=== PATIENT | female | born 1985 | race Caucasian/White ===

== ENCOUNTER → 2019-07-05 14:33 | Outpatient (BNVA) | payer MEDICAID, SELFPAY | PROVIDERS: Family Provider Family Medicine; PCP Family Medicine; Visit Provider Emergency Medicine | DX: R05 Cough (principal) | CPT/HCPCS: 71046 ==

== ENCOUNTER 2022-03-01 12:29 | Emergency (ER) | payer MEDICAID, SELFPAY ==
[2022-03-01 12:32] VITALS: BP 138/96; PULSE 105; RESP 16; TEMP 36.2; O2SAT 99; BMI 24.0
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
--- NOTE | 2022-03-01 13:04 | ECG_ITS ---
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
[2022-03-01 13:16] LABS: Glucose Point of Care 393 mg/dL (70-110)
[2022-03-01] MEDS: ondansetron 2 mg/ML SDV 2 mL 4 MG IVP (13:28)
[2022-03-01] MEDS: sodium chloride 0.9% 1,000 ML 999 ML IV (13:28)
[2022-03-01 13:39] LABS: Basophils # 0.1 10^3/uL (0.0-0.1); Basophils % 0.9 %; Eosinophils # 0.4 10^3/uL (0.0-0.8); Hematocrit 36.2 % (37.0-47.0); Lymphocytes # 3.6 10^3/uL (0.8-4.8); Lymphocytes % 33.9 %; Mean Corpuscular HGB Conc 35.9 g/dL (30.0-36.0); Mean Corpuscular Hemoglobin 31.6 pg (28.0-34.0); Mean Corpuscular Volume 87.9 fl (81-99); Mean Platelet Volume 10.5 fL (7.4-10.4); Monocytes # 0.7 10^3/uL (0.2-0.9); Monocytes % 6.4 %; Neutrophils # 5.73 10^3/uL (1.8-7.7); Neutrophils % 54.6 %; Nucleated Red Blood Cells % 0 %; Platelet Count 345 10^3/cmm (130-400); Red Blood Count 4.12 10^6/uL (4.1-5.3); Red Cell Distribution Width 11.7 % (12.1-15.1); White Blood Count 10.5 10^3/uL (4.0-10.0)
[2022-03-01 13:59] LABS: Ketone (Acetest) Serum Negative (Negative)
[2022-03-01 14:03] LABS: HCG Qualitative Urine. Negative (Negative)
[2022-03-01 14:10] VITALS: BP 140/75; PULSE 101; RESP 16; O2SAT 98
[2022-03-01 14:11] LABS: Amphetamines Screen Urine Positive (Negative); Barbiturates Screen Urine Negative (Negative); Benzodiazepines Screen Urine Negative (Negative); Cocaine Screen Urine Negative (Negative); Opiate Screen Urine Negative (Negative); PCP Screen Urine Negative (Negative); THC Screen Urine Negative (Negative)
[2022-03-01 14:18] LABS: Blood Urine 2+ (Negative); Ketones Urine 1+ (Negative); Nitrate Urine Negative (Negative); Protein Urine Trace (Negative); Specific Gravity, Urine 1.015 (1.005-1.030); Urine Appearance Clear (CLEAR); Urine Color Straw (Yellow); pH Urine 5 (5-7)
[2022-03-01 14:19] LABS: Add Urine Culture? No; Add Urine Microscopic? YES; Bacteria Urine TRACE /hpf; Bilirubin Urine Neg (Negative); Glucose Urine UA 4+ (Normal); Leukocyte Esterase Urine Negative (Negative); RBC Urine 0-4 /hpf (0-2); Urobilinogen Urine Norm (Negative); WBC Urine RARE /hpf (0-5)
[2022-03-01 14:20] LABS: Alanine Aminotransferase 15 U/L (0-33); Albumin Level 4.5 g/dL (3.5-5.2); Alkaline Phosphatase 67 U/L (35-105); Aspartate Amino Transferase 12 U/L (0-32); Blood Urea Nitrogen 18 mg/dL (6-20); Calcium 9.7 mg/dL (8.5-10.5); Carbon Dioxide 24 mmol/L (22-29); Chloride 93 mmol/L (98-107); Globulin 3.6 g/dL (1.3-4.6); Glomerular Filtration Rate 62.7 mL/min (90-130); Glucose 369 mg/dL (65-115); Magnesium 1.8 mg/dL (1.7-2.3); Osmolality Calculated 287 mOsm/kg (285-295); Salicylate 0.9 mg/dL (3-10); Sodium 130 mmol/L (136-145); Thyroid Stimulating Hormone 78.85 uIU/mL (0.27-4.20); Total Bilirubin 0.4 mg/dL (0.15-1.2); Total Protein 8.1 g/dL (6.6-8.7)
[2022-03-01 14:21] LABS: Acetaminophen < 5.0 ug/mL (10-30); Alcohol Level < 10 mg/dL (0-10)
[2022-03-01] MEDS: iohexol 350 mg/mL 100 mL Btl IV (14:45)
[2022-03-01 14:58] LABS: Free T4 Free Thyroxine 0.49 ng/dL (0.82-1.77)
[2022-03-01 15:00] VITALS: BP 104/64; PULSE 84; O2SAT 98
[2022-03-01 15:58] VITALS: BP 99/70; PULSE 83; RESP 18; O2SAT 99
== END 2022-03-01 16:11 | disposition home or self-care (01) ==
PROVIDERS: Emergency Provider Emergency Medicine; PCP Family Medicine
DX: S06.9X0A Unspecified intracranial injury without loss of consciousness, initial encounter (principal); E03.9 Hypothyroidism, unspecified; F07.81 Postconcussional syndrome; E86.0 Dehydration; T14.8XXA Other injury of unspecified body region, initial encounter; E10.9 Type 1 diabetes mellitus without complications; Y09 Assault by unspecified means
CPT/HCPCS: 36416; 70486; 70496; 70498; 80053; 80306; 80307; 81001; 81025; 82009; 82962; 83735; 84439; 84443; 85025; 93005; 96361; 96374; 99285; J2405; J7030; Q9967

== ENCOUNTER 2022-11-26 15:22 | Inpatient (IN) | payer MEDICAID, SELFPAY ==
[2022-11-26 15:29] VITALS: BP 109/73; PULSE 100; RESP 18; TEMP 36.6; O2SAT 93; BMI 24.0
--- NOTE | 2022-11-26 15:38 | W.ED.PSYCHS ---
Documented by User: MARCO ANTONIO Carrillo 11/27/22 16:59 HPI - Psych General: Chief Complaint: General Medical Stated Complaint: Mental Eval Time Seen by Provider: 11/26/22 15:38 Source: patient Mode of arrival: ambulatory Limitations: no limitations History of Present Illness: Patient is a 37-year-old female who presents to the ED today stating that she wants to get back on her antidepressant medication and wants to detox from methamphetamine. Patient tells me she used to take an antidepressant medication a long time ago (cannot give me a timeframe) and wants to be put back on this medication. She does not know the name of it. She states her depression has been worsening. She states she is not suicidal but that I will say anything that I need to say to be admitted to the stress unit . When asked if she has a primary care provider or a psychiatric medication provider that she could potentially see as an outpatient to get restarted on her antidepressant she states if you guys are not going to fucking help me then I will go out in the parking lot and kill myself . She denies HI. Denies hallucinations. complaint: feels depressed Onset (ago): week(s) Duration: constant History of same: Yes Relieving factors: none Context: significant life stressor Associated psychiatric symptoms: depression Associated symptoms: Reports depression; Deny auditory hallucinations, visual hallucinations, homicidal ideation or suicidal ideation Treatments prior to arrival: none Review of Systems Const: Denies: fever(s) or chills Card: Denies: chest pain, palpitations, lightheadedness or syncope Resp: Denies: dyspnea GI: Denies: abdominal pain, nausea, vomiting or diarrhea Skin/Breast: Denies: rash Neuro: Denies: headache(s) Psych: Reports: anxiety and depression; Denies: visual hallucinations, auditory hallucinations, suicidal ideation or homicidal ideation FOR[facility]LY [facility] ED PFSH: Medical History Hypothyroidism Psychiatric disorder Type 1 diabetes mellitus Surgical History H/O section H/O kidney removal LEFT SIDE H/O tubal ligation Social History Smoking and tobacco status: current every day smoker cigarettes Packs smoked per day: 2 Quit status (tobacco): not considering quitting Second hand smoke exposure: Yes Alcohol intake: current Alcohol intake frequency: holidays/special occasions only Substance/Drug Use: former Desire information about substance/drug rehabilitation?: No Female Reproductive History: Spontaneous abortions: No Physical Exam Const: COMMON NORMALS: no acute distress, patient oriented x3, no limitations, alert and well nourished GENERAL APPEARANCE: other (agitated) ORIENTATION/CONSCIOUSNESS: Yes awake, Yes oriented to person, Yes oriented to place and Yes oriented to time Resp: COMMON NORMALS: normal respiratory effort and clear to auscultation bilaterally AUSCULTATION: clear to auscultation bilaterally Cardio: COMMON NORMALS: regular rate and regular rhythm RATE: regular rate RHYTHM: regular rhythm Neuro: COMMON NORMALS: patient oriented x3 SENSORIUM/ORIENTATION: Yes alert, Yes oriented to person, Yes oriented to place and Yes oriented to time Psych: COMMON NORMALS: mental status grossly normal, Normal thought process present, cooperative, normal affect, speech normal, activity/motor behavior normal, denies hallucinations, denies homicidal ideation and denies suicidal ideation APPEARANCE: Yes grossly normal ATTITUDE: Yes agitated ACTIVITY/MOTOR BEHAVIOR: Yes appropriate eye contact and No psychomotor agitation SPEECH: Yes normal speech MOOD & AFFECT: Yes euthymic mood THOUGHT PROCESS: Normal thought process present THOUGHT CONTENT: Yes Normal thought content present ATTENTION/CONCENTRATION: Yes attention grossly intact and Yes concentration grossly intact MEMORY/COGNITION: Yes memory grossly intact and Yes cognition grossly intact INSIGHT: Good insight present (Psych) JUDGEMENT: Good judgement present (Psych) Course Consultations: Consultation #1: Dr. Carrasco-accepts admit to NPU pending lab clearance Vital Signs: Vital signs: Vital Signs Temperature 98.4 F 11/27/22 14:00 Pulse Rate 90 11/27/22 14:00 Respiratory Rate 20 H 11/27/22 14:00 Blood Pressure 106/66 11/27/22 14:00 Pulse Oximetry 99 11/27/22 14:00 Oxygen Delivery Me thod Room Air 11/27/22 14:00 MDM - Psych Medical Decision Making Patient will be admitted to NPU to Dr. Carrasco for treatment of depression and methamphetamine abuse pending lab clearance. ES Patient presents here with suicidal ideation she is also very hyperglycemic here due to noncompliance I did give her insulin and fluids her blood sugar is now 144 sodium is corrected now as well I did speak to Dr. Carrasco again and will admit Lab Data 11/26/22 16:37 11/26/22 20:42 Laboratory Results WBC 9.0 10^3/uL (4.0-10.0) 11/26/22 16:37 RBC 4.64 10^6/uL (4.1-5.3) 11/26/22 16:37 Hgb 14.0 g/dL (11.5-15.3) 11/26/22 16:37 Hct 40.2 % (37.0-47.0) 11/26/22 16:37 MCV 86.6 fl (81-99) 11/26/22 16:37 MCH 30.2 pg (28.0-34.0) 11/26/22 16:37 MCHC 34.8 g/dL (30.0-36.0) 11/26/22 16:37 RDW 11.9 % (12.1-15.1) L 11/26/22 16:37 Plt Count 312 10^3/cmm (130-400) 11/26/22 16:37 MPV 9.8 fL (7.4-10.4) 11/26/22 16:37 Neut % (Auto) 65.9 % 11/26/22 16:37 Lymph % (Auto) 24.9 % 11/26/22 16:37 [place] % (Auto) 5.6 % 11/26/22 16:37 Eos % (Auto) 2.7 % 11/26/22 16:37 Baso % (Auto) 0.7 % 11/26/22 16:37 Neut # (Auto) 5.96 10^3/uL (1.8-7.7) 11/26/22 16:37 Lymph # (Auto) 2.3 10^3/uL (0.8-4.8) 11/26/22 16:37 [place] # (Auto) 0.5 10^3/uL (0.2-0.9) 11/26/22 16:37 Eos # (Auto) 0.2 10^3/uL (0.0-0.8) 11/26/22 16:37 Baso # (Auto) 0.1 10^3/uL (0.0-0.1) 11/26/22 16:37 Nucleated RBC % (auto) 0 % 11/26/22 16:37 Nucleated RBCs # 0.0 /100WBC 11/26/22 16:37 Sodium 119 mmol/L (136-145) L* 11/26/22 16:37 Potassium 4.5 mmol/L (3.5-5.1) 11/26/22 16:37 Chloride 85 mmol/L (98-107) L 11/26/22 16:37 Carbon Dioxide 23 mmol/L (22-29) 11/26/22 16:37 Anion Gap 15.5 (5-19) 11/26/22 16:37 BUN 17 mg/dL (6-20) 11/26/22 16:37 Creatinine 1.0 mg/dL (0.5-0.9) H 11/26/22 16:37 GFR Calculation 62.4 mL/min (90-130) L 11/26/22 16:37 Glucose 841 mg/dL (65-115) H* 11/26/22 16:37 Calculated Osmolality 291 mOsm/kg (285-295) 11/26/22 16:37 Calcium 9.2 mg/dL (8.5-10.5) 11/26/22 16:37 Total Bilirubin 0.7 mg/dL (0.15-1.2) 11/26/22 16:37 AST 10 U/L (0-32) 11/26/22 16:37 ALT 9 U/L (0-33) 11/26/22 16:37 Alkaline Phosphatase 84 U/L (35-105) 11/26/22 16:37 Total Protein 7.6 g/dL (6.6-8.7) 11/26/22 16:37 Albumin 4.2 g/dL (3.5-5.2) 11/26/22 16:37 Globulin 3.4 g/dL (1.3-4.6) 11/26/22 16:37 HCG, Qual Negative (Negative) 11/26/22 16:37 Salicylates < 0.3 mg/dL (3-10) L 11/26/22 16:37 Acetaminophen < 5.0 ug/mL (10-30) L 11/26/22 16:37 Ethyl Alcohol < 10 mg/dL (0-10) 11/26/22 16:37 Discharge Plan Discharge Patient Disposition: Admitted As Inpatient Admit Provider: Joseph Carrasco Clinical Impression: Depression, Methamphetamine abuse, Type 1 diabetes mellitus Condition: Stable Coding Level of Care Code ED School Year Nanny for Chg Fwd Documented by User: Sirena Hernandez MD 11/26/22 21:26 HPI - Psych General: Chief Complaint: General Medical Stated Complaint: Mental Eval Time Seen by Provider: 11/26/22 15:38 PFSH ED PFSH: Medical History Hypothyroidism Psychiatric disorder Type 1 diabetes mellitus Surgical History H/O section H/O kidney removal LEFT SIDE H/O tubal ligation Social History Smoking and tobacco status: current every day smoker cigarettes Packs smoked per day: 2 Quit status (tobacco): not considering quitting Second hand smoke exposure: Yes Alcohol intake: current Alcohol intake frequency: holidays/special occasions only Substance/Drug Use: former Desire information about substance/drug rehabilitation?: No Course Vital Signs: Vital signs: Vital Signs Temperature 98.4 F 11/27/22 14:00 Pulse Rate 90 11/27/22 14:00 Respiratory Rate 20 H 11/27/22 14:00 Blood Pressure 106/66 11/27/22 14:00 Pulse Oximetry 99 11/27/22 14:00 Oxygen Delivery Me thod Room Air 11/27/22 14:00 MDM - Psych Medical Decision Making Patient will be admitted to NPU to Dr. Carrasco for treatment of depression and methamphetamine abuse. Patient presents here with suicidal ideation she is also very hyperglycemic here due to noncompliance I did give her insulin and fluids her blood sugar is now 144 sodium is corrected now as well I did speak to Dr. Carrasco again and will admit Lab Data 11/26/22 16:37 11/26/22 20:42 Laboratory Results WBC 9.0 10^3/uL (4.0-10.0) 11/26/22 16:37 RBC 4.64 10^6/uL (4.1-5.3) 11/26/22 16:37 Hgb 14.0 g/dL (11.5-15.3) 11/26/22 16:37 Hct 40.2 % (37.0-47.0) 11/26/22 16:37 MCV 86.6 fl (81-99) 11/26/22 16:37 MCH 30.2 pg (28.0-34.0) 11/26/22 16:37 MCHC 34.8 g/dL (30.0-36.0) 11/26/22 16:37 RDW 11.9 % (12.1-15.1) L 11/26/22 16:37 Plt Count 312 10^3/cmm (130-400) 11/26/22 16:37 MPV 9.8 fL (7.4-10.4) 11/26/22 16:37 Neut % (Auto) 65.9 % 11/26/22 16:37 Lymph % (Auto) 24.9 % 11/26/22 16:37 [place] % (Auto) 5.6 % 11/26/22 16:37 Eos % (Auto) 2.7 % 11/26/22 16:37 Baso % (Auto) 0.7 % 11/26/22 16:37 Neut # (Auto) 5.96 10^3/uL (1.8-7.7) 11/26/22 16:37 Lymph # (Auto) 2.3 10^3/uL (0.8-4.8) 11/26/22 16:37 [place] # (Auto) 0.5 10^3/uL (0.2-0.9) 11/26/22 16:37 Eos # (Auto) 0.2 10^3/uL (0.0-0.8) 11/26/22 16:37 Baso # (Auto) 0.1 10^3/uL (0.0-0.1) 11/26/22 16:37 Nucleated RBC % (auto) 0 % 11/26/22 16:37 Nucleated RBCs # 0.0 /100WBC 11/26/22 16:37 Sodium 119 mmol/L (136-145) L* 11/26/22 16:37 Potassium 4.5 mmol/L (3.5-5.1) 11/26/22 16:37 Chloride 85 mmol/L (98-107) L 11/26/22 16:37 Carbon Dioxide 23 mmol/L (22-29) 11/26/22 16:37 Anion Gap 15.5 (5-19) 11/26/22 16:37 BUN 17 mg/dL (6-20) 11/26/22 16:37 Creatinine 1.0 mg/dL (0.5-0.9) H 11/26/22 16:37 GFR Calculation 62.4 mL/min (90-130) L 11/26/22 16:37 Glucose 841 mg/dL (65-115) H* 11/26/22 16:37 Calculated Osmolality 291 mOsm/kg (285-295) 11/26/22 16:37 Calcium 9.2 mg/dL (8.5-10.5) 11/26/22 16:37 Total Bilirubin 0.7 mg/dL (0.15-1.2) 11/26/22 16:37 AST 10 U/L (0-32) 11/26/22 16:37 ALT 9 U/L (0-33) 11/26/22 16:37 Alkaline Phosphatase 84 U/L (35-105) 11/26/22 16:37 Total Protein 7.6 g/dL (6.6-8.7) 11/26/22 16:37 Albumin 4.2 g/dL (3.5-5.2) 11/26/22 16:37 Globulin 3.4 g/dL (1.3-4.6) 11/26/22 16:37 HCG, Qual Negative (Negative) 11/26/22 16:37 Salicylates < 0.3 mg/dL (3-10) L 11/26/22 16:37 Acetaminophen < 5.0 ug/mL (10-30) L 11/26/22 16:37 Ethyl Alcohol < 10 mg/dL (0-10) 11/26/22 16:37 Discharge Plan Discharge Patient Disposition: Admitted As Inpatient Admit Provider: Joseph Carrasco Clinical Impression: Depression, Methamphetamine abuse, Type 1 diabetes mellitus Condition: Stable Coding Level of Care Code ED School Year Nanny for 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
[2022-11-26 16:46] LABS: Basophils # 0.1 10^3/uL (0.0-0.1); Basophils % 0.7 %; Eosinophils # 0.2 10^3/uL (0.0-0.8); Eosinophils % 2.7 %; Hematocrit 40.2 % (37.0-47.0); Lymphocytes # 2.3 10^3/uL (0.8-4.8); Lymphocytes % 24.9 %; Mean Corpuscular HGB Conc 34.8 g/dL (30.0-36.0); Mean Corpuscular Hemoglobin 30.2 pg (28.0-34.0); Mean Corpuscular Volume 86.6 fl (81-99); Mean Platelet Volume 9.8 fL (7.4-10.4); Monocytes # 0.5 10^3/uL (0.2-0.9); Monocytes % 5.6 %; Neutrophils # 5.96 10^3/uL (1.8-7.7); Neutrophils % 65.9 %; Nucleated Red Blood Cells % 0 %; Platelet Count 312 10^3/cmm (130-400); Red Blood Count 4.64 10^6/uL (4.1-5.3); Red Cell Distribution Width 11.9 % (12.1-15.1)
[2022-11-26 16:58] VITALS: O2SAT 100
[2022-11-26 17:03] LABS: HCG, Serum Qual Negative (Negative)
[2022-11-26 17:04] LABS: Alanine Aminotransferase 9 U/L (0-33); Albumin Level 4.2 g/dL (3.5-5.2); Alkaline Phosphatase 84 U/L (35-105); Anion Gap 15.5 (5-19); Aspartate Amino Transferase 10 U/L (0-32); Blood Urea Nitrogen 17 mg/dL (6-20); Calcium 9.2 mg/dL (8.5-10.5); Carbon Dioxide 23 mmol/L (22-29); Chloride 85 mmol/L (98-107); Globulin 3.4 g/dL (1.3-4.6); Glomerular Filtration Rate 62.4 mL/min (90-130); Potassium 4.5 mmol/L (3.5-5.1); Total Bilirubin 0.7 mg/dL (0.15-1.2); Total Protein 7.6 g/dL (6.6-8.7)
[2022-11-26 17:14] LABS: Osmolality Calculated 291 mOsm/kg (285-295)
[2022-11-26 17:15] LABS: Acetaminophen < 5.0 ug/mL (10-30); Alcohol Level < 10 mg/dL (0-10); Salicylate < 0.3 mg/dL (3-10)
[2022-11-26 17:16] LABS: Glucose 841 mg/dL (65-115); Sodium 119 mmol/L (136-145)
[2022-11-26 18:01] LABS: ABG PCO2 40.3 mmHg (35-45); Arterial Blood Gas Hematocrit 40.6 % (37-47); Blood Gas Allen Test Pos; Blood Gas Operator Identificat CAK; Blood Gas Sample Site Brachial, right; Blood Gas Sample Type Arterial; HCO3 ABG 24.9 mmol/L (22-26); Oxygen Device ROOM AIR; PO2 ABG 87.4 mmHg (80.0-100.0)
--- NOTE | 2022-11-26 19:11 | PC.NURSE ---
96 hours rights read to patient. Patient verbalized understandings. A copy was placed at the bedside.
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
--- NOTE | 2022-11-26 19:27 | PC.NURSE ---
PT REFUSED ATIVAN STATING I FEEL MUCH CALMER NOW. I DON'T THINK I NEED IT.
[2022-11-26] MEDS: sodium chloride 0.9% 1,000 ML 999 ML IV ×2 (19:44→20:53)
[2022-11-26] MEDS: insulin regular-human 15 UNIT in SYRINGE 1 EACH IVP (19:45)
[2022-11-26 20:35] LABS: Glucose Point of Care 352 mg/dL (70-110)
[2022-11-26 21:13] LABS: Anion Gap 15.6 (5-19); Blood Urea Nitrogen 16 mg/dL (6-20); Calcium 8.6 mg/dL (8.5-10.5); Carbon Dioxide 23 mmol/L (22-29); Chloride 103 mmol/L (98-107); Glomerular Filtration Rate 62.4 mL/min (90-130); Glucose 144 mg/dL (65-115); Osmolality Calculated 290 mOsm/kg (285-295); Potassium 3.6 mmol/L (3.5-5.1); Sodium 138 mmol/L (136-145)
[2022-11-26 22:40] VITALS: BP 101/72; PULSE 107; RESP 14; TEMP 36.6; O2SAT 96
[2022-11-26 22:56] LABS: Glucose Point of Care 113 mg/dL (70-110)
[2022-11-27 06:00] VITALS: BP 105/69; PULSE 82; RESP 16; TEMP 36.9; O2SAT 98
[2022-11-27 06:18] LABS: Glucose Point of Care 305 mg/dL (70-110)
[2022-11-27] MEDS: insulin glargine 100 units/1 mL 30 UNIT SUBCUT (06:19)
[2022-11-27 08:27] LABS: Glucose Point of Care 287 mg/dL (70-110)
[2022-11-27] MEDS: levothyroxine 50 mcg Tablet 125 MCG PO (08:28)
[2022-11-27] MEDS: insulin lispro 100 unit/1 mL SUBCUT ×3 (08:29→17:56)
--- NOTE | 2022-11-27 08:53 | PC.NURSE ---
woke pt up for breakfast, pt came out of room standing by the wall near nurses station visably shaking and arms crossed around her. I asked pt if she was ok, did she go down to eat breakfast, did she need anything to drink, pt shook head no to all question. I asked patient if she would like me to bring her breakfast to her room she shook her head yes. brought pt meal to her room sat and spoke with her, she stated anxiety when asked if that was normal for her she stated no but refused any medication for anxiety. pt eating breakfast speaking to case management when i left .
--- NOTE | 2022-11-27 10:58 | PC.OT ---
OT EVALUATION ATTEMPTED TWICE THIS A.M. PATIENT IS SLEEPING SOUNDLY; WILL ATTEMPT AGAIN ON WEDNESDAY
[2022-11-27 12:11] LABS: Glucose Point of Care 238 mg/dL (70-110)
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
[2022-11-27 13:42] LABS: Amphetamines Screen Urine Positive (Negative); Barbiturates Screen Urine Negative (Negative); Benzodiazepines Screen Urine Negative (Negative); Cocaine Screen Urine Negative (Negative); Opiate Screen Urine Negative (Negative); PCP Screen Urine Negative (Negative); THC Screen Urine Negative (Negative)
[2022-11-27 14:00] VITALS: BP 106/66; PULSE 90; RESP 20; TEMP 36.9; O2SAT 99
[2022-11-27 17:50] LABS: Glucose Point of Care 250 mg/dL (70-110)
[2022-11-27 20:44] LABS: Glucose Point of Care 117 mg/dL (70-110)
[2022-11-27 20:51] VITALS: BP 115/64; PULSE 95; RESP 16; TEMP 37; O2SAT 99
[2022-11-27] MEDS: insulin glargine 100 units/1 mL 25 UNIT SUBCUT (21:03)
[2022-11-28 06:00] VITALS: BP 104/70; PULSE 77; RESP 16; TEMP 37; O2SAT 98
[2022-11-28 08:08] LABS: Glucose Point of Care 292 mg/dL (70-110)
[2022-11-28] MEDS: insulin glargine 100 units/1 mL 30 UNIT SUBCUT (08:23)
[2022-11-28] MEDS: levothyroxine 50 mcg Tablet 125 MCG PO (08:24)
[2022-11-28] MEDS: insulin lispro 100 unit/1 mL SUBCUT ×4 (08:45→20:53)
[2022-11-28 09:47] VITALS: PULSE 77; RESP 16; O2SAT 98
[2022-11-28 11:57] LABS: Glucose Point of Care 161 mg/dL (70-110)
[2022-11-28 14:00] VITALS: BP 108/69; PULSE 86; RESP 15; TEMP 36.8; O2SAT 98
--- NOTE | 2022-11-28 15:24 | W.PM.NPUPNS ---
Subjective NPU Subjective: Patient is in today reporting that she is feeling tired. We discussed the likelihood that being secondary to depression from methamphetamine. 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 Otherwise she reports doing the same as yesterday and is very tired. Staff report her being isolative, not getting out of bed except for meals. Mental Status Exam MSE Comments: This is a well-nourished well-developed white female in hospital scrubs with limited grooming and eye contact. No abnormal movements except for psychomotor retardation. Intermittently cooperative with exam in mild to moderate distress. Speech was limited and decreased rate and volume. Mood described as tired, is okay to sleep, affect congruent and less irritable. Thought process organized. Thought content: Patient endorsed suicidal ideation but denied homicidal ideation, there were no delusions reported but she appeared to be paranoid. Guarded, she denied auditory or visual hallucinations. Attention and concentration were limited and memory was somewhat reliable but none were formally tested. She alert and oriented times person and place. Insight and judgment are limited and impulse control is impaired. Vitals/I&O/Wt Last Vital Signs Temp 98.2 F 11/28/22 14:00 Pulse 106 H 11/28/22 21:27 Resp 18 11/28/22 21:27 BP 106/74 11/28/22 21:27 Pulse Ox 97 11/28/22 21:27 O2 Del Method Room Air 11/28/22 14:00 Weight last 48 hrs Weight 61.779 kg Data NPU 11/26/22 16:37 11/26/22 20:42 A&P Assessment and plan (1) Depression: Qualifiers: Active/Remission status: currently active Major depression episode severity: unspecified Major depression recurrence: recurrent (2) Hypothyroidism: (3) Type 1 diabetes mellitus: (4) H/O kidney removal: (5) Methamphetamine use disorder, severe: Plan This is a 37-year-old white female with a long history of mental health and addiction issues who presents reporting ongoing depression with active addiction specifically with amphetamines who presents with suicidal ideation and reports for need to restart her medication. 1. Continue current medication. Restart Lexapro to milligrams p.o. every morning. 2. Continue every 15 minute checks for safety. 3. Encourage individual, group and milieu therapy. 4. Encourage sober living treatment after discharge at the highest level care to which she is willing to commit. Involuntary Hold Information 96 Hour Hold: 96 Hour Involuntary Admission: Yes 96 Hour Hold Ending Date: 12/02/22 96 Hour Hold Ending Time: 18:29 Attestations NPU Medical Necessity Statement*: Inpatient hospitalization is medically necessary and the clinically appropriate intervention at this time. We will monitor medications and make changes as indicated. Likely to stay 4-6 days. Coding Level of Care Code Acute Code for Chg Fwd Diagnoses Depression F32.A Active/Remission status: currently active Major depression episode severity: unspecified Major depression recurrence: recurrent Hypothyroidism E03.9 Type 1 diabetes mellitus E10.9 H/O kidney removal Z90.5 Methamphetamine use disorder, severe F15.20
[2022-11-28] MEDS: escitalopram 10 mg Tablet PO (15:58)
[2022-11-28 17:12] LABS: Glucose Point of Care 255 mg/dL (70-110)
[2022-11-28] MEDS: insulin glargine 100 units/1 mL 25 UNIT SUBCUT (20:53)
[2022-11-28 21:18] LABS: Glucose Point of Care 194 mg/dL (70-110)
[2022-11-28 21:27] VITALS: BP 106/74; PULSE 106; RESP 18; O2SAT 97
[2022-11-29 06:00] VITALS: BP 100/67; PULSE 85; RESP 16; TEMP 36.7; O2SAT 97
[2022-11-29 08:00] VITALS: PULSE 74; RESP 18; O2SAT 97
[2022-11-29 08:08] LABS: Glucose Point of Care 101 mg/dL (70-110)
[2022-11-29] MEDS: levothyroxine 50 mcg Tablet 125 MCG PO (08:34)
[2022-11-29] MEDS: escitalopram 10 mg Tablet PO (08:35)
[2022-11-29] MEDS: insulin glargine 100 units/1 mL 30 UNIT SUBCUT ×2 (08:36→09:07)
--- NOTE | 2022-11-29 10:29 | P.NPUPN_ITS ---
Subjective NPU Subjective: Patient presented today reporting that she is feeling worse. She reports that she has a 7-day custodial term treatment To serve for having a positive drug screen. She is unsure whether she has to serve this before going to [facility] or after she goes there. She reports that that is her plan however to get through this withdrawal and get on this antidepressant and go there for a year. Mental Status Exam MSE Comments: This is a well-nourished well-developed white female in hospital scrubs with limited grooming and eye contact. No abnormal movements except for psychomotor retardation. Intermittently cooperative with exam in mild to moderate distress. Speech was limited and decreased rate and volume. Mood described as tired, is okay to sleep, affect congruent and less irritable. Thought process organized. Thought content: Patient endorsed suicidal ideation but denied homicidal ideation, there were no delusions reported but she appeared to be paranoid. Guarded, she denied auditory or visual hallucinations. Attention and concentration were limited and memory was somewhat reliable but none were formally tested. She alert and oriented times person and place. Insight and judgment are limited and impulse control is impaired. Vitals/I&O/Wt Last Vital Signs Temp 98.1 F 11/29/22 06:00 Pulse 85 11/29/22 06:00 Resp 16 11/29/22 06:00 BP 100/67 11/29/22 06:00 Pulse Ox 97 11/29/22 06:00 O2 Del Method Room Air 11/28/22 14:00 Weight last 48 hrs Weight 61.779 kg Data NPU 11/26/22 16:37 11/26/22 20:42 A&P Assessment and plan (1) Depression: Qualifiers: Active/Remission status: currently active Major depression episode severity: unspecified Major depression recurrence: recurrent (2) Hypothyroidism: (3) Type 1 diabetes mellitus: (4) H/O kidney removal: (5) Methamphetamine use disorder, severe: Plan This is a 37-year-old white female with a long history of mental health and addiction issues who presents reporting ongoing depression with active addiction specifically with amphetamines who presents with suicidal ideation and reports for need to restart her medication. 1. Continue current medication. Restarted Lexapro to milligrams p.o. every morning. 2. Continue every 15 minute checks for safety. 3. Encourage individual, group and milieu therapy. 4. Encourage sober living treatment after discharge at the highest level care to which she is willing to commit. Involuntary Hold Information 96 Hour Hold: 96 Hour Involuntary Admission: Yes 96 Hour Hold Ending Date: 12/02/22 96 Hour Hold Ending Time: 18:29 Attestations NPU Medical Necessity Statement*: Inpatient hospitalization is medically necessary and the clinically appropriate intervention at this time. We will monitor medications and make changes as indicated. Likely to stay 2-4 days. Coding Level of Care Code Acute Code for g Fwd Diagnoses Depression F32.A Active/Remission status: currently active Major depression episode severity: unspecified Major depression recurrence: recurrent Hypothyroidism E03.9 Type 1 diabetes mellitus E10.9 H/O kidney removal Z90.5 Methamphetamine use disorder, severe F15.20
[2022-11-29 11:54] LABS: Glucose Point of Care 174 mg/dL (70-110)
[2022-11-29] MEDS: insulin lispro 100 unit/1 mL SUBCUT ×2 (12:00→17:59)
[2022-11-29 14:00] VITALS: BP 104/70; PULSE 87; RESP 14; TEMP 36.7; O2SAT 98
[2022-11-29 17:32] LABS: Glucose Point of Care 177 mg/dL (70-110)
[2022-11-29 20:20] VITALS: BP 103/69; PULSE 86; RESP 16; TEMP 36.9; O2SAT 98
[2022-11-29 20:35] LABS: Glucose Point of Care 375 mg/dL (70-110)
[2022-11-29] MEDS: insulin glargine 100 units/1 mL 25 UNIT SUBCUT (20:42)
--- NOTE | 2022-11-29 20:44 | PC.NURSE ---
pt blood glucose at HS was 375mg/dL, pt accepted scheduled dose of lantus but refused fast acting humalog d/t concern that combined it would bottom out her blood sugar. this nurse informed the pt of her blood sugar level and importance of glycemic control and pt reiterated her concern over possible hypoglycemia. this nurse administered lantus and wasted 12 units fast acting insulin in the pyxis and placed in sharps container.
[2022-11-30 06:00] VITALS: BP 103/69; PULSE 85; RESP 16; TEMP 36.6; O2SAT 97
[2022-11-30] MEDS: levothyroxine 125 mcg Tablet PO (06:08)
[2022-11-30 08:52] LABS: Glucose Point of Care 279 mg/dL (70-110)
[2022-11-30] MEDS: insulin lispro 100 unit/1 mL SUBCUT ×2 (08:52→17:52)
[2022-11-30] MEDS: escitalopram 10 mg Tablet PO (08:53)
[2022-11-30] MEDS: insulin glargine 100 units/1 mL 30 UNIT SUBCUT (08:53)
--- NOTE | 2022-11-30 09:03 | PC.NURSE ---
Patient uncooperative with full assessment. Attempted to ask her multiple questions, but just replied, I don't know. I just want to go to bed, to every question. Patient appears irritated, with arms crossed.
[2022-11-30 11:59] LABS: Glucose Point of Care 68 mg/dL (70-110)
[2022-11-30 14:00] VITALS: BP 112/56; PULSE 87; RESP 16; TEMP 36.5; O2SAT 97
--- NOTE | 2022-11-30 15:23 | P.NPUPN_ITS ---
Subjective NPU Subjective: Patient presents today reporting that she is doing fine. 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 She continues to be quite isolative but appears to be recovering from her methamphetamine withdrawal. She denies any problems medication and we discussed the likelihood of discharge this week. Mental Status Exam MSE Comments: This is a well-nourished well-developed white female in hospital scrubs with limited grooming and eye contact. No abnormal movements except for psychomotor retardation. Intermittently cooperative with exam in mild to moderate distress. Speech was limited and decreased rate and volume. Mood described as tired, is okay to sleep, affect congruent and less irritable. Thought process organized. Thought content: Patient endorsed suicidal ideation but denied homicidal ideation, there were no delusions reported but she appeared to be paranoid. Guarded, she denied auditory or visual hallucinations. Attention and concentration were limited and memory was somewhat reliable but none were form ally tested. She alert and oriented times person and place. Insight and judgment are limited and impulse control is impaired. Vitals/I&O/Wt Last Vital Signs Temp 98.5 F 11/30/22 20:31 Pulse 91 11/30/22 20:31 Resp 16 11/30/22 20:31 BP 95/65 11/30/22 20:31 Pulse Ox 99 11/30/22 20:31 O2 Del Method Room Air 11/30/22 20:00 Weight last 48 hrs Weight 61.779 kg Data NPU 11/26/22 16:37 11/26/22 20:42 A&P Assessment and plan (1) Depression: Qualifiers: Active/Remission status: currently active Major depression episode severity: unspecified Major depression recurrence: recurrent (2) Hypothyroidism: (3) Type 1 diabetes mellitus: (4) H/O kidney removal: (5) Methamphetamine use disorder, severe: Plan This is a 37-year-old white female with a long history of mental health and addiction issues who presents reporting ongoing depression with active addiction specifically with amphetamines who presents with suicidal ideation and reports for need to restart her medication. 1. Continue current medication. Restarted Lexapro to milligrams p.o. every morning. 2. Continue every 15 minute checks for safety. 3. Encourage individual, group and milieu therapy. 4. Encourage sober living treatment after discharge at the highest level care to which she is willing to commit. Involuntary Hold Information 96 Hour Hold: 96 Hour Involuntary Admission: Yes 96 Hour Hold Ending Date: 12/02/22 96 Hour Hold Ending Time: 18:29 Attestations NPU Medical Necessity Statement*: Inpatient hospitalization is medically necessary and the clinically appropriate intervention at this time. We will monitor medications and make changes as indicated. Likely to stay 1-3 days. Coding Level of Care Code Acute Code for Chg Fwd Diagnoses Depression F32.A Active/Remission status: currently active Major depression episode severity: unspecified Major depression recurrence: recurrent Hypothyroidism E03.9 Type 1 diabetes mellitus E10.9 H/O kidney removal Z90.5 Methamphetamine use disorder, severe F15.20
[2022-11-30 17:46] LABS: Glucose Point of Care 371 mg/dL (70-110)
[2022-11-30 20:00] VITALS: PULSE 76; RESP 18; O2SAT 96
[2022-11-30 20:31] VITALS: BP 95/65; PULSE 91; RESP 16; TEMP 36.9; O2SAT 99
[2022-11-30 20:34] LABS: Glucose Point of Care 214 mg/dL (70-110)
[2022-11-30] MEDS: insulin glargine 100 units/1 mL 25 UNIT SUBCUT (20:34)
[2022-12-01 05:58] LABS: Glucose Point of Care 129 mg/dL (70-110)
[2022-12-01 05:58] LABS: Glucose Point of Care 52 mg/dL (70-110)
[2022-12-01] MEDS: levothyroxine 125 mcg Tablet PO (05:59)
[2022-12-01 06:00] VITALS: BP 123/80; RESP 18; TEMP 36.5; O2SAT 100
--- NOTE | 2022-12-01 06:21 | PC.NURSE ---
0535: patient presented to nursing station requesting a snack, denied need for BS check. After 2 puddings and crackers, she asked for her BS to be checked. 0542: accucheck 52, patient given orange juice with sugar, three servings of peanut butter and a sandwich. VSS, Dr Carrasco notified and requested hospitalist be consulted. Call placed to Dr Wallace, number given for Dr Carrasco. Repeat BS at [phone]
[2022-12-01 08:05] VITALS: BP 104/68; PULSE 95; RESP 16; TEMP 36.6; O2SAT 99
[2022-12-01 08:14] LABS: Glucose Point of Care 248 mg/dL (70-110)
[2022-12-01] MEDS: insulin lispro 100 unit/1 mL SUBCUT ×2 (08:44→18:03)
[2022-12-01] MEDS: escitalopram 10 mg Tablet PO (08:44)
[2022-12-01] MEDS: insulin glargine 100 units/1 mL 25 UNIT SUBCUT (08:45)
[2022-12-01 12:19] LABS: Glucose Point of Care 59 mg/dL (70-110)
[2022-12-01 12:38] LABS: Glucose Point of Care 50 mg/dL (70-110)
--- NOTE | 2022-12-01 12:41 | PC.NURSE ---
Addendum entered by Ivonne Handley RN 12/01/22 12:49: RECHECKED AT 1248 AND WENT UP TO 60. WILL RECHECK AFTER PT EATS LUNCH. INSULIN HELD. DR. NEVAREZ NOTIFIED. Original Note: PT BLOOD SUGAR CHECKED AT 1220 BEFORE LUNCH AND CAME BACK 58. PT WAS GIVEN PEANUT BUTTER CRACKERS AND SANDWICH. AFTER 15 MINUTES IT WAS RECHECKED AND IT HAD GONE DOWN TO 50. NOTIFIED DR. NEVAREZ. PT WAS GIVEN PEANUT BUTTER CRACKERS, ORANGE JUICE WITH SUGAR AND SOME HONEY. PT REMAINED UP BY THE NURSES STATION. WILL RECHECK AGAIN IN 10 MINUTES AND NOTIFY PROVIDER.
[2022-12-01 12:52] LABS: Glucose Point of Care 60 mg/dL (70-110)
[2022-12-01 13:18] LABS: Glucose Point of Care 97 mg/dL (70-110)
--- NOTE | 2022-12-01 13:57 | W.PM.NPUPNS ---
Subjective NPU Subjective: Patient presented today continuing to be fairly isolative but reporting that she is just cold and that is why she is staying under the cover. We discussed her plan moving forward and she reports that she feels good enough to begin the discharge process and faced the challenges she has ahead of her. We were able to talk to [facility] and they are going to pick her up tomorrow and they will assist her in managing her reported 7-day [place] shock days that she must perform secondary to her dirty urine. She reports that the medication is working well. We agreed that the additional day will be helpful to secondary to her to blood sugar episodes that were low and led to a hospitalist consult. We discussed having the hospitalist make adjustments that we will be able to be managed outpatient. Mental Status Exam MSE Comments: This is a well-nourished well-developed white female in hospital scrubs with limited grooming and eye contact. No abnormal movements except for psychomotor retardation. Intermittently cooperative with exam in mild to moderate distress. Speech was limited and decreased rate and volume. Mood described as I think I am going to be ready, is okay to sleep, affect congruent and less irritable. Thought process organized. Thought content: Patient endorsed suicidal ideation but denied homicidal ideation, there were no delusions reported but she appeared to be paranoid. Guarded, she denied auditory or visual hallucinations. Attention and concentration were limited and memory was somewhat reliable but none were formally tested. She alert and oriented times person and place. Insight and judgment are limited and impulse control is impaired. Vitals/I&O/Wt Last Vital Signs Temp 97.9 F 12/01/22 08:05 Pulse 95 12/01/22 08:05 Resp 16 12/01/22 08:05 BP 104/68 12/01/22 08:05 Pulse Ox 99 12/01/22 08:05 O2 Del Method Room Air 12/01/22 10:25 Data NPU 11/26/22 16:37 11/26/22 20:42 A&P Assessment and plan (1) Depression: Qualifiers: Active/Remission status: currently active Major depression episode severity: unspecified Major depression recurrence: recurrent (2) Hypothyroidism: (3) Type 1 diabetes mellitus: (4) H/O kidney removal: (5) Methamphetamine use disorder, severe: Plan This is a 37-year-old white female with a long history of mental health and addiction issues who presents reporting ongoing depression with active addiction specifically with amphetamines who presents with suicidal ideation and reports for need to restart her medication. 1. Continue current medication. Restarted Lexapro 10 milligrams p.o. every morning. 2. Continue every 15 minute checks for safety. 3. Encourage individual, group and milieu therapy. 4. Encourage sober living treatment after discharge at the highest level care to which she is willing to commit. 5. Plan for discharge tomorrow. Involuntary Hold Information 96 Hour Hold: 96 Hour Involuntary Admission: Yes 96 Hour Hold Ending Date: 12/02/22 96 Hour Hold Ending Time: 18:29 Attestations NPU Medical Necessity Statement*: Inpatient hospitalization is medically necessary and the clinically appropriate intervention at this time. We will monitor medications and make changes as indicated. Likely length of stay 1 days. Coding Level of Care Code Acute Code for g Fwd Diagnoses Depression F32.A Active/Remission status: currently active Major depression episode severity: unspecified Major depression recurrence: recurrent Hypothyroidism E03.9 Type 1 diabetes mellitus E10.9 H/O kidney removal Z90.5 Methamphetamine use disorder, severe F15.20
[2022-12-01 14:00] VITALS: BP 96/64; PULSE 101; RESP 16; TEMP 36.2; O2SAT 100
--- NOTE | 2022-12-01 14:53 | PM.CONSULT ---
Providers/Reason For Consult Consulting Physician/Specialty*: Antonio Quiñonez MD Reason for Consult*: Diabetes, hypoglycemia Requesting Physician: Dr. Carrasco Attending Physician: Joseph Carrasco MD History of Present Illness History of Present Illness Ling Humphrey is a 37 year old female Who was admitted to the neuropsychiatric unit with methamphetamine use disorder and depression on November 26. She has type 1 diabetes which is treated with insulin. She was noted to be hypoglycemic this morning, and a consult was called to the hospitalist from Dr. Carrasco. When I visited the patient this morning she had no specific concerns, feeling better after having oral intake. She reports she has no impairments with eating at the hospital. She confirmed her home medication list. Review of Systems General: Reports: 10 or more systems reviewed and unremarkable except in HPI and below Medications/Allergies Home Medications Medication Instructions Recorded Confirmed Last Taken Type albuterol sulfate 90 mcg/actuation 2 puff inhalation Q6H PRN 07/30/20 11/26/22 Unknown Rx aerosol inhaler shortness of breath or wheezing #8.5 grams insulin aspart U-100 100 unit/mL See Rx Instructions SUBCUT TID #15 03/01/22 11/26/22 Unknown Rx (3 mL) subcutaneous pen mL levothyroxine 125 mcg capsule 125 mcg PO DAILY 05/28/22 11/26/22 Unknown History ondansetron 4 mg disintegrating 4 mg PO Q6H PRN nausea and 06/19/22 11/26/22 Unknown Rx tablet vomiting #12 tabs insulin glargine 100 unit/mL See Rx Instructions SUBCUT QDAY 07/23/22 11/26/22 Unknown History subcutaneous solution Allergies Allergy/AdvReac Type Severity Reaction Status Date / Time No Known Allergies Allergy Verified 07/23/22 13:25 Current Medications Generic Name Dose Route Start Last Admin Trade Name Freq PRN Reason Stop Dose Admin Escitalopram Oxalate 10 mg 11/28/22 15:05 12/01/22 08:44 Escitalopram 10 Mg Tablet PO 10 mg DAILY MARY Administration Insulin Glargine 25 unit 12/01/22 08:00 12/01/22 08:45 Insulin Glargine 100 Units/1 Ml SUBCUT 25 unit QAM@08 MARY Administration Insulin Human Lispro 0 unit 11/27/22 08:00 12/01/22 12:23 Insulin Lispro 100 Unit/1 Ml SUBCUT Not Given WM&BEDTIME MARY Protocol Levothyroxine Sodium 125 mcg 11/30/22 06:00 12/01/22 05:59 Levothyroxine 125 Mcg Tablet PO 125 mcg 0600 MARY Administration PFSH Acute PFSH: Medical History Hypothyroidism Psychiatric disorder Type 1 diabetes mellitus Surgical History H/O section H/O kidney removal LEFT SIDE H/O tubal ligation Social History Smoking and tobacco status: current every day smoker cigarettes Packs smoked per day: 2 Quit status (tobacco): not considering quitting Second hand smoke exposure: Yes Alcohol intake: current Alcohol intake frequency: holidays/special occasions only Substance/Drug Use: former Desire information about substance/drug rehabilitation?: No Female Reproductive History: Spontaneous abortions: No Vitals/I&O/Wt Last Vital Signs Temp 97.2 F L 12/01/22 14:00 Pulse 101 H 12/01/22 14:00 Resp 16 12/01/22 14:00 BP 96/64 12/01/22 14:00 Pulse Ox 100 12/01/22 14:00 O2 Del Method Room Air 12/01/22 14:00 Physical Exam Narrative: General exam is a white female, no distress Neck is supple Cardiovascular regular rate and rhythm Lungs clear Abdomen is soft, positive bowel sounds Extremities no cyanosis clubbing or edema Data 11/26/22 16:37 11/26/22 20:42 Other Labs: Blood sugars reviewed in detail A&P Assessment and plan (1) Hypoglycemia: Patient was hypoglycemic this morning, with blood sugar around 52. I did confirm her home medicine regimen I initially reduced her insulin to 25 units in the morning and 20 units in the evening, 10 units reduction in her overall requirement. Since then she has had a lower blood sugar around noon. I will therefore reduce her to 20 units in the morning and 15 units in the evening. Okay to continue sliding scale insulin, mild (2) Type 1 diabetes mellitus: See above Plan Thank you for this consultation, I will continue to follow along with you Consult Attestations Medical Necessity Statement: As per primary Diagnoses Hypoglycemia E16.2 Type 1 diabetes mellitus E10.9 Time Spent (min) 39
[2022-12-01 17:17] LABS: Glucose Point of Care 316 mg/dL (70-110)
[2022-12-01 19:57] LABS: Glucose Point of Care 157 mg/dL (70-110)
[2022-12-01 20:00] VITALS: BP 107/64; PULSE 88; RESP 23; TEMP 37.1; O2SAT 97
[2022-12-01] MEDS: insulin glargine 100 units/1 mL 15 UNIT SUBCUT (21:03)
[2022-12-01 22:00] VITALS: BP 107/64; PULSE 88; RESP 23; TEMP 37.1; O2SAT 97
[2022-12-02 02:56] LABS: Glucose Point of Care 100 mg/dL (70-110)
[2022-12-02 06:00] VITALS: BP 105/69; PULSE 92; RESP 14; O2SAT 99
[2022-12-02 06:01] LABS: Glucose Point of Care 97 mg/dL (70-110)
[2022-12-02] MEDS: levothyroxine 125 mcg Tablet PO (06:01)
--- NOTE | 2022-12-02 07:44 | W.PM.EVENTAC ---
Event Note Event Note: Blood sugar acceptable this morning after adjustments in insulin. If discharged, please discharge on amount of Lantus she is on now. Please call with any questions.
[2022-12-02] MEDS: escitalopram 10 mg Tablet PO (08:15)
[2022-12-02 08:37] LABS: Glucose Point of Care 112 mg/dL (70-110)
[2022-12-02 12:01] LABS: Glucose Point of Care 242 mg/dL (70-110)
[2022-12-02] MEDS: insulin lispro 100 unit/1 mL SUBCUT (12:08)
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
[2022-12-02 14:00] VITALS: BP 113/67; PULSE 97; RESP 18; TEMP 37; O2SAT 99
[2022-12-02 14:46] VITALS: BP 113/67; PULSE 97; RESP 18; TEMP 37; O2SAT 99
== END 2022-12-02 14:54 | disposition home or self-care (01) | DRG 885 ==
LOC: ER 16:31 → NP 17:15
PROVIDERS: Physician Assistant; Admitting Provider Psychiatry & Neurology Psychiatry; Emergency Provider Emergency Medicine; Visit Provider Psychiatry & Neurology Psychiatry
DX: F33.9 Major depressive disorder, recurrent, unspecified (principal); F15.20 Other stimulant dependence, uncomplicated; F17.210 Nicotine dependence, cigarettes, uncomplicated; E03.9 Hypothyroidism, unspecified; E10.649 Type 1 diabetes mellitus with hypoglycemia without coma; Z90.5 Acquired absence of kidney
CPT/HCPCS: 36415; 36416; 36600; 80048; 80053; 80306; 80307; 82803; 82962; 84703; 85025; 96372; 97165; 99238; 99285; J1815; J7030

== ENCOUNTER 2023-02-17 20:38 | Emergency (ER) | payer MEDICAID, SELFPAY ==
[2023-01-25 11:37] VITALS: BP 105/74; BMI 26.6
[2023-02-17 20:52] VITALS: PULSE 93; RESP 18; TEMP 36.9; O2SAT 99; BMI 26.4
--- NOTE | 2023-02-17 21:24 | W.ED.WEAKNES ---
HPI - Weakness General: Chief complaint: Weakness Stated complaint: abnormal labs Time Seen by Provider: 02/17/23 21:17 Source: patient Mode of arrival: ambulatory Limitations: no limitations History of Present Illness: This patient presents to our emergency department because of turns about her fluctuating blood sugars over the past several days. She states that she was at a behavioral health clinician's office today who sent her to [place] to get some laboratories to evaluate her but she went to the [facility] in [place] and then subsequently they told her to go to the emergency department at [facility] and she did not want to wait and so she returned back to this facility for evaluation. She is known diabetic for the last 6 years insulin requiring. She just had a regimen changed today and so has not instituted a new regimen. She states she has had decreased urine output today despite drinking what she thinks is a normal amount of fluids. She denies any fevers or chills nausea vomiting or diarrhea. She has had a prior right nephrectomy as well as C-sections and a tubal ligation. She smokes tobacco but does not use any street drugs and does not drink alcohol. No one else is ill at home and she has not had fevers chills etc. Associated symptoms: Denies chest pain, chills, dysuria, fever(s), headache(s), nausea, syncope or vomiting Review of Systems Const: Denies: fever(s) or chills Eyes: Denies: change in vision ENMT: Denies: throat pain, odynophagia, nasal discharge or nasal congestion Card: Denies: chest pain, syncope or pre-syncope Resp: Denies: dyspnea, productive cough or non-productive cough GI: Denies: abdominal pain, nausea, vomiting or diarrhea : Reports: oliguria; Denies: flank pain, difficulty voiding, dysuria or urinary frequency Musc: Denies: neck pain, back pain, extremity pain or extremity swelling Skin/Breast: Denies: rash or pruritus Neuro: Denies: headache(s), numbness in extremities or weakness in extremities Endo: Reports: tired all the time; Denies: polyuria or polydipsia PFS ED PFSH: Medical History Hypothyroidism Methamphetamine abuse Psychiatric care Psychiatric disorder Type 1 diabetes mellitus Surgical History H/O section H/O kidney removal LEFT SIDE H/O tubal ligation Social History Smoking and tobacco status: current every day smoker cigarettes Packs smoked per day: 1 Years cigarettes smoked: 13 Quit status (tobacco): not considering quitting Second hand smoke exposure: Yes Alcohol intake: current Alcohol intake frequency: holidays/special occasions only Substance/Drug Use: former Date of last use: 11/24/22 Desire information about substance/drug rehabilitation?: No Adopted: No Caregiver/support person: Yes (director global) Lives independently: No Household members: other Details: lives at [facility] Housing: House Marital status: Number of children: 2 Number of grandchildren: 0 Highest education level completed: High School Graduate Education level details: 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 She speaks in a goal-directed albeit rapid voice. Const: COMMON NORMALS: no acute distress, average body habitus and patient oriented x3 GENERAL APPEARANCE: cooperative and comfortable ORIENTATION/CONSCIOUSNESS: Yes awake HENMT: COMMON NORMALS: normocephalic, Normal nasal mucous membranes and turbinates present, moist oral mucous membranes and oropharynx normal HEAD & SCALP: normocephalic FACE & SINUS: normal facial exam NOSE: Normal nasal mucous membranes and turbinates present Eye: COMMON NORMALS: Equal, round and reactive pupils present, EOMs intact bilaterally and conjunctivae normal CONJUNCTIVA: Yes conjunctivae normal PUPIL: Yes Equal, round and reactive pupils present Neck/C-Spine: COMMON NORMALS: full ROM, no lymphadenopathy and no meningeal signs Chest: COMMONS NORMALS: normal inspection of the chest Resp: COMMON NORMALS: normal respiratory effort, No retractions, No use of accessory muscles and clear to auscultation bilaterally EFFORT & INSPECTION: Yes able to speak in complete sentences AUSCULTATION: clear to auscultation bilaterally Cardio: COMMON NORMALS: regular rate, regular rhythm, No murmurs present (Cardio) and Peripheral pulses 2+ throughout RATE: regular rate RHYTHM: regular rhythm PERIPHERAL PULSES: Peripheral pulses 2+ throughout GI: COMMON NORMALS: Normal to inspection, nondistended, normoactive bowel sounds present, Soft to palpation and non-tender PALPATION: Yes Soft to palpation : COMMON NORMALS: Yes no CVA tenderness BLADDER/KIDNEY EXAM: Yes no CVA tenderness Back/Pelvis: COMMON NORMALS: no CVA tenderness, thoracic and lumbar spine normal to inspection, no thoracic nor lumbar tenderness and thoraco-lumbar ROM normal Extremity: COMMON NORMALS: normal to inspection, full ROM, capillary refill normal, no calf tenderness and no pedal edema Neuro: COMMON NORMALS: patient oriented x3, moves all extremities, no focal motor deficits and no sensory deficits noted MENINGEAL SIGNS: Yes no meningeal signs CRANIAL NERVES: Yes CN normal except as noted Psych: COMMON NORMALS: mental status grossly normal Skin: COMMON NORMALS: no rashes or lesions noted, no wounds, turgor normal and no jaundice GENERAL SKIN EXAM: no rashes or lesions noted and turgor normal Course Reevaluation(s): Reevaluation #1: The patient is receiving IV fluids. He remains clinically stable. We reviewed her laboratory findings with her. She is ketone negative and has normal CO2. She does have increased osmolality but this will respond to IV fluids. We will give her an additional short acting acting insulin in the emergency department and plan on discharging her to home so that she can continue to manage her diabetes with her combination of long-acting insulin with her sliding scale. She voiced understanding of our discussion and was agreeable to the plan. Time: 22:24 Vital Signs: Vital signs: Vital Signs Temperature 98.4 F 02/17/23 20:52 Pulse Rate 93 02/17/23 20:52 Respiratory Rate 18 02/17/23 20:52 Pulse Oximetry 99 02/17/23 20:52 Oxygen Delivery Me thod Room Air 02/17/23 20:52 MDM - Weakness Medical Decision Making This patient came to the emergency department for screening laboratories that were requested by her treating clinician. She had initially went to [place] to get the laboratories done but did not want to wait at [facility] which was extremely busy. She then made her way to our emergency department. She is had her insulin regimen just changed today because she has been very brittle. She has not had any issues that suggest infection such as fever chills dysuria nausea vomiting diarrhea etc. Her clinical examination is reassuring. She was alert without any focal findings. Laboratories were obtained to include ketones comprehensive metabolic profile CBC as well as urinalysis. Ketones were negative both in urine and blood and her CO2 is reassuring. She did have elevation in her serum osmolality distant with some volume depletion looking at her BUN but she does have preserved renal function. Plan will be to rehydrate her in the emergency department give her an additional shorting acting insulin to cover her and then discharge her to home care. She has a glucometer and insulin sliding scale etc. as needed to provide treatment. There is no evidence at this time clinically to suggest infection or other perturbation or ongoing emergency medical condition. Medical Records I reviewed the patient's medical records. Preserved renal function noted previously Lab Data I reviewed the patient's lab results. 02/17/23 21:02/17/23: Laboratory Results WBC 8.28 10^3/uL (3.29-11.43) 02/17/23 21: RBC 4.51 10^6/uL (3.85-5.65) 02/17/23: Hgb 13.30 g/dL (11.27-16.99) 02/17/23 21: Hct 40.7 % (36-47) 02/17/23: MCV 90.2 fl (85-98) 02/17/23: MCH 29.5 pg (27-33) 02/17/23 21: MCHC 32.7 g/dL (30-55) 02/17/23: RDW 13.3 % (12.1-15.1) 02/17/23: Plt Count 339 10^3/cmm (157-399) 02/17/23: MPV 10.2 fL (7.4-10.4) 02/17/23 21: Neut % (Auto) 50.0 % 02/17/23: Lymph % (Auto) 34.5 % 02/17/23: Grayson % (Auto) 7.7 % 02/17/23: Eos % (Auto) 6.5 % 02/17/23 21: Baso % (Auto) 1.1 % 02/17/23 21: Neut # (Auto) 4.13 10^3/uL (1.8-7.7) 02/17/23: Lymph # (Auto) 2.9 10^3/uL (0.8-4.8) 02/17/23: Grayson # (Auto) 0.6 10^3/uL (0.2-0.9) 02/17/23: Eos # (Auto) 0.5 10^3/uL (0.0-0.8) 02/17/23: Baso # (Auto) 0.1 10^3/uL (0.0-0.1) 02/17/23: Nucleated RBC % (auto) 0 % 02/17/23: Nucleated RBCs # 0.0 /100WBC 02/17/23 21: Sodium 134 mmol/L (136-145) L 02/17/23 21: Potassium 4.9 mmol/L (3.5-5.1) 02/17/23: Chloride 98 mmol/L (98-107) 02/17/23: Carbon Dioxide 26 mmol/L (22-29) 02/17/23: Anion Gap 14.9 (5-19) 02/17/23: BUN 25 mg/dL (6-20) H 02/17/23: Creatinine 0.8 mg/dL (0.5-0.9) 02/17/23: GFR Calculation 80.7 mL/min (90-130) L 02/17/23 21: Glucose 408 mg/dL (65-115) H 02/17/23: Calculated Osmolality 300 mOsm/kg (285-295) H 02/17/23: Calcium 9.8 mg/dL (8.5-10.5) 02/17/23: Total Bilirubin 0.2 mg/dL (0.15-1.2) 02/17/23: AST 15 U/L (0-32) 02/17/23: ALT 13 U/L (0-33) 02/17/23 21:27 Alkaline Phosphatase 70 U/L (35-105) 02/17/23 21:27 Total Protein 8.0 g/dL (6.6-8.7) 02/17/23 21: Albumin 4.7 g/dL (3.5-5.2) 02/17/23 21: Globulin 3.3 g/dL (1.3-4.6) 02/17/23 21:27 HCG, Qual Negative (Negative) 02/17/23 21:13 Urine Color Light yellow (Yellow) 02/17/23 21:13 Urine Appearance Sl hazy (CLEAR) A 02/17/23 21:13 Urine pH 5 (5-7) 02/17/23 21:13 Ur Specific Liberty 1.010 (1.005-1.030) 02/17/23 21:13 Urine Protein Neg (Negative) 02/17/23 21:13 Urine Glucose (UA) 4+ (Normal) H 02/17/23 21:13 Urine Ketones Negative (Negative) 02/17/23 21:13 Urine Blood Neg (Negative) 02/17/23 21:13 Urine Nitrate Negative (Negative) 02/17/23 21:13 Urine Bilirubin Neg (Negative) 02/17/23 21:13 Urine Urobilinogen Neg mg/dL (Negative) 02/17/23 21:13 Ur Leukocyte Esterase Negative (Negative) 02/17/23 21:13 Urine RBC None /hpf (0-2) 02/17/23 21:13 Urine WBC None /hpf (0-5) 02/17/23 21:13 Ur Squamous Epith Cells 5-10 /hpf (0-5) H 02/17/23 21:13 Amorphous Sediment 2+ /hpf 02/17/23 21:13 Urine Bacteria 1+ /hpf (NONE) H 02/17/23 21:13 Serum Ketones Negative (Negative) 02/17/23 21:27 Discharge Plan Discharge Patient Disposition: Home Clinical Impression: Dehydration, Type 1 diabetes mellitus, Elevated blood sugar Condition: Stable Prescriptions: No Action insulin glargine 100 unit/mL Solution 20 unit SUBCUT QAM@08 Qty: 5 0RF insulin glargine 100 unit/mL Solution 15 unit SUBCUT BEDTIME Qty: 5 0RF albuterol sulfate 90 mcg/actuation HFA aerosol inhaler 2 puff INHALATION Q6H PRN (Reason: shortness of breath or wheezing) Qty: 8.5 0RF ondansetron 4 mg tablet,disintegrating 4 mg PO Q6H PRN (Reason: nausea and vomiting) Qty: 12 0RF Rx Instructions: 340b please insulin aspart U-100 100 unit/mL (3 mL) insulin pen See Rx Instructions SUBCUT TID Qty: 15 3RF Rx Instructions: S/S PLUS 1UNIT FOR EVERY 6G OF CARBS SUBCUT three times daily; levothyroxine 125 mcg capsule 125 mcg PO DAILY Qty: 30 0RF Discharge Orders: Discharge ED (Routine); Ordered 02/17/23 Ordered By: Keyur Fuentes Referrals: Shanti Lee DO [Primary Care Provider] - 1 week Discharge Diet: Diabetic Discharge Activity: Increase activity as tolerated Patient Instructions: Opioid Safety, Pain Management Activity Restrictions/Additional Instructions: Continue to monitor your blood sugars 4 times daily until you chief control and return to a normal blood sugar for you. Use the new insulin dosing and sliding scale as prescribed by your clinician.. Drinking at least 2 quarts of water daily in addition to your usual fluid intake as well as your usual diabetic diet. If it anytime you develop fevers chills inability to tolerate oral intake persistent blood sugars over 500 or any other concerns return to this or the nearest emergency department Coding Level of Care Code ED Analytical Lab Analyst for 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
[2023-02-17 21:33] LABS: Basophils # 0.1 10^3/uL (0.0-0.1); Basophils % 1.1 %; Eosinophils # 0.5 10^3/uL (0.0-0.8); Eosinophils % 6.5 %; Hematocrit 40.7 % (36-47); Lymphocytes # 2.9 10^3/uL (0.8-4.8); Lymphocytes % 34.5 %; Mean Corpuscular HGB Conc 32.7 g/dL (30-55); Mean Corpuscular Hemoglobin 29.5 pg (27-33); Mean Corpuscular Volume 90.2 fl (85-98); Mean Platelet Volume 10.2 fL (7.4-10.4); Monocytes # 0.6 10^3/uL (0.2-0.9); Monocytes % 7.7 %; Neutrophils # 4.13 10^3/uL (1.8-7.7); Nucleated Red Blood Cells % 0 %; Platelet Count 339 10^3/cmm (157-399); Red Blood Count 4.51 10^6/uL (3.85-5.65); Red Cell Distribution Width 13.3 % (12.1-15.1); White Blood Count 8.28 10^3/uL (3.29-11.43)
[2023-02-17 21:41] LABS: HCG Qualitative Urine. Negative (Negative)
[2023-02-17 21:45] LABS: Add Urine Culture? No; Add Urine Microscopic? YES; Amorphous Sediment Urine 2+ /hpf; Bacteria Urine 1+ /hpf; Bilirubin Urine Neg (Negative); Blood Urine Neg (Negative); Glucose Urine UA 4+ (Normal); Ketones Urine Negative (Negative); Leukocyte Esterase Urine Negative (Negative); Nitrate Urine Negative (Negative); Protein Urine Neg (Negative); Urine Appearance SL Hazy (CLEAR); Urine Color Light yellow (Yellow); Urobilinogen Urine Neg (Negative); pH Urine 5 (5-7)
[2023-02-17 21:46] LABS: Ketone (Acetest) Serum Negative (Negative)
[2023-02-17 21:50] LABS: Alanine Aminotransferase 13 U/L (0-33); Albumin Level 4.7 g/dL (3.5-5.2); Alkaline Phosphatase 70 U/L (35-105); Anion Gap 14.9 (5-19); Aspartate Amino Transferase 15 U/L (0-32); Blood Urea Nitrogen 25 mg/dL (6-20); Calcium 9.8 mg/dL (8.5-10.5); Carbon Dioxide 26 mmol/L (22-29); Chloride 98 mmol/L (98-107); Globulin 3.3 g/dL (1.3-4.6); Glomerular Filtration Rate 80.7 mL/min (90-130); Glucose 408 mg/dL (65-115); Osmolality Calculated 300 mOsm/kg (285-295); Potassium 4.9 mmol/L (3.5-5.1); Sodium 134 mmol/L (136-145); Total Bilirubin 0.2 mg/dL (0.15-1.2)
[2023-02-17] MEDS: sodium chloride 0.9% 1,000 ML 999 ML IV (21:50)
[2023-02-17 22:00] VITALS: BP 98/56; PULSE 89; RESP 16; O2SAT 96
[2023-02-17] MEDS: insulin lispro 100 unit/1 mL 10 UNIT SUBCUT (22:31)
[2023-02-17 23:08] LABS: Glucose Point of Care 327 mg/dL (70-110)
[2023-02-17 23:17] VITALS: BP 95/55; PULSE 87; RESP 16; O2SAT 98
== END 2023-02-17 23:26 | disposition home or self-care (01) ==
PROVIDERS: Emergency Provider Emergency Medicine; PCP Family Medicine
DX: E10.65 Type 1 diabetes mellitus with hyperglycemia (principal); E86.0 Dehydration; Z79.4 Long term (current) use of insulin; F17.210 Nicotine dependence, cigarettes, uncomplicated
CPT/HCPCS: 36416; 80053; 81001; 81025; 82009; 82962; 85025; 96360; 96372; 99284; J1815; J7030

== ENCOUNTER 2023-03-29 15:55 | Inpatient (IN) | payer MEDICAID, SELFPAY ==
[2023-01-25 11:37] VITALS: BP 105/74; BMI 26.6
[2023-03-29] VITALS (13 sets, daily range): BP systolic 84–123; BP diastolic 62–87; PULSE 80–106; RESP 15–20; TEMP 36.4; O2SAT 97–100; BMI 26.2
--- NOTE | 2023-03-29 15:57 | ECG_ITS ---
[facility] Test Date: 2023-03-29 Pat Name: Ling Humphrey Department: Room: Gender: Female Director Of Business Services: : 1985 Requested By: Candido Hein Order Number: [id number] Collette MD: Zahra Edwards M.D. Measurements Intervals [place] Rate: 92 P: 66 OH: 149 QRS: 58 QRSD: 65 T: 59 QT: 347 QTc: 431 Interpretive Statements SINUS RHYTHM LOW QRS VOLTAGE IN PRECORDIAL LEADS [QRS DEFLECTION < 1.0 mV IN CHEST LEADS] Compared to ECG 03/01/2022 13:11:22 Sinus tachycardia no longer present Electronically Signed On 03-29-2023 17:44:34 CDT by Zahra Edwards M.D. [id number]
[2023-03-29 16:18] LABS: Basophils # 0.1 10^3/uL (0.0-0.1); Basophils % 0.9 %; Eosinophils # 0.2 10^3/uL (0.0-0.8); Eosinophils % 1.7 %; Hematocrit 47.4 % (36-47); Lymphocytes % 23.2 %; Mean Corpuscular HGB Conc 33.1 g/dL (30-55); Mean Corpuscular Hemoglobin 29.7 pg (27-33); Mean Corpuscular Volume 89.8 fl (85-98); Mean Platelet Volume 10.6 fL (7.4-10.4); Monocytes # 0.5 10^3/uL (0.2-0.9); Monocytes % 5.4 %; Neutrophils # 5.97 10^3/uL (1.8-7.7); Neutrophils % 68.6 %; Nucleated Red Blood Cells % 0 %; Platelet Count 375 10^3/cmm (157-399); Red Blood Count 5.28 10^6/uL (3.85-5.65); Red Cell Distribution Width 12.5 % (12.1-15.1); White Blood Count 8.71 10^3/uL (3.29-11.43)
--- NOTE | 2023-03-29 16:34 | ED_ITS ---
HPI - Nausea/Vomiting/Diarrhea General: Chief complaint: Nausea/Vomiting/Diarrhea Stated complaint: high glucose, n,v Time Seen by Provider: 03/29/23 15:57 Source: patient Mode of arrival: EMS History of Present Illness: 37-year-old female presents emergency room complaint nausea vomiting diarrhea and hyperglycemia. Patient is a insulin-dependent diabetic and has a history of methamphetamine addiction. She used methamphetamines over the weekend and since then has had elevated blood sugars with nausea vomiting and some diarrhea. She has been taking her insulin for the last 2 weeks either. No fevers sweats or chills. No hematochezia melena hematemesis cough nemesis dysuria urgency or frequency or hematuria. MD elicited complaint: nausea, vomiting and diarrhea PFS ED PFSH: Medical History Hypothyroidism Methamphetamine abuse Psychiatric care Psychiatric disorder Type 1 diabetes mellitus Surgical History H/O section H/O kidney removal LEFT SIDE H/O tubal ligation Social History Smoking and tobacco/nicotine status: current every day tobacco/nicotine user cigarettes Packs smoked per day: 1 Years cigarettes smoked: 13 Quit status (tobacco/nicotine): not considering quitting Second hand smoke exposure: Yes Alcohol intake: current Alcohol intake frequency: holidays/special occasions only Substance/Drug Use: former Date of last use: 11/24/22 Adopted: No Caregiver/support person: Yes (program services assistant) Lives independently: No Household members: other Details: lives at [facility] house Housing: House Marital status: Number of children: 2 Number of grandchildren: 0 Highest education level completed: High School Graduate Education level details: Has [employer], [place] Development service: No Current occupational status: unemployed Current occupational exposures/hazards: No Pets and animals: No Leisure activites: volunteer work Sexually active: No Do you think of yourself as: Straight/Heterosexual Current gender identity: Female Flavia/Restoration: Orthodoxy Special flavia needs: No Female Reproductive History: Date of last menstrual period: 03/28/23 Para: 2 Spontaneous abortions: No Course Vital Signs: Vital signs: Vital Signs Temperature 97.5 F L 03/29/23 16:01 Pulse Rate 106 H 03/29/23 16:01 Respiratory Rate 20 H 03/29/23 16:01 Blood Pressure 123/87 03/29/23 16:01 Pulse Oximetry 97 03/29/23 16:01 MDM - Nausea/Vomiting/Diarrhea Medical Decision Making DKA secondary to noncompliance exacerbated by methamphetamine use. Labs reviewed discussed with hospitalist all discussed with patient fluids given. Patient admitted to the ICU orders written Medical Records I reviewed the patient's medical records. Lab Data I reviewed the patient's lab results. 03/29/23 16:12 03/29/23 16:12 Radiology Impressions Chest X-Ray 03/29/23 16:40 IMPRESSION: No acute findings. Laboratory Results WBC 8.71 10^3/uL (3.29-11.43) 03/29/23 16:12 RBC 5.28 10^6/uL (3.85-5.65) 03/29/23 16:12 Hgb 15.70 g/dL (11.27-16.99) 03/29/23 16:12 Hct 47.4 % (36-47) H 03/29/23 16:12 MCV 89.8 fl (85-98) 03/29/23 16:12 MCH 29.7 pg (27-33) 03/29/23 16:12 MCHC 33.1 g/dL (30-55) 03/29/23 16:12 RDW 12.5 % (12.1-15.1) 03/29/23 16:12 Plt Count 375 10^3/cmm (157-399) 03/29/23 16:12 MPV 10.6 fL (7.4-10.4) H 03/29/23 16:12 Neut % (Auto) 68.6 % 03/29/23 16:12 Lymph % (Auto) 23.2 % 03/29/23 16:12 [place] % (Auto) 5.4 % 03/29/23 16:12 Eos % (Auto) 1.7 % 03/29/23 16:12 Baso % (Auto) 0.9 % 03/29/23 16:12 Neut # (Auto) 5.97 10^3/uL (1.8-7.7) 03/29/23 16:12 Lymph # (Auto) 2.0 10^3/uL (0.8-4.8) 03/29/23 16:12 [place] # (Auto) 0.5 10^3/uL (0.2-0.9) 03/29/23 16:12 Eos # (Auto) 0.2 10^3/uL (0.0-0.8) 03/29/23 16:12 Baso # (Auto) 0.1 10^3/uL (0.0-0.1) 03/29/23 16:12 Nucleated RBC % (auto) 0 % 03/29/23 16:12 Nucleated RBCs # 0.0 /100WBC 03/29/23 16:12 Specimen Type Arterial 03/29/23 16:24 Sample Site Brachial, left 03/29/23 16:24 ABG pH 7.27 (7.35-7.45) L 03/29/23 16:24 ABG pO2 117.0 mmHg (80.0-100.0) H 03/29/23 16:24 ABG HCO3 8.5 mmol/L (22-26) L 03/29/23 16:24 ABG O2 Saturation 99.2 03/29/23 16:24 ABG Base Excess -15.8 mmol/L (-2.0-2.0) L 03/29/23 16:24 Cale Test Neg 03/29/23 16:24 A-a O2 Gradient 0.9 mmHg (5-10) L 03/29/23 16:24 Hematocrit 46.7 % (37-47) 03/29/23 16:24 Hgb O2 Saturation 96.4 % (95-100) 03/29/23 16:24 Carboxyhemoglobin 1.8 %THgb (0.4-20.1) 03/29/23 16:24 Methemoglobin 1.0 % (0.4-1.5) 03/29/23 16:24 Total Hemoglobin 15.2 g/dL (12-16) 03/29/23 16:24 Sodium 129.0 mmol/L (131-143) L 03/29/23 16:24 Potassium 4.8 mmol/L (3.5-5.0) 03/29/23 16:24 Glucose 647.0 mg/dL (70-115) H 03/29/23 16:24 Ionized Calcium 1.2 mmol/L (1.1-1.4) 03/29/23 16:24 O2 Delivery Device Room air 03/29/23 16:24 Mangle Tender ID [place] 03/29/23 16:24 Sodium 126 mmol/L (136-145) L 03/29/23 16:12 Potassium 4.7 mmol/L (3.5-5.1) 03/29/23 16:12 Chloride 88 mmol/L (98-107) L 03/29/23 16:12 Carbon Dioxide 12 mmol/L (22-29) L 03/29/23 16:12 Anion Gap 30.7 (5-19) H 03/29/23 16:12 BUN 18 mg/dL (6-20) 03/29/23 16:12 Creatinine 1.3 mg/dL (0.5-0.9) H 03/29/23 16:12 GFR Calculation 46.1 mL/min (90-130) L 03/29/23 16:12 Glucose 619 mg/dL (65-115) H* 03/29/23 16:12 Calculated Osmolality 293 mOsm/kg (285-295) 03/29/23 16:12 Calcium 8.9 mg/dL (8.5-10.5) 03/29/23 16:12 Total Bilirubin 0.4 mg/dL (0.15-1.2) 03/29/23 16:12 AST 13 U/L (0-32) 03/29/23 16:12 ALT 12 U/L (0-33) 03/29/23 16:12 Alkaline Phosphatase 78 U/L (35-105) 03/29/23 16:12 Total Protein 8.5 g/dL (6.6-8.7) 03/29/23 16:12 Albumin 4.6 g/dL (3.5-5.2) 03/29/23 16:12 Globulin 3.9 g/dL (1.3-4.6) 03/29/23 16:12 Serum Ketones Positive (Negative) H 03/29/23 16:12 All radiology interpretation(s) finalized by discharge Discharge Plan Discharge Patient Disposition: Admitted As Inpatient Admit Provider: Josemanuel Cortez Clinical Impression: DKA (diabetic ketoacidosis), Methamphetamine use disorder, severe Condition: Stable Coding Level of Care Code ED Bead Wrapper for Chg Fwd
[2023-03-29 16:36] LABS: ABG PH Result 7.27 (7.35-7.45); Alveolar-Arterial Oxygen Gradi 0.9 mmHg (5-10); Arterial Blood Gas Hematocrit 46.7 % (37-47); Base Excess ABG -15.8 mmol/L (-2.0-2.0); Blood Gas Allen Test Neg; Blood Gas Sample Site Brachial, left; Blood Gas Sample Type Arterial; Carboxyhemoglobin 1.8 %THgb (0.4-20.1); HCO3 ABG 8.5 mmol/L (22-26); HGB O2 Sat 96.4 % (95-100); Ionized Calcium Level - ABG 1.2 mmol/L (1.1-1.4); Oxygen Device ROOM AIR; Oxygen Saturation ABG 99.2; Potassium Level - ABG 4.8 mmol/L (3.5-5.0); Total Hemoglobin 15.2 g/dL (12-16)
--- NOTE | 2023-03-29 16:40 | XRR_ITS ---
PROCEDURE INFORMATION: Exam: XR Chest Exam date and time: 03/29/2023 5:05 PM Age: 37 years old Clinical indication: Other: Dka; Additional info: Dyspnea/cough TECHNIQUE: Imaging protocol: Radiologic exam of the chest. Views: 1 view. COMPARISON: CR XR chest 2V* [id number] 07/05/2019 2:41 PM FINDINGS: Lungs: Unremarkable. No consolidation. Pleural spaces: Unremarkable. No pleural effusion. No pneumothorax. Heart/Mediastinum: Unremarkable. No cardiomegaly. Bones/joints: Unremarkable. XR/XR chest 1V portable [id number] IMPRESSION: No acute findings.
[2023-03-29 16:42] LABS: Alanine Aminotransferase 12 U/L (0-33); Albumin Level 4.6 g/dL (3.5-5.2); Alkaline Phosphatase 78 U/L (35-105); Anion Gap 30.7 (5-19); Aspartate Amino Transferase 13 U/L (0-32); Blood Urea Nitrogen 18 mg/dL (6-20); Calcium 8.9 mg/dL (8.5-10.5); Carbon Dioxide 12 mmol/L (22-29); Chloride 88 mmol/L (98-107); Globulin 3.9 g/dL (1.3-4.6); Glomerular Filtration Rate 46.1 mL/min (90-130); Osmolality Calculated 293 mOsm/kg (285-295); Potassium 4.7 mmol/L (3.5-5.1); Sodium 126 mmol/L (136-145); Total Bilirubin 0.4 mg/dL (0.15-1.2); Total Protein 8.5 g/dL (6.6-8.7)
[2023-03-29 16:57] LABS: Glucose 619 mg/dL (65-115); Ketone (Acetest) Serum Positive (Negative)
[2023-03-29] MEDS: ondansetron 2 mg/ML SDV 2 mL 4 MG IVP (17:10)
[2023-03-29] MEDS: sodium chloride 0.9% 1,000 ML 999 ML IV (17:22)
[2023-03-29] MEDS: insulin regular-human 100 units/1 mL 15 UNIT IVP (17:23)
--- NOTE | 2023-03-29 17:48 | P.HP_ITS ---
Providers/Chief Complaint Admitting Physician: Josemanuel Cortez MD Primary Care Provider: Shanti Lee DO Chief Complaint: high glucose, n,v History of Present Illness Ling Humphrey is a 37 year old female with a past medical history of type 1 diabetes mellitus, who presents to [facility] due to nausea, vomiting, diarrhea for the last 2 weeks. Patient tells me that for the last 2 weeks, she had nausea vomiting and diarrhea, no abdominal pain, no recent blanca el, no sick contacts, she denies being , she has had bilateral tubal ligation, denies any fevers, no chills, no exposure to COVID-19 or exposure to the flu, she has not taken her insulin or any of her medications for the last 2 weeks, denies any chest pain, no palpitations, no cough, no back pain, she does admit that she relapsed on her drug use, she has used methamphetamine about a week ago and she orally consumed it, denies IV use of the drug Review of Systems Eyes: Denies: change in vision Card: Denies: chest pain Resp: Denies: dyspnea GI: Reports: nausea and vomiting; Denies: abdominal pain : Denies: flank pain Musc: Denies: neck pain Skin/Breast: Denies: rash Neuro: Denies: headache(s) Psych: Denies: anxiety Medications/Allergies Home Medications Medication Instructions Recorded Confirmed Last Taken Type albuterol sulfate 90 mcg/actuation 2 puff inhalation Q6H PRN 12/02/22 Unknown Rx aerosol inhaler shortness of breath or wheezing #8.5 grams insulin aspart U-100 100 unit/mL See Rx Instructions SUBCUT TID #15 12/02/22 01/13/23 Unknown Rx (3 mL) subcutaneous pen mL insulin glargine 100 unit/mL 15 unit (0.15 mL) SUBCUT BEDTIME 12/02/22 Unknown Rx subcutaneous solution #5 mL insulin glargine 100 unit/mL 20 unit (0.2 mL) SUBCUT QAM@08 #5 12/02/22 Unknown Rx subcutaneous solution mL levothyroxine 125 mcg capsule 125 mcg PO DAILY #30 caps 12/02/22 01/13/23 Unknown Rx ondansetron 4 mg disintegrating 4 mg PO Q6H PRN nausea and 12/02/22 01/13/23 Unknown Rx tablet vomiting #12 tabs Allergies Allergy/AdvReac Type Severity Reaction Status Date / Time No Known Allergies Allergy Verified 03/29/23 16:10 PFSH Acute PFSH: Medical History Hypothyroidism Methamphetamine abuse Psychiatric care Psychiatric disorder Type 1 diabetes mellitus Surgical History H/O section H/O kidney removal LEFT SIDE H/O tubal ligation Family History (Updated 03/29/23 @ 17:55 by Josemanuel Cortez MD) Father Lung cancer Social History Smoking and tobacco/nicotine status: current every day tobacco/nicotine user cigarettes Packs smoked per day: 1 Years cigarettes smoked: 13 Quit status (tobacco/nicotine): not considering quitting Second hand smoke exposure: Yes Alcohol intake: current Alcohol intake frequency: holidays/special occasions only Substance/Drug Use: former Date of last use: 11/24/22 Adopted: No 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) Lives independently: No Household members: other Details: lives at [facility] house Housing: House Marital status: Number of children: 2 Number of grandchildren: 0 Highest education level completed: High School Graduate Education level details: 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, [employer] Mobile service: No Current occupational status: unemployed Current occupational exposures/hazards: No Pets and animals: No Leisure activites: volunteer work Sexually active: No Do you think of yourself as: Straight/Heterosexual Current gender identity: Female Flavia/Scientologist: Zoroastrian Special flavia needs: No Female Reproductive History: Date of last menstrual period: 03/28/23 Para: 2 Spontaneous abortions: No Vitals/I&O/Wt Last Vital Signs Temp 97.5 F L 03/29/23 16:01 Pulse 106 H 03/29/23 16:01 Resp 20 H 03/29/23 16:01 BP 123/87 03/29/23 16:01 Pulse Ox 97 03/29/23 16:01 Weight last 48 hrs Weight 69.4 kg Physical Exam Const: COMMON NORMALS: no acute distress and patient oriented x3 HENMT: COMMON NORMALS: normocephalic HEAD & SCALP: normocephalic Eye: COMMON NORMALS: Equal, round and reactive pupils present and EOMs intact bilaterally Neck/C-Spine: COMMON NORMALS: full ROM and no lymphadenopathy Lymph: LYMPHATIC: no lymphadenopathy noted Chest: COMMONS NORMALS: normal inspection of the chest Resp: COMMON NORMALS: normal respiratory effort, No retractions, No use of accessory muscles and clear to auscultation bilaterally AUSCULTATION: clear to auscultation bilaterally Cardio: COMMON NORMALS: regular rate, regular rhythm, S1 normal heart sound present and S2 normal heart sound present GI: COMMON NORMALS: Normal to inspection, nondistended, normoactive bowel sounds present, Soft to palpation and non-tender : COMMON NORMALS: Yes no CVA tenderness Extremity: COMMON NORMALS: no pedal edema Neuro: COMMON NORMALS: patient oriented x3, CN's II-XII intact bilaterally, moves all extremities and no focal motor deficits Psych: COMMON NORMALS: mental status grossly normal Data 03/29/23 16:12 03/29/23 16:12 A&P Assessment and plan (1) DKA (diabetic ketoacidosis): (2) Methamphetamine use disorder, severe: (3) Type 1 diabetes mellitus: (4) H/O kidney removal: Plan Diabetic ketoacidosis -Anion gap 30.7, blood sugar of 619, bicarb 12, pH 7.27, ketone positive -Admit to ICU -DKA protocol -Monitor BMP, mag, Phos every 4 hours -Keep n.p.o. -Normal saline with potassium replacement 125 cc an hour -Monitor serial blood sugar every hour -Once blood sugar drops below 200, switch to D5 1/2 normal saline -Switch to subcu and long-acting insulin once anion gap closes -CODE STATUS, confirmed with patient that she is a DNR/DNI -Lovenox for DVT prophylaxis Acute kidney injury, IV fluids History of hypothyroidism, check TSH, has not taken medication in over 2 weeks Reported drug use, check urine toxicology screen, blood alcohol level, lipase Nausea, vomiting, diarrhea, stool studies, UA, lipase, pain control, nausea control Attestations Medical Necessity Statement*: Patient requires hospitalization, patient, creatinine 2 midnights, for diabetic ketoacidosis Diagnoses DKA (diabetic ketoacidosis) E11.10 Methamphetamine use disorder, severe F15.20 Type 1 diabetes mellitus E10.9 H/O kidney removal Z90.5
--- NOTE | 2023-03-29 18:15 | PC.NURSE ---
Pt arrived to ICU from ED. During admission pt question about what brought her here. She stated she hasn't been taking her insulin,it makes her sick. She continued that she will not take it either until she gets an insulin pump.
[2023-03-29] MEDS: enoxaparin 40 mg/0.4 mL Syringe SUBCUT (18:30)
[2023-03-29] MEDS: pantoprazole 40 mg SDV IVP (18:30)
[2023-03-29] MEDS: sodium chlor 0.9% + KCl 20 mEq 20 MEQ/1,000 ML BAG 100 MEQ IV (18:31)
[2023-03-29] MEDS: insulin regular-human 250 UNIT in sodium chloride 0.9% 250 ML 6.57 UNIT IV (18:56)
[2023-03-29 19:27] LABS: Glucose Point of Care 380 mg/dL (70-110)
[2023-03-29 19:28] LABS: Lactic Sepsis W/Reflex 2.3 mmol/L (0.5-2.2)
[2023-03-29 19:30] LABS: Troponin(5th) Baseline < 6 ng/L (0-10)
[2023-03-29 19:40] LABS: Blood Urea Nitrogen 17 mg/dL (6-20); C Reactive Protein 6.9 mg/L (0.0-4.9); Calcium 8.2 mg/dL (8.5-10.5); Carbon Dioxide 14 mmol/L (22-29); Chloride 97 mmol/L (98-107); Glomerular Filtration Rate 50.6 mL/min (90-130); Glucose 379 mg/dL (65-115); Lipase 15 U/L (13-60); Magnesium 1.7 mg/dL (1.7-2.3); Osmolality Calculated 291 mOsm/kg (285-295); Phosphorus 2.4 mg/dL (2.5-4.5); Sodium 132 mmol/L (136-145); Thyroid Stimulating Hormone 24.65 uIU/mL (0.27-4.20)
[2023-03-29] MEDS: morphine 4 mg/mL SDV 1 mL 2 MG IVP ×2 (19:42→23:24)
[2023-03-29 19:43] LABS: Estmated Average Glucose 272; Hemoglobin A1C 11.1 % (4.0-6.0)
[2023-03-29 19:52] LABS: Alcohol Level < 10 mg/dL (0-10); Anion Gap 24.8 (5-19); Potassium 3.8 mmol/L (3.5-5.1)
[2023-03-29 20:11] LABS: Glucose Point of Care 301 mg/dL (70-110)
[2023-03-29 20:14] LABS: Procalcitonin 0.04 ng/mL (0-0.5)
[2023-03-29 20:35] LABS: Reflex Lactate Order REFLEX LACTIC ORDERD
[2023-03-29 20:51] LABS: Amphetamines Screen Urine Negative (Negative); Barbiturates Screen Urine Negative (Negative); Benzodiazepines Screen Urine Negative (Negative); Cocaine Screen Urine Negative (Negative); Opiate Screen Urine Negative (Negative); PCP Screen Urine Negative (Negative); THC Screen Urine Negative (Negative)
[2023-03-29 20:52] LABS: Add Urine Culture? No; Add Urine Microscopic? YES; Bacteria Urine TRACE /hpf; Bilirubin Urine Neg (Negative); Blood Urine 2+ (Negative); Glucose Urine UA 4+ (Normal); Ketones Urine 3+ (Negative); Leukocyte Esterase Urine Negative (Negative); Nitrate Urine Negative (Negative); Protein Urine Neg (Negative); RBC Urine 0-4 /hpf (0-2); Urine Appearance Clear (CLEAR); Urine Color Yellow (Yellow); Urobilinogen Urine Neg (Negative); pH Urine 5 (5-7)
[2023-03-29 21:02] LABS: Glucose Point of Care 240 mg/dL (70-110)
[2023-03-29 21:43] LABS: Troponin 5 2HR Delta 0.00001 ABS# (0-10)
[2023-03-29 22:01] LABS: Glucose Point of Care 257 mg/dL (70-110)
--- NOTE | 2023-03-29 22:11 | XRR_ITS ---
PROCEDURE INFORMATION: Exam: XR Chest Exam date and time: 03/29/2023 10:18 PM Age: 37 years old Clinical indication: Device placement; Picc; Additional info: Picc placement TECHNIQUE: Imaging protocol: Radiologic exam of the chest. Views: 1 view. COMPARISON: CR (CHEST, ) 03/29/2023 5:05 PM FINDINGS: Tubes, catheters and devices: Left PICC line terminates at the cavoatrial junction. Lungs: Unremarkable. No consolidation. Pleural spaces: Unremarkable. No pleural effusion. No pneumothorax. Heart/Mediastinum: Unremarkable. No cardiomegaly. Bones/joints: Unremarkable. XR/XR chest 1V portable [id number] IMPRESSION: Left PICC line in proper positioning.
[2023-03-29 22:14] LABS: Lactic Acid level (Lactate) 1.4 mmol/L (0.5-2.2)
--- NOTE | 2023-03-29 22:23 | PC.NURSE ---
COnsent obtained by myself and the patient. All risk and benefits discussed. Risk included but not limited to dvt and infection. LUE scanned with US and basilic vein was the best option. Vein was straight, 5 mm, and free of visible clot. Pt draped in usual sterile fashion. Using real time US, idocaine injected, vein accessed, an picc floated into position. CHest xray obtined an waiting on results. EBL less then 5 ml. No bleeeing no hematoma. Pt arm circumference is 28 cm at 10 cm above the ac fossa.
[2023-03-29 23:02] LABS: Glucose Point of Care 163 mg/dL (70-110)
[2023-03-29] MEDS: dextrose 5%-sod chloride 0.45% 1,000 ML 125 ML IV (23:24)
[2023-03-30] VITALS (20 sets, daily range): BP systolic 90–124; BP diastolic 60–81; PULSE 68–88; RESP 12–23; TEMP 36.5–36.6; O2SAT 93–100
[2023-03-30 00:20] LABS: Glucose Point of Care 165 mg/dL (70-110)
--- NOTE | 2023-03-30 00:20 | PC.NURSE ---
Addendum entered by Cally Fuentes RN 03/30/23 02:58: At every hour, when accu check was completed, this nurse informed Dr. Riddle of the result and titrated insulin drip as ordered. for 0300 check, pt BG was 165, so Dr. Riddle instructed this nurse to hold insulin, and continue per protocol Original Note: Dr. Riddle consulted after 2300 accu check showed sugar to be 163. Protocol indicated that insulin gtt should be lowered by 8 u/hr, but pt was only receiving 7 u/hr. Per order from Dana via H&P (verified with Venkatesh), pt was started on D5-1/2NS@125/hr and pt's NS w/K+ was paused. Insulin gtt changed to 1 unit/hr. At 0000 accu check, pt BG 165. Venkatesh notified.
[2023-03-30 00:40] LABS: Anion Gap 14.7 (5-19); Blood Urea Nitrogen 12 mg/dL (6-20); Carbon Dioxide 18 mmol/L (22-29); Chloride 107 mmol/L (98-107); Glomerular Filtration Rate 70.5 mL/min (90-130); Glucose 175 mg/dL (65-115); Magnesium 1.5 mg/dL (1.7-2.3); Osmolality Calculated 286 mOsm/kg (285-295); Potassium 3.7 mmol/L (3.5-5.1); Sodium 136 mmol/L (136-145)
[2023-03-30 00:52] LABS: Troponin 5 6HR < 6.0 ng/L (0-10); Troponin 5 6HR Delta 0 ng/L (0-12)
[2023-03-30] MEDS: magnesium sulfate premix 2 GM/50 ML PIGGYBACK IV (01:12)
[2023-03-30 01:15] LABS: Glucose Point of Care 218 mg/dL (70-110)
[2023-03-30] MEDS: potassium phosphate (mEq K) 40 MEQ in sodium chloride 0.9% (100 ml) 100 ML 27.27 MEQ IV (01:43)
[2023-03-30 02:06] LABS: Glucose Point of Care 180 mg/dL (70-110)
--- NOTE | 2023-03-30 02:18 | PC.NURSE ---
Pt repeatedly removing BP cuff. Pt educated on need for BP checks. Pt told this nurse: I don't have to have that fuckin thing on. This nurse re-applied BP cuff again and asked pt to leave it on for at least one measurement now.
[2023-03-30 02:36] LABS: Magnesium 2.2 mg/dL (1.7-2.3)
[2023-03-30 02:56] LABS: Glucose Point of Care 165 mg/dL (70-110)
[2023-03-30] MEDS: ondansetron 2 mg/ML SDV 2 mL 4 MG IVP (03:53)
[2023-03-30 03:54] LABS: Glucose Point of Care 227 mg/dL (70-110)
[2023-03-30 05:00] LABS: Glucose Point of Care 201 mg/dL (70-110)
[2023-03-30] MEDS: dextrose 5%-sod chloride 0.45% 1,000 ML 200 ML IV (05:08)
[2023-03-30] MEDS: morphine 4 mg/mL SDV 1 mL 2 MG IVP (05:33)
[2023-03-30 05:35] LABS: Anion Gap 15.3 (5-19); Blood Urea Nitrogen 10 mg/dL (6-20); Calcium 7.5 mg/dL (8.5-10.5); Carbon Dioxide 18 mmol/L (22-29); Chloride 105 mmol/L (98-107); Glomerular Filtration Rate 80.7 mL/min (90-130); Glucose 284 mg/dL (65-115); Osmolality Calculated 287 mOsm/kg (285-295); Phosphorus 3.8 mg/dL (2.5-4.5); Potassium 4.3 mmol/L (3.5-5.1); Sodium 134 mmol/L (136-145)
[2023-03-30 06:09] LABS: Glucose Point of Care 283 mg/dL (70-110)
[2023-03-30 07:24] LABS: Glucose Point of Care 324 mg/dL (70-110)
[2023-03-30 08:09] LABS: Glucose Point of Care 310 mg/dL (70-110)
[2023-03-30 08:53] LABS: Anion Gap 13.1 (5-19); Blood Urea Nitrogen 8 mg/dL (6-20); Calcium 7.4 mg/dL (8.5-10.5); Carbon Dioxide 19 mmol/L (22-29); Chloride 103 mmol/L (98-107); Glomerular Filtration Rate 94.2 mL/min (90-130); Glucose 365 mg/dL (65-115); Magnesium 2.1 mg/dL (1.7-2.3); Osmolality Calculated 285 mOsm/kg (285-295); Phosphorus 2.9 mg/dL (2.5-4.5); Potassium 4.1 mmol/L (3.5-5.1); Sodium 131 mmol/L (136-145)
[2023-03-30 09:17] LABS: Free T4 Free Thyroxine 0.54 ng/dL (0.82-1.77)
[2023-03-30 09:58] LABS: Glucose Point of Care 366 mg/dL (70-110)
[2023-03-30 11:23] LABS: Glucose Point of Care 252 mg/dL (70-110)
[2023-03-30] MEDS: insulin glargine 100 units/1 mL 15 UNIT SUBCUT ×2 (11:26→23:25)
[2023-03-30] MEDS: sodium chloride 0.9% 1,000 ML 75 ML IV ×2 (11:27→23:25)
[2023-03-30 12:39] LABS: Glucose Point of Care 198 mg/dL (70-110)
--- NOTE | 2023-03-30 12:45 | PC.NURSE ---
Insulin Drip Turned insulin gtt off per doctor orders at 1230.
[2023-03-30 12:50] LABS: Anion Gap 11.6 (5-19); Blood Urea Nitrogen 6 mg/dL (6-20); Calcium 7.8 mg/dL (8.5-10.5); Carbon Dioxide 21 mmol/L (22-29); Chloride 105 mmol/L (98-107); Glomerular Filtration Rate 94.2 mL/min (90-130); Glucose 207 mg/dL (65-115); Osmolality Calculated 282 mOsm/kg (285-295); Phosphorus 1.3 mg/dL (2.5-4.5); Potassium 3.6 mmol/L (3.5-5.1); Sodium 134 mmol/L (136-145)
--- NOTE | 2023-03-30 15:41 | PC.NURSE ---
Transfer Note Patient transferred to med-surg room 276-2 from ICU via wheelchair. Handoff report given to VIRGINIA Degroot. Patient oriented to environment and equipment. Covering service notified. Orders reviewed and will continue to monitor. All belongings taken with patient and placed at bedside.
[2023-03-30 17:29] LABS: Glucose Point of Care 293 mg/dL (70-110)
[2023-03-30] MEDS: insulin lispro 100 unit/1 mL SUBCUT (18:16)
[2023-03-30] MEDS: pantoprazole 40 mg SDV IVP (18:16)
[2023-03-30] MEDS: enoxaparin 40 mg/0.4 mL Syringe SUBCUT (18:16)
--- NOTE | 2023-03-30 18:28 | P.PN_ITS ---
Subjective Subjective: Patient was examined this morning, overnight she wanted to leave AGAINST MEDICAL ADVICE, this morning she is agreeable to stay here in the hospital, she remains on insulin drip at 6, blood sugars in the 300s, last anion gap is at 15, has received potassium replacement, she was monitored throughout the morning, anion gap 12, blood sugars in the 300s, was given 15 of Lantus, with overlapping insu zabrina drip for about an hour, repeat blood sugar at about 1, was 190, insulin drip was stopped, transition to subcu insulin, transition to diabetic diet Vitals/I&O/Wt Last Vital Signs Temp 97.9 F 03/30/23 16:00 Pulse 77 03/30/23 16:00 Resp 16 03/30/23 16:00 BP 124/80 03/30/23 16:00 Pulse Ox 99 03/30/23 16:00 O2 Del Method Room Air 03/29/23 20:07 03/30/23 03/30/23 03/30/23 06:59 14:59 22:59 Intake Total 1584.8696 / 2605.1266 1745.947 / 1745.947 360 / 2105.947 Balance 1584.8696 / 2605.1266 1745.947 / 1745.947 360 / 2105.947 Weight last 48 hrs Weight 69.4 kg Physical Exam Const: COMMON NORMALS: no acute distress and patient oriented x3 Resp: COMMON NORMALS: normal respiratory effort, No retractions, No use of accessory muscles and clear to auscultation bilaterally AUSCULTATION: clear to auscultation bilaterally Cardio: COMMON NORMALS: regular rate, regular rhythm, S1 normal heart sound present and S2 normal heart sound present RATE: regular rate RHYTHM: regular rhythm HEART SOUNDS: S1 normal heart sound present and S2 normal heart sound present GI: COMMON NORMALS: Normal to inspection, nondistended, normoactive bowel sounds present and non-tender Extremity: COMMON NORMALS: no pedal edema Neuro: COMMON NORMALS: patient oriented x3 Psych: COMMON NORMALS: mental status grossly normal Data 03/29/23 16:12 03/30/23 12:26 Micro: Microbiology 03/29/23 19:45 Blood Culture - Preliminary Blood SPECIMEN COLLECTED 03/29/23 19:35 Blood Culture - Preliminary Blood SPECIMEN COLLECTED A&P Assessment and plan (1) DKA (diabetic ketoacidosis): (2) Methamphetamine use disorder, severe: (3) Type 1 diabetes mellitus: (4) H/O kidney removal: Plan Diabetic ketoacidosis -Anion gap 30.7, blood sugar of 619, bicarb 12, pH 7.27, ketone positive -Admit to ICU -DKA protocol -Now anion gap closed, ? Lantus 15 units twice daily, insulin sliding scale -CODE STATUS, confirmed with patient that she is a DNR/DNI -Lovenox for DVT prophylaxis Acute kidney injury, IV fluids History of hypothyroidism, check TSH, has not taken medication in over 2 weeks Reported drug use, check urine toxicology screen, blood alcohol level, lipase Nausea, vomiting, diarrhea, stool studies, UA, lipase, pain control, nausea control Patient was examined this morning, overnight she wanted to leave AGAINST MEDICAL ADVICE, this morning she is agreeable to stay here in the hospital, she remains on insulin drip at 6, blood sugars in the 300s, last anion gap is at 15, has received potassium replacement, she was monitored throughout the morning, anion gap 12, blood sugars in the 300s, was given 15 of Lantus, with overlapping insulin drip for about an hour, repeat blood sugar at about 1, was 190, insulin drip was stopped, transition to subcu insulin, transition to diabetic diet we will move to general medical floors Attestations Medical Necessity Statement*: Patient requires hospitalization for diabetic ketoacidosis Coding Level of Care Code Critical Care >/= 30 minutes Critical care time (in minutes): 35 The high probability of a clinically significant, sudden or life threatening deterioration, as referenced in this documentation, required my full and direct attention, intervention and personal management. The critical care time shown is in addition to time spent performing any reported separately billable procedures and includes the following: [x] Data and vital sign review and interpretation [x ] Patient assessment, examination and intervention [x] Medication orders and management [x] Patient/Family updates as able [x] Care Coordination and Documentation. Diagnoses DKA (diabetic ketoacidosis) E11.10 Methamphetamine use disorder, severe F15.20 Type 1 diabetes mellitus E10.9 H/O kidney removal Z90.5
[2023-03-30 20:49] LABS: Glucose Point of Care 271 mg/dL (70-110)
[2023-03-31] VITALS (8 sets, daily range): BP systolic 100–110; BP diastolic 66–76; PULSE 72–81; RESP 17–18; TEMP 36.4–36.8; O2SAT 96–99
[2023-03-31] MEDS: ondansetron 2 mg/ML SDV 2 mL 4 MG IVP (04:13)
[2023-03-31 05:48] LABS: Basophils # 0.1 10^3/uL (0.0-0.1); Eosinophils # 0.3 10^3/uL (0.0-0.8); Eosinophils % 4.3 %; Hematocrit 30.6 % (36-47); Lymphocytes # 2.1 10^3/uL (0.8-4.8); Lymphocytes % 34.2 %; Mean Corpuscular HGB Conc 33.7 g/dL (30-55); Mean Corpuscular Volume 89.2 fl (85-98); Mean Platelet Volume 10.6 fL (7.4-10.4); Monocytes # 0.5 10^3/uL (0.2-0.9); Monocytes % 7.5 %; Neutrophils # 3.23 10^3/uL (1.8-7.7); Neutrophils % 52.8 %; Nucleated Red Blood Cells % 0 %; Platelet Count 182 10^3/cmm (157-399); Red Blood Count 3.43 10^6/uL (3.85-5.65); Red Cell Distribution Width 13.1 % (12.1-15.1); White Blood Count 6.11 10^3/uL (3.29-11.43)
[2023-03-31 06:11] LABS: Magnesium 1.8 mg/dL (1.7-2.3); Phosphorus 1.9 mg/dL (2.5-4.5)
[2023-03-31 06:12] LABS: Anion Gap 9.3 (5-19); Blood Urea Nitrogen 6 mg/dL (6-20); Carbon Dioxide 23 mmol/L (22-29); Chloride 108 mmol/L (98-107); Glomerular Filtration Rate 94.2 mL/min (90-130); Glucose 416 mg/dL (65-115); Osmolality Calculated 297 mOsm/kg (285-295); Potassium 4.3 mmol/L (3.5-5.1); Sodium 136 mmol/L (136-145)
[2023-03-31 06:34] LABS: Glucose Point of Care 369 mg/dL (70-110)
[2023-03-31] MEDS: sertraline 50 mg Tablet 25 MG PO (08:02)
[2023-03-31] MEDS: levothyroxine 125 mcg Tablet PO (08:05)
[2023-03-31] MEDS: insulin lispro 100 unit/1 mL SUBCUT (08:07)
[2023-03-31] MEDS: insulin glargine 100 units/1 mL 25 UNIT SUBCUT (08:39)
--- NOTE | 2023-03-31 10:37 | P.DS_ITS ---
Discharge Providers Date of Admission: 03/29/23 17:00 Date of Discharge: March 31, 2023 Attending Provider at Admission: Josemanuel Cortez MD Attending Provider at Discharge: Josemanuel Cortez MD Primary Care Provider: Shanti Lee DO Diagnoses at Discharge Discharge Diagnosis (1) DKA (diabetic ketoacidosis): Status: Acute (2) Methamphetamine use disorder, severe: Status: Acute (3) Type 1 diabetes mellitus: Status: Acute (4) H/O kidney removal: Status: Acute Permanent problem details: LEFT SIDE Reason for Visit Reason for Visit: high glucose, n,v Hospital Course Hospital Course Ling Humphrey is a 37 year old female with a past medical history of type 1 diabetes mellitus, who presents to [facility] due to nausea, vomiting, diarrhea for the last 2 weeks.? Patient tells me that for the last 2 weeks, she had nausea vomiting and diarrhea, no abdominal pain, no recent travel, no sick contacts, she denies being , she has had bilateral tubal ligation, denies any fevers, no chills, no exposure to COVID-19 or exposure to the flu, she has not taken her insulin or any of her medications for the last 2 weeks, denies any chest pain, no palpitations, no cough, no back pain, she does admit that she relapsed on her drug use, she has used methamphetamine about a week ago and she orally consumed it, denies IV use of the drug This is a 37-year-old female who presents [facility] for diabetic ketoacidosis, received diabetic ketoacidosis protocol, IV fluids, electrolyte replacement, insulin drip, monitor in ICU, anion gap closed, blood sugars are reasonable, moved out of ICU, received extensive diabetic education, will be discharged on Lantus 25 units in the morning, 50 units in the evening, with a Humalog insulin sliding scale. Patient will follow-up with primary care in a week, follow-up with Dr. Sanchez in a week. Patient does report methamphetamine use, advised to abstain from drug use Physical Exam Const: COMMON NORMALS: no acute distress and patient oriented x3 Resp: COMMON NORMALS: normal respiratory effort, No retractions, No use of accessory muscles and clear to auscultation bilaterally AUSCULTATION: clear to auscultation bilaterally Cardio: COMMON NORMALS: regular rate, regular rhythm, S1 normal heart sound present and S2 normal heart sound present RATE: regular rate RHYTHM: regular rhythm HEART SOUNDS: S1 normal heart sound present and S2 normal heart sound present GI: COMMON NORMALS: Normal to inspection, nondistended, normoactive bowel sounds present and non-tender Extremity: COMMON NORMALS: no pedal edema Neuro: COMMON NORMALS: patient oriented x3 Psych: COMMON NORMALS: mental status grossly normal Discharge Data Studies Completed and Pending Completed Studies During Hospitalization Category Date Time Status XR chest 1V portable [id number] Stat Exams 03/29/23 16:40 Completed XR chest 1V portable [id number] Stat Exams 03/29/23 22:11 Completed Pending at discharge Category Date Time Status Basic Metabolic Panel AM LABS Lab 04/01/23 04:00 Ordered Basic Metabolic Panel AM LABS Lab 04/02/23 04:00 Ordered Blood Culture Routine Lab 03/29/23 19:45 Results Clostridium Diffi Toxin Reflex Routine Lab 03/29/23 18:13 Ordered Complete Blood Count w/Auto AM LABS Lab 04/01/23 04:00 Ordered Complete Blood Count w/Auto AM LABS Lab 04/02/23 04:00 Ordered Immunochemical Fecal OCB Routine Lab 03/29/23 18:13 Ordered Lactoferrin Routine Lab 03/29/23 18:13 Ordered Magnesium AM LABS Lab 04/01/23 04:00 Ordered Magnesium AM LABS Lab 04/02/23 04:00 Ordered OVA and Parasites, Conc and PE Routine Lab 03/29/23 18:13 Ordered Phosphorus AM LABS Lab 04/01/23 04:00 Ordered Phosphorus AM LABS Lab 04/02/23 04:00 Ordered SARS Covid-2 Antigen Routine Lab 03/30/23 18:43 Ordered Salmonella / Shigella / Campy Routine Lab 03/29/23 18:13 Ordered Sputum Culture and Gram Stain Stat Lab 03/29/23 17:47 Uncollected Radiology Impressions Chest X-Ray 03/29/23 22:11 IMPRESSION: Left PICC line in proper positioning. Laboratory Results WBC 6.11 10^3/uL (3.29-11.43) 03/31/23 05:40 RBC 3.43 10^6/uL (3.85-5.65) L 03/31/23 05:40 Hgb 10.30 g/dL (11.27-16.99) L 03/31/23 05:40 Hct 30.6 % (36-47) L 03/31/23 05:40 MCV 89.2 fl (85-98) 03/31/23 05:40 MCH 30.0 pg (27-33) 03/31/23 05:40 MCHC 33.7 g/dL (30-55) 03/31/23 05:40 RDW 13.1 % (12.1-15.1) 03/31/23 05:40 Plt Count 182 10^3/cmm (157-399) 03/31/23 05:40 MPV 10.6 fL (7.4-10.4) H 03/31/23 05:40 Neut % (Auto) 52.8 % 03/31/23 05:40 Lymph % (Auto) 34.2 % 03/31/23 05:40 [place] % (Auto) 7.5 % 03/31/23 05:40 Eos % (Auto) 4.3 % 03/31/23 05:40 Baso % (Auto) 1.0 % 03/31/23 05:40 Neut # (Auto) 3.23 10^3/uL (1.8-7.7) 03/31/23 05:40 Lymph # (Auto) 2.1 10^3/uL (0.8-4.8) 03/31/23 05:40 [place] # (Auto) 0.5 10^3/uL (0.2-0.9) 03/31/23 05:40 Eos # (Auto) 0.3 10^3/uL (0.0-0.8) 03/31/23 05:40 Baso # (Auto) 0.1 10^3/uL (0.0-0.1) 03/31/23 05:40 Nucleated RBC % (auto) 0 % 03/31/23 05:40 Nucleated RBCs # 0.0 /100WBC 03/31/23 05:40 Specimen Type Arterial 03/29/23 16:24 Sample Site Brachial, left 03/29/23 16:24 ABG pH 7.27 (7.35-7.45) L 03/29/23 16:24 ABG pCO2 18.7 mmHg (35-45) L* 03/29/23 16:24 ABG pO2 117.0 mmHg (80.0-100.0) H 03/29/23 16:24 ABG HCO3 8.5 mmol/L (22-26) L 03/29/23 16:24 ABG O2 Saturation 99.2 03/29/23 16:24 ABG Base Excess -15.8 mmol/L (-2.0-2.0) L 03/29/23 16:24 Cale Test Neg 03/29/23 16:24 A-a O2 Gradient 0.9 mmHg (5-10) L 03/29/23 16:24 Hematocrit 46.7 % (37-47) 03/29/23 16:24 Hgb O2 Saturation 96.4 % (95-100) 03/29/23 16:24 Carboxyhemoglobin 1.8 %THgb (0.4-20.1) 03/29/23 16:24 Methemoglobin 1.0 % (0.4-1.5) 03/29/23 16:24 Total Hemoglobin 15.2 g/dL (12-16) 03/29/23 16:24 Sodium 129.0 mmol/L (131-143) L 03/29/23 16:24 Potassium 4.8 mmol/L (3.5-5.0) 03/29/23 16:24 Glucose 647.0 mg/dL (70-115) H 03/29/23 16:24 Ionized Calcium 1.2 mmol/L (1.1-1.4) 03/29/23 16:24 O2 Delivery Device Room air 03/29/23 16:24 Zoo Director ID [place] 03/29/23 16:24 Sodium 136 mmol/L (136-145) 03/31/23 05:40 Potassium 4.3 mmol/L (3.5-5.1) 03/31/23 05:40 Chloride 108 mmol/L (98-107) H 03/31/23 05:40 Carbon Dioxide 23 mmol/L (22-29) 03/31/23 05:40 Anion Gap 9.3 (5-19) 03/31/23 05:40 BUN 6 mg/dL (6-20) 03/31/23 05:40 Creatinine 0.7 mg/dL (0.5-0.9) 03/31/23 05:40 GFR Calculation 94.2 mL/min (90-130) 03/31/23 05:40 Glucose 416 mg/dL (65-115) H 03/31/23 05:40 POC Glucose 369 mg/dL (70-110) H 03/31/23 06:30 Estimat Average Glucose 272 03/29/23 16:12 Hemoglobin A1c 11.1 % (4.0-6.0) H 03/29/23 16:12 Calculated Osmolality 297 mOsm/kg (285-295) H 03/31/23 05:40 Lactic Acid 2.3 mmol/L (0.5-2.2) H 03/29/23 18:21 Lactic Acid (Sepsis) 1.4 mmol/L (0.5-2.2) 03/29/23 21:46 Calcium 8.0 mg/dL (8.5-10.5) L 03/31/23 05:40 Phosphorus 1.9 mg/dL (2.5-4.5) L 03/31/23 05:40 Magnesium 1.8 mg/dL (1.7-2.3) 03/31/23 05:40 Total Bilirubin 0.4 mg/dL (0.15-1.2) 03/29/23 16:12 AST 13 U/L (0-32) 03/29/23 16:12 ALT 12 U/L (0-33) 03/29/23 16:12 Alkaline Phosphatase 78 U/L (35-105) 03/29/23 16:12 Troponin T Baseline < 6 ng/L (0-10) 03/29/23 18:35 Troponin T 120 Minute 6.0 ng/L (0-10) 03/29/23 21:00 Delta Troponin T 0.05883 ABS# (0-10) 03/29/23 21:00 Troponin T Hi Sens 6Hr < 6.0 ng/L (0-10) 03/30/23 00:14 Troponin T Hi Sens 6Hr Delta 0 ng/L (0-12) 03/30/23 00:14 C-Reactive Protein 6.9 mg/L (0.0-4.9) H 03/29/23 18:35 Total Protein 8.5 g/dL (6.6-8.7) 03/29/23 16:12 Albumin 4.6 g/dL (3.5-5.2) 03/29/23 16:12 Globulin 3.9 g/dL (1.3-4.6) 03/29/23 16:12 Lipase 15 U/L (13-60) 03/29/23 18:35 Procalcitonin 0.04 ng/mL (0-0.5) 03/29/23 18:35 TSH 24.65 uIU/mL (0.27-4.20) H 03/29/23 18:35 Free T4 0.54 ng/dL (0.82-1.77) L 03/30/23 08:04 Free T3 1.0 PG/ML (2.0-4.4) L 03/30/23 08:04 Urine Color Yellow (Yellow) 03/29/23 19:45 Urine Appearance Clear (CLEAR) 03/29/23 19:45 Urine pH 5 (5-7) 03/29/23 19:45 Ur Specific [place] 1.020 (1.005-1.030) 03/29/23 19:45 Urine Protein Neg (Negative) 03/29/23 19:45 Urine Glucose (UA) 4+ (Normal) H 03/29/23 19:45 Urine Ketones 3+ (Negative) H 03/29/23 19:45 Urine Blood 2+ (Negative) H 03/29/23 19:45 Urine Nitrate Negative (Negative) 03/29/23 19:45 Urine Bilirubin Neg (Negative) 03/29/23 19:45 Urine Urobilinogen Neg mg/dL (Negative) 03/29/23 19:45 Ur Leukocyte Esterase Negative (Negative) 03/29/23 19:45 Urine RBC 0-4 /hpf (0-2) H 03/29/23 19:45 Urine WBC None /hpf (0-5) 03/29/23 19:45 Ur Squamous Epith Cells None /hpf (0-5) 03/29/23 19:45 Amorphous Sediment Not Reportable 03/29/23 19:45 Urine Bacteria Trace /hpf (NONE) 03/29/23 19:45 Urine Opiates Screen Negative ng/mL (Negative) 03/29/23 19:45 Ur Barbiturates Screen Negative ng/mL (Negative) 03/29/23 19:45 Ur Phencyclidine Scrn Negative ng/mL (Negative) 03/29/23 19:45 Ur Amphetamines Screen Negative ng/mL (Negative) 03/29/23 19:45 U Benzodiazepines Scrn Negative ng/mL (Negative) 03/29/23 19:45 Urine Cocaine Screen Negative ng/mL (Negative) 03/29/23 19:45 U Marijuana (THC) Screen Negative ng/mL (Negative) 03/29/23 19:45 Ethyl Alcohol < 10 mg/dL (0-10) 03/29/23 18:35 Serum Ketones Positive (Negative) H 03/29/23 16:12 Vitals Last Vital Signs Temp 97.5 F L 03/31/23 08:00 Pulse 81 03/31/23 08:00 Resp 18 03/31/23 08:00 BP 100/66 03/31/23 08:00 Pulse Ox 96 03/31/23 07:38 O2 Del Method Room Air 03/31/23 07:38 Discharge Plan Discharge Patient Disposition: Home Condition: Stable Prescriptions: New Lantus Solostar U-100 Insulin 100 unit/mL (3 mL) insulin pen See Rx Instructions .ROUTE .COMPLEX Qty: 15 0RF Rx Instructions: 25 units qam and 15 units qpm Humalog KwikPen Insulin 100 unit/mL insulin pen See Rx Instructions .ROUTE .COMPLEX Qty: 15 0RF Rx Instructions: Inject, subcut, 3 times daily, after meals, based on sliding scale provided Glucagon (HCl) Emergency Kit 1 mg recon soln 1 mg IM Q20M PRN (Reason: hypoglycemia) Qty: 1 0RF Rx Instructions: until target blood sugar attained (DME) glucometer testing kit See Rx Instructions .Route .MEDSUPPLY Qty: 1 0RF Rx Instructions: Glucometer testing kit Lancets #100 Strips #100 Continued albuterol sulfate 90 mcg/actuation HFA aerosol inhaler 2 puff INHALATION Q6H PRN (Reason: shortness of breath or wheezing) Qty: 8.5 0RF ondansetron 4 mg tablet,disintegrating 4 mg PO Q6H PRN (Reason: nausea and vomiting) Qty: 12 0RF Rx Instructions: 340b please levothyroxine 125 mcg capsule 125 mcg PO DAILY Qty: 30 0RF sertraline 25 mg tablet 25 mg PO DAILY Discontinued insulin glargine 100 unit/mL Solution 15 unit SUBCUT BEDTIME Qty: 5 0RF insulin aspart U-100 100 unit/mL (3 mL) insulin pen See Rx Instructions SUBCUT TID Qty: 15 3RF Rx Instructions: S/S PLUS 1UNIT FOR EVERY 6G OF CARBS SUBCUT three times daily; Lantus Solostar U-100 Insulin 100 unit/mL (3 mL) insulin pen 30 unit SUBCUT QAM Discharge Orders: Discharge Order (Routine); Ordered 03/31/23 Ordered By: Josemanuel Cortez Referrals: Shanti Lee DO [Primary Care Provider] - Rickie Sanchez MD [Physician] - Discharge Diet: Cardiac Discharge Activity: Resume usual activity Patient Instructions: Glucagon (By injection), Insulin Lispro Protamine/Insulin Lispro (By injection), Insulin Glargine (By injection), Diabetic Ketoacidosis (GEN), Opioid Safety Activity Restrictions/Additional Instructions: -Inject Lantus 25 units every morning, 15 units every evening -Please monitor your blood sugars closely -Monitor your blood sugars 3 times daily as after meals -Please record your blood sugars, and a blood sugar log -For your humalog -Please inject blood sugar after meals based on sliding scale provided -Do not inject insulin if you do not eat as hypoglycemia kills -This is a Humalog sliding scale -Insulin sliding ?fingerstick? Insulin ?141-180?0 units/sq 181-220?2 units/sq ?221-260?4 units/sq ?261-300 6 units/sq ?301-350?8 units/sq ?351-400 10 units/sq ?401-450?12 units/sq >450? 14units/sq -If your blood sugar is greater than 500 go to the emergency room -If your blood sugar is less than 60 or at anytime you feel lightheaded or dizzy or diaphoretic or have chest palpitations check your blood sugar, and eat a hard candy or drink orange juice and go immediately to the emergency room -Remember hypoglycemia kills, so if his blood sugar is less than 60 we have to increase it by taking in a sugary meal such as a hard candy or orange juice and go to the emergency room -If you have any questions please call us where here to help -I have also provided you a emergency glucagon pen -Please follow-up with primary care provider in the next week Discharge Attestations Time Spent in Discharge Care*: greater than 30 min Quality Metrics Clinical Quality Measures [ No reported AMI, CVA or VTE this stay] Coding Level of Care Code 98861 Total time (in minutes) for Discharge: 45 Diagnoses DKA (diabetic ketoacidosis) E11.10 Methamphetamine use disorder, severe F15.20 Type 1 diabetes mellitus E10.9 H/O kidney removal Z90.5
[2023-03-31 11:49] LABS: Glucose Point of Care 131 mg/dL (70-110)
--- NOTE | 2023-03-31 13:12 | PC.NURSE ---
Discussed discharge, new medications, follow up appointments and sliding scale with patient. Verbalized understanding. Not sure if patient understood everything but explained to patients ride to [facility].
[2023-05-04 11:17] LABS: ABG PCO2 18.7 mmHg (35-45)
== END 2023-03-31 13:10 | disposition home or self-care (01) | DRG 638 ==
LOC: ER 16:36 → ICU 17:14 → MEDSURG 03-30 15:23
PROVIDERS: Internal Medicine; Admitting Provider Family Medicine; Emergency Provider Family Medicine; PCP Family Medicine; Visit Provider Family Medicine
DX: E10.10 Type 1 diabetes mellitus with ketoacidosis without coma (principal); F15.20 Other stimulant dependence, uncomplicated; N17.9 Acute kidney failure, unspecified; Z90.5 Acquired absence of kidney; T38.3X6A Underdosing of insulin and oral hypoglycemic [antidiabetic] drugs, initial encounter; Z91.128 Patient's intentional underdosing of medication regimen for other reason; E03.9 Hypothyroidism, unspecified; F17.210 Nicotine dependence, cigarettes, uncomplicated
CPT/HCPCS: 36415; 36416; 36573; 36592; 36600; 71045; 80048; 80051; 80053; 80306; 80307; 81001; 82009; 82330; 82805; 82962; 83036; 83605; 83690; 83735; 84100; 84145; 84439; 84443; 84481; 84484; 85025; 86140; 87040; 93005; 94664; 96365; 96367; 96372; 96375; 96376; 99285; C1751; C9113; J1650; J1815; J2270; J2405; J3475; J3480; J7030; J7050; J7799

== ENCOUNTER 2023-05-09 14:39 | Emergency (ER) | payer MEDICAID, SELFPAY ==
[2023-01-25 11:37] VITALS: BP 105/74; BMI 26.6
[2023-05-09 14:46] VITALS: BP 94/59; PULSE 79; RESP 18; TEMP 36.8; O2SAT 93; BMI 25.7
[2023-05-09 14:54] LABS: Glucose Point of Care 158 mg/dL (70-110)
[2023-05-09 15:00] VITALS: PULSE 78; O2SAT 98
--- NOTE | 2023-05-09 15:00 | ECG_ITS ---
[facility] Test Date: 2023-05-09 Pat Name: Ling Humphrey Department: Room: Gender: Female Certified Medical Aide: : 1985 Requested By: Keyur Fuentes Order Number: [id number] Collette MD: Zahra Edwards M.D. Measurements Intervals [place] Rate: 79 P: 28 ND: 149 QRS: 52 QRSD: 74 T: 58 QT: 376 QTc: 433 Interpretive Statements SINUS RHYTHM Compared to ECG 03/29/2023 16:42:16 No significant changes Electronically Signed On 05-09-2023 21:27:08 WELD FITTER by Zahra Edwards M.D. [id number]
--- NOTE | 2023-05-09 15:00 | XRR_ITS ---
PROCEDURE INFORMATION: Exam: XR Chest Exam date and time: 05/09/2023 3:08 PM Age: 37 years old Clinical indication: Chest wall pain; Additional info: Cp TECHNIQUE: Imaging protocol: Radiologic exam of the chest. Views: 1 view. COMPARISON: CR (CHEST, ) 03/29/2023 10:18 PM FINDINGS: Lungs: No consolidation. Pleural spaces: No pleural effusion. No pneumothorax. Heart/Mediastinum: No cardiomegaly. Bones/joints: No acute findings. XR/XR chest 1V portable [id number] IMPRESSION: No acute findings.
--- NOTE | 2023-05-09 15:06 | W.ED.CHESTPA ---
HPI - Chest Pain General: Chief Complaint: Chest Pain Stated Complaint: CHEST PAIN Time Seen by Provider: 05/09/23 14:40 Source: patient Mode of arrival: EMS Limitations: no limitations History of Present Illness: This patient presented to our emergency department by EMS from her domicile which apparently is admission home. She apparently had episodes where she felt dizzy earlier today and also had an associated epigastric discomfort. She states that she has had a couple of similar episodes of epigastric discomfort in the past. She denies any difficulty breathing focal weakness numbness etc. She states her blood sugars have been pretty well-controlled in the 150 range and her most recent blood blood sugar this morning was 158 which was confirmed by EMS which they obtained a very similar reading using their glucometer. She states that she ate her normal meal this morning. She denies any history of food related abdominal pains. She states that she has not had any history of gallbladder problems. She is unaware of any history of peptic ulcer disease or acid reflux. She denies any palpitations, history of known cardiovascular disease etc. She states that she has been somewhat dizzy but denies any associated headache focal weakness, decrease in or change in hearing, difficulty with walking etc. Associated symptoms: Deny dyspnea, fever(s), nausea, palpitations, syncope or vomiting Review of Systems Const: Denies: fever(s) or chills Eyes: Denies: change in vision or blurry vision ENMT: Denies: throat pain, odynophagia, nasal discharge or nasal congestion Card: Reports: chest pain, lightheadedness and pre-syncope; Denies: palpitations or syncope Resp: Denies: dyspnea, productive cough or non-productive cough GI: Denies: nausea, vomiting or diarrhea : Denies: flank pain, difficulty voiding, dysuria or urinary frequency Musc: Denies: neck pain, back pain, extremity pain or extremity swelling Skin/Breast: Denies: rash or pruritus Neuro: Reports: dizziness; Denies: headache(s), numbness in extremities, weakness in extremities, Slurred speech present or seizure-like activity Endo: Denies: polyuria or polydipsia PFS ED PFSH: Medical History Psychiatric care Methamphetamine abuse Psychiatric disorder Hypothyroidism Type 1 diabetes mellitus Surgical History H/O section H/O tubal ligation H/O kidney removal LEFT SIDE Family History Father Lung cancer Social History Smoking and tobacco/nicotine status: current every day tobacco/nicotine user cigarettes Packs smoked per day: 1 Years cigarettes smoked: 13 Quit status (tobacco/nicotine): not considering quitting Second hand smoke exposure: Yes Alcohol intake: current Alcohol intake frequency: holidays/special occasions only Substance/Drug Use: former Date of last use: 04/03/23 Adopted: No 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) Lives independently: No Household members: other Details: lives at [facility] Housing: House Marital status: Number of children: 2 Number of grandchildren: 0 Highest education level completed: High School Graduate Education level details: Has [employer], [employer] Tactical service: No Current occupational status: unemployed Current occupational exposures/hazards: No Pets and animals: No Leisure activites: volunteer work Sexually active: No Do you think of yourself as: Straight/Heterosexual Current gender identity: Female Flavia/Rastafari: Episcopalian Special flavia needs: No Female Reproductive History: Para: 2 Spontaneous abortions: No Physical Exam Narrative: EXAM NARRATIVE: She is alert and in no acute distress answers questions in a goal-directed fashion. She is cooperative. Const: COMMON NORMALS: no acute distress, average body habitus and patient oriented x3 GENERAL APPEARANCE: cooperative and comfortable ORIENTATION/CONSCIOUSNESS: Yes awake, Yes oriented to person and Yes oriented to place HENMT: COMMON NORMALS: normocephalic, atraumatic, TM's normal bilaterally, Normal nasal mucous membranes and turbinates present and moist oral mucous membranes HEAD & SCALP: normocephalic and atraumatic FACE & SINUS: normal facial exam and face symmetric NOSE: Normal nasal mucous membranes and turbinates present TYMPANIC MEMBRANE: TM's normal bilaterally Eye: COMMON NORMALS: Equal, round and reactive pupils present, EOMs intact bilaterally and conjunctivae normal CONJUNCTIVA: Yes conjunctivae normal PUPIL: Yes Equal, round and reactive pupils present EOM: No Nystagmus present Neck/C-Spine: COMMON NORMALS: full ROM, no lymphadenopathy, no JVD and No carotid bruits Chest: COMMONS NORMALS: normal inspection of the chest Resp: COMMON NORMALS: normal respiratory effort, No retractions and clear to auscultation bilaterally AUSCULTATION: clear to auscultation bilaterally Cardio: COMMON NORMALS: no JVD, regular rate, regular rhythm, No murmurs present (Cardio) and Peripheral pulses 2+ throughout RATE: regular rate RHYTHM: regular rhythm PERIPHERAL PULSES: Peripheral pulses 2+ throughout GI: COMMON NORMALS: Normal to inspection, nondistended, normoactive bowel sounds present and Soft to palpation PALPATION: Yes Soft to palpation : COMMON NORMALS: Yes no CVA tenderness BLADDER/KIDNEY EXAM: Yes no CVA tenderness Back/Pelvis: COMMON NORMALS: no CVA tenderness, thoracic and lumbar spine normal to inspection, no thoracic nor lumbar tenderness, thoraco-lumbar ROM normal and straight leg raise negative bilaterally Extremity: COMMON NORMALS: normal to inspection, full ROM, capillary refill normal, no calf tenderness and no pedal edema Neuro: COMMON NORMALS: patient oriented x3, moves all extremities, no focal motor deficits and no sensory deficits noted SENSORIUM/ORIENTATION: Yes oriented to person and Yes oriented to place CRANIAL NERVES: Yes CN normal except as noted COORDINATION/BALANCE: [id number]-[id number] test normal, krco-dc-quiv test normal and does not sway with eyes open GAIT: Yes Normal gait present COORDINATION: fqxxvb-xw-fvlh test normal, soxw-zc-vdzb test normal and does not sway with eyes open OTHER: Patient was able to ambulate unaided nkwi-iie-[id number] the length of the cot and turning and returning to her position of start. [employer]Hall[employer] maneuver did not reproduce symptoms. Skin: COMMON NORMALS: no rashes or lesions noted GENERAL SKIN EXAM: no rashes or lesions noted Course Reevaluation(s): Reevaluation #1: Patient continues to do well without any discomfort at this time. She has not had any abnormal rhythms throughout her emergency department stay her biomarkers and resting EKGs were also reassuring. No evidence at this time to suggest ACS or other worrisome condition. She is at low risk for thromboembolic disease and PERC negative. Family now present states that she has been coughing quite a bit from upper respiratory infection recently and they wonder if that may have contributed to her chest pain symptoms today. Time: 18:00 Vital Signs: Vital signs: Vital Signs Temperature 98.3 F 12/03/23 14:46 Pulse Rate 74 05/09/23 17:02 Respiratory Rate 18 05/09/23 14:46 Blood Pressure 108/77 05/09/23 17:02 Pulse Oximetry 99 05/09/23 17:02 Oxygen Delivery Me thod Room Air 05/09/23 17:02 MDM - Chest Pain Medical Decision Making Patient who presented from her domicile with concerns about epigastric and lower chest pain today. She has had nonproductive cough for several days but no fevers chills or shortness of breath. No history of coronary artery disease or cardiovascular disease, pulm cardiopulmonary disease, thromboembolic disease etc. Her clinical examination was reassuring without any focal findings. This included her neurologic examination which included her neurologic examination because of her transit subjective dizziness. Workup ensued to ensure no evidence of occult ACS, pneumonia etc. Her serial biomarkers are reassuring, chest x-ray is reassuring, serial monitoring of her heart throughout her emergency department stay did not reveal any evidence of arrhythmia. She remained clinically stable as well as hemodynamically stable and asymptomatic and desired to be discharged. Certainly at this time there is no strong evidence to suggest a ongoing emergency medical condition. We discussed findings and their limitations with both patient and family who arrived later in her visit. We also discussed that she may need ambulatory monitoring or additional testing should she develop symptoms of palpitations or other suggestion of heart rhythm issues. They voiced understanding of her discussion and were appreciative of care. We also discussed return precautions. Lab Data I reviewed the patient's lab results. 05/09/23 15:30 05/09/23 15:30 Radiology Impressions Chest X-Ray 05/09/23 15:00 IMPRESSION: No acute findings. Laboratory Results WBC 9.24 10^3/uL (3.29-11.43) 05/09/23 15:30 RBC 4.58 10^6/uL (3.85-5.65) 05/09/23 15:30 Hgb 13.90 g/dL (11.27-16.99) 05/09/23 15:30 Hct 43.2 % (36-47) 05/09/23 15:30 MCV 94.3 fl (85-98) 05/09/23 15:30 MCH 30.3 pg (27-33) 05/09/23 15:30 MCHC 32.2 g/dL (30-55) 05/09/23 15:30 RDW 13.2 % (12.1-15.1) 05/09/23 15:30 Plt Count 214 10^3/cmm (157-399) 05/09/23 15:30 MPV 11.0 fL (7.4-10.4) H 05/09/23 15:30 Neut % (Auto) 53.8 % 05/09/23 15:30 Lymph % (Auto) 32.0 % 05/09/23 15:30 [place] % (Auto) 7.9 % 05/09/23 15:30 Eos % (Auto) 5.0 % 05/09/23 15:30 Baso % (Auto) 0.9 % 05/09/23 15:30 Neut # (Auto) 4.97 10^3/uL (1.8-7.7) 05/09/23 15:30 Lymph # (Auto) 3.0 10^3/uL (0.8-4.8) 05/09/23 15:30 [place] # (Auto) 0.7 10^3/uL (0.2-0.9) 05/09/23 15:30 Eos # (Auto) 0.5 10^3/uL (0.0-0.8) 05/09/23 15:30 Baso # (Auto) 0.1 10^3/uL (0.0-0.1) 05/09/23 15:30 Nucleated RBC % (auto) 0 % 05/09/23 15: Nucleated RBCs # 0.0 /100WBC 05/09/23 15:30 Sodium 135 mmol/L (136-145) L 05/09/23 15:30 Potassium 4.4 mmol/L (3.5-5.1) 05/09/23 15:30 Chloride 101 mmol/L (98-107) 05/09/23 15:30 Carbon Dioxide 20 mmol/L (22-29) L 05/09/23 15:30 Anion Gap 18.4 (5-19) 05/09/23 15:30 BUN 19 mg/dL (6-20) 05/09/23 15:30 Creatinine 1.0 mg/dL (0.5-0.9) H 05/09/23 15:30 GFR Calculation 62.4 mL/min (90-130) L 05/09/23 15:30 Glucose 143 mg/dL (65-115) H 05/09/23 15:30 POC Glucose 158 mg/dL (70-110) H 05/09/23 14:51 Calculated Osmolality 285 mOsm/kg (285-295) 05/09/23 15:30 Calcium 9.9 mg/dL (8.5-10.5) 05/09/23 15:30 Total Bilirubin 0.3 mg/dL (0.15-1.2) 05/09/23 15:30 AST 14 U/L (0-32) 05/09/23 15:30 ALT 8 U/L (0-33) 05/09/23 15:30 Alkaline Phosphatase 62 U/L (35-105) 05/09/23 15:30 Troponin T Baseline < 6 ng/L (0-10) 05/09/23 15:30 Troponin T 120 Minute 6.00 ng/L (0-10) 05/09/23 17:18 Delta Troponin T 0.67767 ABS# (0-10) 05/09/23 17:18 Total Protein 7.0 g/dL (6.6-8.7) 05/09/23 15:30 Albumin 4.2 g/dL (3.5-5.2) 05/09/23 15:30 Globulin 2.8 g/dL (1.3-4.6) 05/09/23 15:30 Lipase 15 U/L (13-60) 05/09/23 15:30 All radiology interpretation(s) finalized by discharge EKG Data EKG 1: I personally reviewed and interpreted this EKG as follows: Interpretation: Contemporaneous review of resting EKG reveals a ventricular rate of 79 bpm. NH interval, QRS duration as well as corrected QT interval are all normal. Normal axis. No acute ST-T wave changes noted at this time. Computer generated interpretation: Second EKG reviewed contemporaneously this visit. Reveals ventricular rate of 74 bpm. Normal NH interval, QRS duration, corrected QT interval. Normal axis. No acute ST-T wave changes and unchanged from prior tracing. Discharge Plan Discharge Patient Disposition: Home Clinical Impression: Chest pain Qualifiers: Chest pain type: unspecified Qualified Code(s): R07.9 - Chest pain, unspecified Condition: Stable Prescriptions: No Action cholecalciferol (vitamin D3) 50 mcg (2,000 unit) capsule 50 mcg PO DAILY iron 18 mg tablet 18 mg PO DAILY fluticasone propionate [Flonase Allergy Relief] 50 mcg/actuation spray,suspension 1 spray intranasal DAILY Rx Instructions: administer into each nostril Humalog KwikPen Insulin 100 unit/mL insulin pen See Rx Instructions .ROUTE .COMPLEX MDD 20 42 Days Qty: 15 0RF Rx Instructions: sliding scale 141-180 0units;181-220 2units;221-260 4units;940-096-2sxrna;867-150-9dcxff;351-400-10 units ondansetron 4 mg tablet,disintegrating 4 mg PO Q8H PRN (Reason: nausea and vomiting) Qty: 30 0RF Lantus Solostar U-100 Insulin 100 unit/mL (3 mL) insulin pen See Rx Instructions SUBCUT BID Qty: 40 0RF Rx Instructions: 25 units qam and 15 units qpm subcutaneously; albuterol sulfate 90 mcg/actuation HFA aerosol inhaler 2 puff INHALATION Q6H PRN (Reason: shortness of breath or wheezing) Qty: 8.5 0RF levothyroxine 125 mcg capsule 125 mcg PO DAILY Qty: 30 0RF sertraline 25 mg tablet 25 mg PO DAILY Glucagon (HCl) Emergency Kit 1 mg recon soln 1 mg IM Q20M PRN (Reason: hypoglycemia) Qty: 1 0RF Rx Instructions: until target blood sugar attained (DME) glucometer testing kit See Rx Instructions .Route .MEDSULY Qty: 1 0RF Rx Instructions: Glucometer testing kit Lancets #100 Strips #100 Discharge Orders: Discharge ED (Routine); Ordered 05/09/23 Ordered By: Keyur Fuentes Referrals: Shanti Lee DO [Primary Care Provider] - Discharge Diet: Usual diet Discharge Activity: Resume usual activity Patient Instructions: Opioid Safety, Pain Management Activity Restrictions/Additional Instructions: As we discussed while you are in the emergency department there were no findings this evening that suggest a serious condition. Chest pain may have been due to several causes but certainly does not appear to be a heart related cause this evening. Your recent episodes of coughing may have caused some chest wall discomfort or pain. This being said if you develop sustained chest pain, fevers, difficulty breathing or any other concerning symptoms return to this or the nearest emergency department immediately for reevaluation continue all your usual medications as prescribed. 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
[2023-05-09] MEDS: sodium chloride 0.9% 1,000 ML 999 ML IV (15:21)
[2023-05-09] MEDS: famotidine 20 mg/2 mL INJ IVP (15:21)
[2023-05-09 15:47] LABS: Basophils # 0.1 10^3/uL (0.0-0.1); Basophils % 0.9 %; Eosinophils # 0.5 10^3/uL (0.0-0.8); Hematocrit 43.2 % (36-47); Mean Corpuscular HGB Conc 32.2 g/dL (30-55); Mean Corpuscular Hemoglobin 30.3 pg (27-33); Mean Corpuscular Volume 94.3 fl (85-98); Monocytes # 0.7 10^3/uL (0.2-0.9); Monocytes % 7.9 %; Neutrophils # 4.97 10^3/uL (1.8-7.7); Neutrophils % 53.8 %; Nucleated Red Blood Cells % 0 %; Platelet Count 214 10^3/cmm (157-399); Red Blood Count 4.58 10^6/uL (3.85-5.65); Red Cell Distribution Width 13.2 % (12.1-15.1); White Blood Count 9.24 10^3/uL (3.29-11.43)
[2023-05-09 16:04] LABS: Troponin(5th) Baseline < 6 ng/L (0-10)
[2023-05-09 16:26] LABS: Alanine Aminotransferase 8 U/L (0-33); Albumin Level 4.2 g/dL (3.5-5.2); Alkaline Phosphatase 62 U/L (35-105); Aspartate Amino Transferase 14 U/L (0-32); Blood Urea Nitrogen 19 mg/dL (6-20); Calcium 9.9 mg/dL (8.5-10.5); Carbon Dioxide 20 mmol/L (22-29); Chloride 101 mmol/L (98-107); Globulin 2.8 g/dL (1.3-4.6); Glomerular Filtration Rate 62.4 mL/min (90-130); Glucose 143 mg/dL (65-115); Lipase 15 U/L (13-60); Osmolality Calculated 285 mOsm/kg (285-295); Sodium 135 mmol/L (136-145); Total Bilirubin 0.3 mg/dL (0.15-1.2)
[2023-05-09 16:28] LABS: Anion Gap 18.4 (5-19); Potassium 4.4 mmol/L (3.5-5.1)
--- NOTE | 2023-05-09 17:00 | ECG_ITS ---
[facility] Test Date: 2023-05-09 Pat Name: Ling Humphrey Department: Room: Gender: Female Belly Roller: : 1985 Requested By: Keyur Fuentes Order Number: [id number] Collette MD: Zahra Edwards M.D. Measurements Intervals [place] Rate: 74 P: 53 OR: 152 QRS: 40 QRSD: 66 T: 60 QT: 370 QTc: 412 Interpretive Statements SINUS RHYTHM Compared to ECG 05/09/2023 14:43:51 No significant changes Electronically Signed On 05-09-2023 21:33:06 [employer]AGE LAB[employer]ER by Zahra Edwards M.D. [id number]
[2023-05-09 17:02] VITALS: BP 108/77; PULSE 74; O2SAT 99
[2023-05-09 17:54] LABS: Troponin 5 2HR Delta 0.00001 ABS# (0-10)
[2023-05-09 18:15] VITALS: BP 108/77; PULSE 76; O2SAT 99
== END 2023-05-09 18:17 | disposition home or self-care (01) ==
PROVIDERS: Emergency Provider Emergency Medicine; PCP Family Medicine
DX: R07.9 Chest pain, unspecified (principal); Z79.4 Long term (current) use of insulin; F17.210 Nicotine dependence, cigarettes, uncomplicated; E10.9 Type 1 diabetes mellitus without complications
CPT/HCPCS: 36415; 36416; 71045; 80053; 82962; 83690; 84484; 85025; 93005; 96361; 96374; 99285; J3490; J7030

== ENCOUNTER 2023-07-09 09:08 | Emergency (ER) | payer MEDICAID, SELFPAY ==
[2023-01-25 11:37] VITALS: BP 105/74; BMI 26.6
[2023-07-09] VITALS (8 sets, daily range): BP systolic 87–100; BP diastolic 49–72; PULSE 90–102; RESP 20; TEMP 36.9; O2SAT 95–100; BMI 28.3
[2023-07-09 09:16] LABS: Glucose Point of Care 343 mg/dL (70-110)
--- NOTE | 2023-07-09 09:32 | XR_ITS ---
WS: [id number] Portable AP upright chest, 07/09/2023 Clinical Data: dyspnea/cough Comparison: Portable chest, 05/09/2023 Findings: No nodules, masses or effusions are seen. The heart is normal. The pulmonary vascularity is not increased. No pneumonia or pneumothorax is seen. There are monitor leads on the chest wall. Impression: Negative chest.
--- NOTE | 2023-07-09 09:39 | W.ED.NAVMDI ---
HPI - Nausea/Vomiting/Diarrhea General: Chief complaint: Nausea/Vomiting/Diarrhea Stated complaint: high glucose Time Seen by Provider: 07/09/23 09:13 Source: patient Mode of arrival: EMS History of Present Illness: 37-year-old female who presents to the emergency room with elevated blood sugar with persistent nausea vomiting has not been feeling well for the last several days. Has a difficult time with fluid intake she denies fever sweats chills dysuria urgency or frequency no productive cough. MD elicited complaint: nausea and vomiting Associated symtoms: Denies chest pain or dysuria Review of Systems Const: Denies: fever(s) or chills Card: Denies: chest pain Resp: Denies: dyspnea GI: Denies: abdominal pain : Denies: dysuria, urinary frequency or urinary urgency Musc: Denies: neck pain or back pain Skin/Breast: Denies: rash PFSH ED PFSH: Medical History Psychiatric care Methamphetamine abuse Psychiatric disorder Hypothyroidism Type 1 diabetes mellitus Surgical History H/O section H/O tubal ligation H/O kidney removal LEFT SIDE Family History Father Lung cancer Social History Smoking and tobacco/nicotine status: current every day tobacco/nicotine user cigarettes Packs smoked per day: 1 Years cigarettes smoked: 13 Quit status (tobacco/nicotine): not considering quitting Second hand smoke exposure: Yes Alcohol intake: current Alcohol intake frequency: holidays/special occasions only Substance/Drug Use: former Date of last use: 04/03/23 Adopted: No 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) Lives independently: No Household members: other Details: lives at [facility] Housing: House Marital status: Number of children: 2 Number of grandchildren: 0 Highest education level completed: High School Graduate Education level 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, Med.Tech service: No Current occupational status: unemployed Current occupational exposures/hazards: No Pets and animals: No Leisure activites: volunteer work Sexually active: No Do you think of yourself as: Straight/Heterosexual Current gender identity: Female Flavia/Jainism: Yazdanism Special flavia needs: No Female Reproductive History: Para: 2 Spontaneous abortions: No Physical Exam Const: COMMON NORMALS: no acute distress GENERAL APPEARANCE: cooperative and comfortable ORIENTATION/CONSCIOUSNESS: Yes awake, Yes oriented to person, Yes oriented to place and Yes oriented to time HENMT: COMMON NORMALS: normocephalic, atraumatic and hearing grossly normal bilaterally HEAD & SCALP: normocephalic and atraumatic Resp: COMMON NORMALS: normal respiratory effort, No retractions, No use of accessory muscles and clear to auscultation bilaterally AUSCULTATION: clear to auscultation bilaterally Cardio: COMMON NORMALS: regular rate, regular rhythm and No murmurs present (Cardio) RATE: regular rate RHYTHM: regular rhythm GI: COMMON NORMALS: Soft to palpation and No hepatosplenomegaly present AUSCULTATION: Yes normoactive bowel sounds PALPATION: Yes Soft to palpation, No Tenderness to palpation present (GI), No Guarding due to palpation present (GI) and Yes No hepatosplenomegaly present Extremity: COMMON NORMALS: normal to inspection, capillary refill normal, no clubbing, cyanosis or edema, no calf tenderness and no pedal edema Neuro: SENSORIUM/ORIENTATION: Yes oriented to person, Yes oriented to place and Yes oriented to time Skin: COMMON NORMALS: no rashes or lesions noted GENERAL SKIN EXAM: no rashes or lesions noted Course Vital Signs: Vital signs: Vital Signs Temperature 98.4 F 07/09/23 09:11 Pulse Rate 99 07/09/23 11:00 Respiratory Rate 20 H 07/09/23 10:37 Blood Pressure 97/62 07/09/23 11:00 Pulse Oximetry 97 07/09/23 11:00 Oxygen Delivery Me thod Room Air 07/09/23 11:00 MDM - Nausea/Vomiting/Diarrhea Medical Decision Making Glucose improved with insulin and fluids. Patient is anxious, she is feeling much better she has not had any more nausea or vomiting. Discharge her home with ondansetron to use as needed if has recurrence of symptoms. Remainder of her other lab work did not show significant abnormality she had no leukocytosis. Glucose was elevated she had some mild hyponatremia which corrects with her hyperglycemia. Her anion gap was normal liver functions unremarkable. Urine did not show significant UTI. Follow-up with primary care clear liquid diet for next 24 to 48 hours and advance as tolerated if symptoms recur or persist she can return to the emergency room. Monitor blood sugars closely. Medical Records I reviewed the patient's medical records. Lab Data I reviewed the patient's lab results. 07/09/23 10:22 07/09/23 10:22 Laboratory Results WBC Cancelled 07/09/23 10:22 Corrected WBC Cancelled 07/09/23 10:22 RBC Cancelled 07/09/23 10:22 Hgb Cancelled 07/09/23 10:22 Hct Cancelled 07/09/23 10:22 MCV Cancelled 07/09/23 10:22 MCH Cancelled 07/09/23 10:22 MCHC Cancelled 07/09/23 10:22 RDW Cancelled 07/09/23 10:22 Plt Count Cancelled 07/09/23 10:22 MPV Cancelled 07/09/23 10:22 Gran % Cancelled 07/09/23 10:22 Neut % (Auto) Cancelled 07/09/23 10:22 Lymph % (Auto) Cancelled 07/09/23 10:22 Harrison % (Auto) Cancelled 07/09/23 10:22 Eos % (Auto) Cancelled 07/09/23 10:22 Baso % (Auto) Cancelled 07/09/23 10:22 Neut # (Auto) Cancelled 07/09/23 10:22 Lymph # (Auto) Cancelled 07/09/23 10:22 Harrison # (Auto) Cancelled 07/09/23 10:22 Eos # (Auto) Cancelled 07/09/23 10:22 Baso # (Auto) Cancelled 07/09/23 10:22 Absolute Gran (auto) Cancelled 07/09/23 10:22 Nucleated RBC % (auto) Cancelled 07/09/23 10:22 Nucleated RBCs # Cancelled 07/09/23 10:22 Sodium 127 mmol/L (136-145) L 07/09/23 10:22 Potassium 4.8 mmol/L (3.5-5.1) 07/09/23 10:22 Chloride 95 mmol/L (98-107) L 07/09/23 10:22 Carbon Dioxide 22 mmol/L (22-29) 07/09/23 10:22 Anion Gap 14.8 (5-19) 07/09/23 10:22 BUN 16 mg/dL (6-20) 07/09/23 10:22 Creatinine 0.9 mg/dL (0.5-0.9) 07/09/23 10:22 GFR Calculation 70.5 mL/min (90-130) L 07/09/23 10:22 Glucose 345 mg/dL (65-115) H 07/09/23 10:22 POC Glucose 231 mg/dL (70-110) H 07/09/23 12:18 Calculated Osmolality 279 mOsm/kg (285-295) L 07/09/23 10:22 Calcium 8.3 mg/dL (8.5-10.5) L 07/09/23 10:22 Total Bilirubin 0.2 mg/dL (0.15-1.2) 07/09/23 10:22 AST 32 U/L (0-32) 07/09/23 10:22 ALT 21 U/L (0-33) 07/09/23 10:22 Alkaline Phosphatase 54 U/L (35-105) 07/09/23 10:22 Total Protein 7.2 g/dL (6.6-8.7) 07/09/23 10:22 Albumin 3.8 g/dL (3.5-5.2) 07/09/23 10:22 Globulin 3.4 g/dL (1.3-4.6) 07/09/23 10:22 Lipase 22 U/L (13-60) 07/09/23 10:22 HCG, Qual Negative (Negative) 07/09/23 10:22 Urine Color Yellow (Yellow) 07/09/23 09:55 Urine Appearance Clear (CLEAR) 07/09/23 09:55 Urine pH 5 (5-7) 07/09/23 09:55 Ur Specific [place] 1.015 (1.005-1.030) 07/09/23 09:55 Urine Protein Trace (Negative) 07/09/23 09:55 Urine Glucose (UA) 4+ (Normal) H 07/09/23 09:55 Urine Ketones Negative (Negative) 07/09/23 09:55 Urine Blood 2+ (Negative) H 07/09/23 09:55 Urine Nitrate Negative (Negative) 07/09/23 09:55 Urine Bilirubin Neg (Negative) 07/09/23 09:55 Urine Urobilinogen Norm mg/dL (Negative) 07/09/23 09:55 Ur Leukocyte Esterase Negative (Negative) 07/09/23 09:55 Urine RBC 0-4 /hpf (0-2) H 07/09/23 09:55 Urine WBC 0-4 /hpf (0-5) H 07/09/23 09:55 Ur Squamous Epith Cells 0-4 /hpf (0-5) H 07/09/23 09:55 Amorphous Sediment Not Reportable 07/09/23 09:55 Urine Bacteria Trace /hpf (NONE) 07/09/23 09:55 Serum Ketones Negative (Negative) 07/09/23 10:22 All radiology interpretation(s) finalized by discharge Discharge Plan Discharge Patient Disposition: Home Clinical Impression: Hyperglycemia, Nausea & vomiting Condition: Stable Prescriptions: New ondansetron HCl 4 mg tablet 4 mg PO Q6H PRN (Reason: nausea and vomiting) Qty: 20 0RF No Action cholecalciferol (vitamin D3) 50 mcg (2,000 unit) capsule 50 mcg PO Q7D Rx Instructions: on wed fluticasone propionate [Flonase Allergy Relief] 50 mcg/actuation spray,suspension 2 spray intranasal DAILY PRN (Reason: Allergy Symptoms) Rx Instructions: administer into each nostril Lantus Solostar U-100 Insulin 100 unit/mL (3 mL) insulin pen See Rx Instructions SUBCUT BID Qty: 40 0RF Rx Instructions: 30 units qam and 15 units at bedtime Humalog KwikPen Insulin 100 unit/mL insulin pen See Rx Instructions .ROUTE .COMPLEX MDD 20 42 Days Qty: 15 0RF Rx Instructions: sliding scale tid as directed 141-180=0 units;181-220=2 units;221-260 4 units;261-300-6 units;301-350-8 units;351-400-10 units (max 20 units per day) albuterol sulfate 2.5 mg /3 mL (0.083 %) solution for nebulization 2.5 mg inhalation .EVERY 4-6 HOURS PRN (Reason: Wheezing) Allergy Relief (cetirizine) 10 mg tablet 10 mg PO DAILY iron 325 mg (65 mg iron) Tablet 325 mg PO DAILY levothyroxine 125 mcg tablet 125 mcg PO QAM mirtazapine 15 mg tablet 15 mg PO BEDTIME albuterol sulfate 90 mcg/actuation HFA aerosol inhaler 2 puff INHALATION .EVERY 4-6 HOURS PRN (Reason: shortness of breath or wheezing) sertraline 50 mg tablet 50 mg PO QAM glucagon HCl [Glucagon (HCl) Emergency Kit] 1 mg recon soln 1 mg IM Q20M PRN (Reason: hypoglycemia) Qty: 1 0RF Rx Instructions: until target blood sugar attained (DME) glucometer testing kit See Rx Instructions .Route .MEDSUPPLY Qty: 1 0RF Rx Instructions: Glucometer testing kit Lancets #100 Strips #100 Discharge Orders: Discharge ED (Routine); Ordered 07/09/23 Ordered By: Candido Deras Referrals: Shanti Lee DO [Primary Care Provider] - Discharge Diet: Diabetic Discharge Activity: Increase activity as tolerated Patient Instructions: Opioid Safety, Pain Management Activity Restrictions/Additional Instructions: Thank you for choosing [facility] for your healthcare needs today. Please realize this is an emergency room and that we are providing you with a medical screening exam and this may not be complete and all inclusive of all the testing and or work up that you may need to determine your ailment or severity of your illness. It is very important that you follow up as instructed or that you return to the Emergency Department should you have concerns or if your condition changes or worsens in any way. You were seen today for persistent nausea vomiting with elevated blood sugars. Your symptoms improved with control of your blood sugar and IV fluids and antiemetics. Recommend clear liquid diet for the next 24 to 48 hours then advance as tolerated. Monitor blood sugars closely. You are given a prescription for ondansetron to use if you have recurrent nausea or vomiting. If your symptoms return or worsen or not controlled or your blood sugars are not controlled return to the emergency room. Coding Level of Care Code ED Bi Report Developer for 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
[2023-07-09] MEDS: sodium chloride 0.9% 1,000 ML 999 ML IV (09:44)
[2023-07-09] MEDS: dexamethasone 10 mg/mL INJ IM (09:53)
[2023-07-09 10:36] LABS: Add Urine Microscopic? YES; Bilirubin Urine Neg (Negative); Blood Urine 2+ (Negative); Glucose Urine UA 4+ (Normal); Ketones Urine Negative (Negative); Leukocyte Esterase Urine Negative (Negative); Nitrate Urine Negative (Negative); Protein Urine Trace (Negative); Specific Gravity, Urine 1.015 (1.005-1.030); Urine Appearance Clear (CLEAR); Urine Color Yellow (Yellow); Urobilinogen Urine Norm (Negative); pH Urine 5 (5-7)
[2023-07-09] MEDS: ipratropium-albuterol 3 mL Neb INHALATION (10:36)
[2023-07-09 10:37] LABS: Add Urine Culture? No; Bacteria Urine TRACE /hpf; RBC Urine 0-4 /hpf (0-2); Squamous Epithelial Cell Urine 0-4 /hpf (0-5); WBC Urine 0-4 /hpf (0-5)
--- NOTE | 2023-07-09 10:41 | PC.PHAR ---
pt states she takes care of her own medications-pt states she takes the medications entered
[2023-07-09 11:01] LABS: Ketone (Acetest) Serum Negative (Negative)
[2023-07-09 11:03] LABS: HCG, Serum Qual Negative (Negative)
[2023-07-09 11:04] LABS: Alanine Aminotransferase 21 U/L (0-33); Albumin Level 3.8 g/dL (3.5-5.2); Alkaline Phosphatase 54 U/L (35-105); Anion Gap 14.8 (5-19); Aspartate Amino Transferase 32 U/L (0-32); Blood Urea Nitrogen 16 mg/dL (6-20); Calcium 8.3 mg/dL (8.5-10.5); Carbon Dioxide 22 mmol/L (22-29); Chloride 95 mmol/L (98-107); Creatinine Clr Calc Pharmacy 81.6998; Globulin 3.4 g/dL (1.3-4.6); Glomerular Filtration Rate 70.5 mL/min (90-130); Glucose 345 mg/dL (65-115); Lipase 22 U/L (13-60); Osmolality Calculated 279 mOsm/kg (285-295); Potassium 4.8 mmol/L (3.5-5.1); Sodium 127 mmol/L (136-145); Total Bilirubin 0.2 mg/dL (0.15-1.2); Total Protein 7.2 g/dL (6.6-8.7)
[2023-07-09] MEDS: insulin regular-human 100 units/1 mL 10 UNIT IVP (11:07)
[2023-07-09 12:21] LABS: Glucose Point of Care 231 mg/dL (70-110)
== END 2023-07-09 12:59 | disposition home or self-care (01) ==
PROVIDERS: Emergency Provider Family Medicine; PCP Family Medicine
DX: R11.2 Nausea with vomiting, unspecified (principal); E10.65 Type 1 diabetes mellitus with hyperglycemia; F17.210 Nicotine dependence, cigarettes, uncomplicated; Z79.4 Long term (current) use of insulin
CPT/HCPCS: 36415; 36416; 71045; 80053; 81001; 82009; 82962; 83690; 84703; 85025; 94640; 96361; 96372; 96374; 99284; J1100; J1815; J7030

== ENCOUNTER → 2023-07-10 12:28 | Outpatient (BNVA) | payer MEDICAID, SELFPAY ==
[2023-01-25 11:37] VITALS: BP 105/74; BMI 26.6
== END ==
PROVIDERS: PCP Family Medicine; Visit Provider Nurse Practitioner
DX: R50.9 Fever, unspecified (principal)
CPT/HCPCS: 87400; 87426

== ENCOUNTER 2024-03-13 20:27 | Emergency (ER) | payer MEDICAID, SELFPAY ==
[2023-01-25 11:37] VITALS: BP 105/74; BMI 26.6
[2024-03-13 20:28] VITALS: BP 120/79; PULSE 70; RESP 16; TEMP 36.7; O2SAT 100; BMI 27.4
[2024-03-13 21:56] LABS: Bilirubin Urine Negative (Negative); Blood Urine 2+ (Negative); Glucose Urine UA Negative (Normal); Ketones Urine Negative (Negative); Leukocyte Esterase Urine Negative (Negative); Nitrate Urine Negative (Negative); Protein Urine Negative (Negative); Specific Gravity, Urine 1.007 (1.005-1.030); Urine Appearance Clear (CLEAR); Urine Color Yellow (Yellow); Urobilinogen Urine 0.2 mg/dL (Negative); pH Urine 6.5 (5-7)
[2024-03-13 22:04] LABS: Add Urine Microscopic? YES; Bacteria Urine None Seen /hpf; Hyaline Casts Urine 0-4 /lpf; RBC Urine 0-2 /hpf (0-2); Squamous Epithelial Cell Urine 0-5 /hpf (0-5); WBC Urine 0-5 /hpf (0-5)
[2024-03-13] MEDS: metoclopramide 5 mg/mL SDV 2 mL 10 MG IM (22:11)
[2024-03-13 22:12] LABS: Basophils # 0.1 10^3/uL (0.0-0.1); Basophils % 0.8 %; Eosinophils # 0.2 10^3/uL (0.0-0.8); Eosinophils % 2.1 %; Hematocrit 40.7 % (36-47); Lymphocytes # 4.5 10^3/uL (0.8-4.8); Lymphocytes % 44.2 %; Mean Corpuscular HGB Conc 32.9 g/dL (30-55); Mean Corpuscular Hemoglobin 30.5 pg (27-33); Mean Corpuscular Volume 92.7 fl (85-98); Mean Platelet Volume 10.2 fL (7.4-10.4); Monocytes # 0.6 10^3/uL (0.2-0.9); Monocytes % 5.7 %; Nucleated Red Blood Cells % 0 %; Platelet Count 377 10^3/cmm (157-399); Red Blood Count 4.39 10^6/uL (3.85-5.65); Red Cell Distribution Width 11.9 % (12.1-15.1); White Blood Count 10.19 10^3/uL (3.29-11.43)
--- NOTE | 2024-03-13 22:24 | ED_ITS ---
HPI - Nausea/Vomiting/Diarrhea 2 General: Chief complaint: Nausea/Vomiting/Diarrhea Stated complaint: N/V Time Seen by Provider: 03/13/24 21:14 Source: patient Mode of arrival: ambulatory Limitations: no limitations History of Present Illness: Patient is a 38-year-old female with history of diabetes on insulin who presents to the emergency department complaining of nausea and vomiting today. States she was in the ICU up at [facility] last and Wednesday for hyponatremia, states that she was not in DKA but her blood sugars were greater than 700. She says that she was told to present back to the emergency department with any recurrence of high sugars or if she has any nausea or vomiting. States that today she has to many episodes of vomiting to count. She also is reporting some abdominal pain from throwing up. She is denying any chest pain, shortness of breath, fevers, or other symptoms. She states her last A1c was 14. Also states that she has an appointment with her sheet sewer in the morning. MD elicited complaint: nausea and vomiting Pertinent past history: other (Diabetes) Onset (ago): hour(s) Associated nausea: Yes Associated abdominal pain: Yes Location of pain: Epigastric Associated symtoms: Reports nausea; Denies chest pain, diaphoresis, dizziness, dysuria, headache(s) or palpitations Related Data Home Medications Medication Instructions Recorded Confirmed cholecalciferol (vitamin D3) 50 50 mcg PO Q7D 04/07/23 01/20/24 mcg (2,000 unit) capsule fluticasone propionate 50 2 spray intranasal DAILY PRN 04/07/23 01/20/24 mcg/actuation nasal Allergy Symptoms spray,suspension (Flonase Allergy Relief) albuterol sulfate 2.5 mg/3 mL 2.5 mg inhalation .EVERY 4-6 HOURS 07/09/23 01/20/24 (0.083 %) solution for nebulization PRN Wheezing albuterol sulfate 90 mcg/actuation 2 puff inhalation .EVERY 4-6 HOURS 07/09/23 01/20/24 aerosol inhaler PRN shortness of breath or wheezing cetirizine 10 mg tablet (Allergy 10 mg PO DAILY 07/09/23 01/20/24 Relief (cetirizine)) Previous Rx's Medication Instructions Recorded glucagon HCl 1 mg solution for 1 mg IM Q20M PRN hypoglycemia #1 ea 03/31/23 injection (Glucagon (HCl) Emergency Kit) glucometer testing kit #1 ea 03/31/23 ondansetron HCl 4 mg tablet 4 mg PO Q6H PRN nausea and 07/09/23 vomiting #20 tabs ipratropium 0.5 mg-albuterol 3 mg 3 ml inhalation QID PRN wheezing 07/10/23 (2.5 mg base)/3 mL nebulization #90 mL soln mirtazapine 15 mg tablet 15 mg PO BEDTIME #30 tabs 11/22/23 levothyroxine 125 mcg tablet 125 mcg PO QAM #90 tabs 01/05/24 blood-glucose sensor (Dexcom G7 #3 ea 03/13/24 Sensor device) insulin glargine 100 unit/mL (3 See Rx Instructions .Route 03/13/24 mL) subcutaneous pen (Lantus .COMPLEX #15 mL Solostar U-100 Insulin) insulin lispro 100 unit/mL See Rx Instructions .Route 03/13/24 subcutaneous pen (Humalog KwikPen .COMPLEX 6 weeks #15 mL (U-100) Insulin) Allergies Allergy/AdvReac Type Severity Reaction Status Date / Time No Known Allergies Allergy Verified 01/20/24 06:43 Review of Systems 2 General: Reports: 10 or more systems reviewed and unremarkable except in HPI and below Const: Denies: fever(s), chills, change in appetite, change in weight or diaphoresis ENMT: Denies: throat pain or hoarseness Card: Denies: chest pain, palpitations or lightheadedness Resp: Denies: dyspnea, productive cough or wheezing GI: Reports: abdominal pain, nausea and vomiting; Denies: diarrhea : Denies: flank pain, difficulty voiding, dysuria, urinary frequency or urinary urgency Musc: Denies: neck pain or back pain Skin/Breast: Denies: rash or new lesions Neuro: Denies: headache(s) or dizziness PFSH ED 2 PFSH: Medical History Psychiatric care Methamphetamine abuse Psychiatric disorder Hypothyroidism Type 1 diabetes mellitus Surgical History H/O section H/O tubal ligation H/O kidney removal LEFT SIDE Family History Father Lung cancer Social History Smoking and tobacco/nicotine status: current every day tobacco/nicotine user cigarettes Packs smoked per day: 1 Years cigarettes smoked: 11 Quit status (tobacco/nicotine): not considering quitting Second hand smoke exposure: Yes Alcohol intake: former Former alcohol use details: 08.20.23 Substance/Drug Use: former Date of last use: 04/03/23 Adopted: No 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) Lives independently: No Household members: children and other Details: lives at [facility] - 6 women Housing: House Marital status: Number of children: 2 Number of grandchildren: 0 Highest education level completed: High School Graduate Education level details: 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, [employer] service: No Current occupational status: unemployed Current occupational exposures/hazards: No Pets and animals: No Leisure activites: reading and other Leisure activities details: 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, 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 Sexually active: No Do you think of yourself as: Straight/Heterosexual Current gender identity: Female Flavia/Evangelical: Mormon Special flavia needs: No Agree to transfusion: Yes Female Reproductive History: Para: 2 Spontaneous abortions: No Physical Exam 2 Const: COMMON NORMALS: no acute distress, average body habitus, patient oriented x3, no limitations, healthy appearing, alert and well nourished G ENERAL APPEARANCE: cooperative and comfortable ORIENTATION/CONSCIOUSNESS: Yes awake HENMT: COMMON NORMALS: normocephalic, atraumatic, hearing grossly normal bilaterally, external ears normal, Normal external nose present, Normal nasal mucous membranes and turbinates present and moist oral mucous membranes HEAD & SCALP: normocephalic and atraumatic NOSE: Normal external nose present and Normal nasal mucous membranes and turbinates present EXTERNAL EAR: Yes external ears normal Eye: COMMON NORMALS: Equal, round and reactive pupils present, EOMs intact bilaterally, conjunctivae normal and normal visual cotto by confrontation C ONJUNCTIVA: Yes conjunctivae normal PUPIL: Yes Equal, round and reactive pupils present Neck/C-Spine: COMMON NORMALS: full ROM, supple, no meningeal signs and no JVD Resp: COMMON NORMALS: normal respiratory effort, No retractions, No use of accessory muscles and clear to auscultation bilaterally AUSCULTATION: clear to auscultation bilaterally, no crackles, no rales, no rhonchi and no wheezes Cardio: COMMON NORMALS: no JVD, regular rate, regular rhythm, S1 normal heart sound present, S2 normal heart sound present, No gallops present (Cardio), No clicks present (Cardio), No murmurs present (Cardio), No rub (Cardio) and Peripheral pulses 2+ throughout RATE: regular rate RHYTHM: regular rhythm HEART SOUNDS: S1 normal heart sound present and S2 normal heart sound present PERIPHERAL PULSES: Peripheral pulses 2+ throughout GI: COMMON NORMALS: Normal to inspection, nondistended, normoactive bowel sounds present, Soft to palpation, non-tender, No hepatosplenomegaly present and no masses AUSCULTATION: Yes normoactive bowel sounds PALPATION: Yes Soft to palpation, No Guarding due to palpation present (GI), No Rigid due to palpation and Yes No hepatosplenomegaly present RECTAL EXAM: deferred Extremity: COMMON NORMALS: normal to inspection and full ROM Neuro: COMMON NORMALS: patient oriented x3, moves all extremities, no focal motor deficits and no sensory deficits noted SENSORIUM/ORIENTATION: Yes alert MENINGEAL SIGNS: Yes no meningeal signs Psych: COMMON NORMALS: mental status grossly normal, cooperative and speech normal SPEECH: Yes normal speech Skin: COMMON NORMALS: no rashes or lesions noted GENERAL SKIN EXAM: no rashes or lesions noted Course 2 Vital Signs: Vital signs: Vital Signs Temperature 98.0 F 03/13/24 20:28 Pulse Rate 75 03/13/24 23:58 Respiratory Rate 16 03/13/24 23:58 Blood Pressure 113/76 03/13/24 23:58 Pulse Oximetry 99 03/13/24 23:58 Oxygen Delivery Me thod Room Air 03/13/24 23:30 MDM - Nausea/Vomiting/Diarrhea Medical Decision Making Patient presented for nausea vomiting today. History of diabetes, noted to be poorly controlled due to her last A1c being greater than 14. Also of note she states she was in the ICU at [facility] for hyponatremia. No vomiting here in the emergency department today. She was given Reglan IM, as IV access was not established here. Her serum ketones are negative. Her CMP showed no depletion of electrolytes, and specifically her anion gap was normal. CBC unremarkable, and urinalysis unremarkable. After labs resulted, patient rechecked and states she feels significantly better. Coincidentally she also has a follow-up appointment in the morning with her sheet sewer, which she will keep and be further evaluated here. Discussed this patient with Dr. Owen who agrees with disposition, and patient agrees with discharge home. Reasons to return discussed. Lab Data 03/13/24 21:58 03/13/24 21:58 Laboratory Results WBC 10.19 10^3/uL (3.29-11.43) 03/13/24 21:58 RBC 4.39 10^6/uL (3.85-5.65) 03/13/24 21:58 Hgb 13.40 g/dL (11.27-16.99) 03/13/24 21:58 Hct 40.7 % (36-47) 03/13/24 21:58 MCV 92.7 fl (85-98) 03/13/24 21:58 MCH 30.5 pg (27-33) 03/13/24 21:58 MCHC 32.9 g/dL (30-55) 03/13/24 21:58 RDW 11.9 % (12.1-15.1) L 03/13/24 21:58 Plt Count 377 10^3/cmm (157-399) 03/13/24 21:58 MPV 10.2 fL (7.4-10.4) 03/13/24 21:58 Neut % (Auto) 47.0 % 03/13/24 21:58 Lymph % (Auto) 44.2 % 03/13/24 21:58 [place] % (Auto) 5.7 % 03/13/24 21:58 Eos % (Auto) 2.1 % 03/13/24 21:58 Baso % (Auto) 0.8 % 03/13/24 21:58 Neut # (Auto) 4.80 10^3/uL (1.8-7.7) 03/13/24 21:58 Lymph # (Auto) 4.5 10^3/uL (0.8-4.8) 03/13/24 21:58 [place] # (Auto) 0.6 10^3/uL (0.2-0.9) 03/13/24 21:58 Eos # (Auto) 0.2 10^3/uL (0.0-0.8) 03/13/24 21:58 Baso # (Auto) 0.1 10^3/uL (0.0-0.1) 03/13/24 21:58 Nucleated RBC % (auto) 0 % 03/13/24 21:58 Nucleated RBCs # 0.0 /100WBC 03/13/24 21:58 Sodium 137 mmol/L (136-145) 03/13/24 21:58 Potassium 3.7 mmol/L (3.5-5.1) 03/13/24 21:58 Chloride 97 mmol/L (98-107) L 03/13/24 21:58 Carbon Dioxide 26 mmol/L (22-29) 03/13/24 21:58 Anion Gap 17.7 (5-19) 03/13/24 21:58 BUN 18 mg/dL (6-20) 03/13/24 21:58 Creatinine 0.9 mg/dL (0.5-0.9) 03/13/24 21:58 GFR Calculation 70.1 mL/min (90-130) L 03/13/24 21:58 Glucose 65 mg/dL (65-115) 03/13/24 21:58 POC Glucose 62 mg/dL (70-110) L 03/13/24 22:34 Calculated Osmolality 284 mOsm/kg (285-295) L 03/13/24 21:58 Calcium 9.6 mg/dL (8.5-10.5) 03/13/24 21:58 Total Bilirubin 0.2 mg/dL (0.15-1.2) 03/13/24 21:58 AST 26 U/L (0-32) 03/13/24 21:58 ALT 16 U/L (0-33) 03/13/24 21:58 Alkaline Phosphatase 45 U/L (35-105) 03/13/24 21:58 Total Protein 8.0 g/dL (6.6-8.7) 03/13/24 21:58 Albumin 4.5 g/dL (3.5-5.2) 03/13/24 21:58 Globulin 3.5 g/dL (1.3-4.6) 03/13/24 21:58 Lipase 25 U/L (13-60) 03/13/24 21:58 Urine Color Yellow (Yellow) 03/13/24 21:44 Urine Appearance Clear (CLEAR) 03/13/24 21:44 Urine pH 6.5 (5-7) 03/13/24 21:44 Ur Specific [place] 1.007 (1.005-1.030) 03/13/24 21:44 Urine Protein Negative (Negative) 03/13/24 21:44 Urine Glucose (UA) Negative (Normal) 03/13/24 21:44 Urine Ketones Negative (Negative) 03/13/24 21:44 Urine Blood 2+ (Negative) A 03/13/24 21:44 Urine Nitrate Negative (Negative) 03/13/24 21:44 Urine Bilirubin Negative (Negative) 03/13/24 21:44 Urine Urobilinogen 0.2 mg/dL (Negative) 03/13/24 21:44 Ur Leukocyte Esterase Negative (Negative) 03/13/24 21:44 Urine RBC 0-2 /hpf (0-2) 03/13/24 21:44 Urine WBC 0-5 /hpf (0-5) 03/13/24 21:44 Ur Squamous Epith Cells 0-5 /hpf (0-5) 03/13/24 21:44 Amorphous Sediment Not Reportable 03/13/24 21:44 Urine Bacteria None seen /hpf (NONE) 03/13/24 21:44 Hyaline Casts 0-4 /lpf H 03/13/24 21:44 Serum Ketones Negative (Negative) 03/13/24 21:58 No radiology studies performed this visit Discharge Plan Discharge Patient Disposition: Home Clinical Impression: Nausea & vomiting Qualifiers: Vomiting type: unspecified Qualified Code(s): R11.2 - Nausea with vomiting, unspecified Condition: Stable Prescriptions: No Action ipratropium-albuterol 0.5 mg-3 mg(2.5 mg base)/3 mL solution for nebulization 3 ml inhalation QID PRN (Reason: wheezing) Qty: 90 0RF mirtazapine 15 mg tablet 15 mg PO BEDTIME Qty: 30 3RF cholecalciferol (vitamin D3) 50 mcg (2,000 unit) capsule 50 mcg PO Q7D Rx Instructions: on wed fluticasone propionate [Flonase Allergy Relief] 50 mcg/actuation spray,suspension 2 spray intranasal DAILY PRN (Reason: Allergy Symptoms) Rx Instructions: administer into each nostril levothyroxine 125 mcg tablet 125 mcg PO QAM Qty: 90 2RF Humalog KwikPen Insulin 100 unit/mL insulin pen See Rx Instructions .ROUTE .COMPLEX MDD 20 42 Days Qty: 15 1RF Rx Instructions: sliding scale tid as directed (max 20 units per day) Lantus Solostar U-100 Insulin 100 unit/mL (3 mL) insulin pen See Rx Instructions .ROUTE .COMPLEX Qty: 15 0RF Dose Instruction: INJECT 25 UNITS SUBCUTANEOUS EVERY MORNING AND 15 UNITS EVERY EVENING Rx Instructions: INJECT 25 UNITS SUBCUTANEOUS EVERY MORNING AND 15 UNITS EVERY EVENING (DME) Dexcom G7 Sensor Device See Rx Instructions .Route Qty: 3 1RF Rx Instructions: As directed albuterol sulfate 2.5 mg /3 mL (0.083 %) solution for nebulization 2.5 mg inhalation .EVERY 4-6 HOURS PRN (Reason: Wheezing) Allergy Relief (cetirizine) 10 mg tablet 10 mg PO DAILY albuterol sulfate 90 mcg/actuation HFA aerosol inhaler 2 puff INHALATION .EVERY 4-6 HOURS PRN (Reason: shortness of breath or wheezing) ondansetron HCl 4 mg tablet 4 mg PO Q6H PRN (Reason: nausea and vomiting) Qty: 20 0RF glucagon HCl [Glucagon (HCl) Emergency Kit] 1 mg recon soln 1 mg IM Q20M PRN (Reason: hypoglycemia) Qty: 1 0RF Rx Instructions: until target blood sugar attained (DME) glucometer testing kit See Rx Instructions .Route .MEDSUPPLY Qty: 1 0RF Rx Instructions: Glucometer testing kit Lancets #100 Strips #100 Discharge Orders: Discharge ED (Routine); Ordered 03/13/24 Ordered By: Howard Rosas Referrals: Shanti Lee DO [Primary Care Provider] - Discharge Diet: As Directed Discharge Activity: Increase activity as tolerated Patient Instructions: Acute Nausea and Vomiting (ED) Activity Restrictions/Additional Instructions: Please increase your fluid intake, take nausea medications at home. Follow-up with your sheet sewer in the morning as already planned. Keep monitoring your blood sugars and taking your diabetic medications as prescribed. Monitor your blood pressures at home and return with any new or worsening. Coding Level of Care Code ED [employer] Professional for Chg Fwd
[2024-03-13 22:25] LABS: Ketone (Acetest) Serum Negative (Negative)
[2024-03-13 22:27] VITALS: BP 104/65; PULSE 68; RESP 16; O2SAT 99
[2024-03-13 22:30] VITALS: PULSE 67; O2SAT 98
--- NOTE | 2024-03-13 22:31 | PC.NURSE ---
pt requesting drink and food, MARCO ANTONIO carter. snack and drink given to pt.
[2024-03-13 22:35] LABS: Alanine Aminotransferase 16 U/L (0-33); Albumin Level 4.5 g/dL (3.5-5.2); Alkaline Phosphatase 45 U/L (35-105); Anion Gap 17.7 (5-19); Aspartate Amino Transferase 26 U/L (0-32); Blood Urea Nitrogen 18 mg/dL (6-20); Calcium 9.6 mg/dL (8.5-10.5); Carbon Dioxide 26 mmol/L (22-29); Chloride 97 mmol/L (98-107); Creatinine Clr Calc Pharmacy 79.6928; Globulin 3.5 g/dL (1.3-4.6); Glomerular Filtration Rate 70.1 mL/min (90-130); Glucose 65 mg/dL (65-115); Lipase 25 U/L (13-60); Osmolality Calculated 284 mOsm/kg (285-295); Potassium 3.7 mmol/L (3.5-5.1); Sodium 137 mmol/L (136-145); Total Bilirubin 0.2 mg/dL (0.15-1.2)
[2024-03-13 22:39] LABS: Glucose Point of Care 62 mg/dL (70-110)
--- NOTE | 2024-03-13 22:48 | PC.NURSE ---
pt IV attempted 3 times, pt at this time wants no more pokes. MARCO ANTONIO Rosas notified. changed IVP med to IM, and hold NS bolus at this time.
[2024-03-13 23:00] VITALS: BP 89/61; PULSE 64; O2SAT 100
--- NOTE | 2024-03-13 23:25 | PC.NURSE ---
this nurse assumed pt care at 2320 from Danuta WATCH SUPERVISOR.
[2024-03-13 23:30] VITALS: BP 96/61; PULSE 65; RESP 14; O2SAT 99
[2024-03-13 23:58] VITALS: BP 113/76; PULSE 75; RESP 16; O2SAT 99
== END 2024-03-13 23:57 | disposition home or self-care (01) ==
PROVIDERS: Emergency Provider Physician Assistant; PCP Family Medicine
DX: R11.2 Nausea with vomiting, unspecified (principal); Z79.4 Long term (current) use of insulin; F17.210 Nicotine dependence, cigarettes, uncomplicated; E10.9 Type 1 diabetes mellitus without complications
CPT/HCPCS: 36415; 36416; 80053; 81001; 82009; 82962; 83690; 85025; 96372; 99283; J2765

== ENCOUNTER → 2024-03-14 09:52 | Outpatient (BNVA) | payer MEDICAID, SELFPAY ==
[2023-01-25 11:37] VITALS: BP 105/74; BMI 26.6
== END ==
PROVIDERS: PCP Family Medicine; Visit Provider Internal Medicine
DX: E10.9 Type 1 diabetes mellitus without complications (principal); E03.9 Hypothyroidism, unspecified
CPT/HCPCS: 80061; 83036; 84439; 84443

== ENCOUNTER 2024-05-18 10:10 | Outpatient (CLI) | payer MEDICAID, SELFPAY ==
[2024-03-15 14:17] VITALS: BP 102/60; BMI 28.8
[2024-05-18 11:06] LABS: Estmated Average Glucose 200; Hemoglobin A1C 8.6 % (4.0-6.0)
[2024-05-18 11:12] LABS: Creatinine Urine, Random 37 mg/dL (28-217); Microalbum Creatinine Ratio Ur 27 mg/dL (0-20); Microalbumin Random Urine 1 ug/dL (0-20)
[2024-05-18 11:14] LABS: Alanine Aminotransferase 12 U/L (0-33); Albumin Level 4.3 g/dL (3.5-5.2); Alkaline Phosphatase 48 U/L (35-105); Anion Gap 14.5 (5-19); Aspartate Amino Transferase 20 U/L (0-32); Blood Urea Nitrogen 15 mg/dL (6-20); Calcium 9.6 mg/dL (8.5-10.5); Carbon Dioxide 26 mmol/L (22-29); Chloride 100 mmol/L (98-107); Cholesterol 205 mg/dL (0-200); Free T4 Free Thyroxine 1.71 ng/dL (0.82-1.77); Globulin 3.4 g/dL (1.3-4.6); Glomerular Filtration Rate 80.3 mL/min (90-130); Glucose 112 mg/dL (65-115); HDL Cholesterol 64 mg/dL (60-100); LDL Cholesterol Calculated 131 mg/dL (50-129); LDL HDL Ratio 2.05 RATIO (0.00-3.22); Osmolality Calculated 284 mOsm/kg (285-295); Potassium 4.5 mmol/L (3.5-5.1); Sodium 136 mmol/L (136-145); Thyroid Stimulating Hormone 23.74 uIU/mL (0.27-4.20); Total Bilirubin 0.2 mg/dL (0.15-1.2); Total Protein 7.7 g/dL (6.6-8.7); Triglycerides 50 mg/dL (0-150)
== END 2024-05-18 10:11 | disposition home or self-care (01) ==
LOC: LAB 10:12
PROVIDERS: Visit Provider Internal Medicine
DX: E03.9 Hypothyroidism, unspecified (principal); E10.9 Type 1 diabetes mellitus without complications
CPT/HCPCS: 36415; 80053; 80061; 82044; 83036; 84439; 84443

== ENCOUNTER 2024-09-02 11:02 | Observation (INO) | payer MEDICAID, SELFPAY ==
[2024-03-15 14:17] VITALS: BP 102/60; BMI 28.8
[2024-09-02] VITALS (17 sets, daily range): BP systolic 99–123; BP diastolic 65–86; PULSE 73–104; RESP 16–20; TEMP 36.6–37.1; O2SAT 96–100; BMI 29.9; BMI 29.0
--- NOTE | 2024-09-02 11:41 | W.ED.NAVMDI ---
HPI - Nausea/Vomiting/Diarrhea General: Chief complaint: Nausea/Vomiting/Diarrhea Stated complaint: n/v/d Time Seen by Provider: 09/02/24 11:03 History of Present Illness: 38-year-old female with a history of diabetes, hypothyroidism, history of methamphetamine abuse who presents the emergency room with nausea vomiting and diarrhea that has been going on for about 3 days. No focal abdominal pain. She associates this with receiving a Trulicity injection for the first time just prior to the start of symptoms. No known fevers. No chest pain. No shortness of breath. No altered mental status. EMS reports her glucose was quite elevated over 400 initially. Related Data Home Medications ?Medication ?Instructions ?Recorded ?Confirmed cholecalciferol (vitamin D3) 50 50 mcg PO Q7D 04/07/23 08/22/24 mcg (2,000 unit) capsule fluticasone propionate 50 2 spray intranasal DAILY PRN 04/07/23 08/22/24 mcg/actuation nasal Allergy Symptoms spray,suspension (Flonase Allergy Relief) albuterol sulfate 2.5 mg/3 mL 2.5 mg inhalation .EVERY 4-6 HOURS 07/09/23 08/22/24 (0.083 %) solution for nebulization PRN Wheezing albuterol sulfate 90 mcg/actuation 2 puff inhalation .EVERY 4-6 HOURS 07/09/23 08/22/24 aerosol inhaler PRN shortness of breath or wheezing cetirizine 10 mg tablet (Allergy 10 mg PO DAILY 07/09/23 08/22/24 Relief (cetirizine)) Previous Rx's ?Medication ?Instructions ?Recorded glucagon HCl 1 mg solution for 1 mg IM Q20M PRN hypoglycemia #1 ea 03/31/23 injection (Glucagon (HCl) Emergency Kit) glucometer testing kit #1 ea 03/31/23 ipratropium 0.5 mg-albuterol 3 mg 3 ml inhalation QID PRN wheezing 07/10/23 (2.5 mg base)/3 mL nebulization #90 mL soln mirtazapine 15 mg tablet 15 mg PO BEDTIME #30 tabs 11/22/23 blood-glucose sensor (Dexcom G7 #3 ea 03/13/24 Sensor device) insulin glargine 100 unit/mL (3 See Rx Instructions .Route 05/10/24 mL) subcutaneous pen (Lantus .COMPLEX #15 mL Solostar U-100 Insulin) ondansetron HCl 4 mg tablet See Rx Instructions .Route 05/10/24 .COMPLEX #20 tabs insulin lispro 100 unit/mL 80 unit (0.8 mL) continuous 05/11/24 subcutaneous solution (Humalog subcutaneous infusion DAILY #70 mL U-100 Insulin) dulaglutide 0.75 mg/0.5 mL 0.75 mg (0.5 mL) SUBCUT Q7D 1 05/23/24 subcutaneous pen injector month #2 mL (Trulicity) dulaglutide 1.5 mg/0.5 mL 1.5 mg (0.5 mL) SUBCUT Q7D 1 month 05/23/24 subcutaneous pen injector #2 mL (Trulicity) dulaglutide 3 mg/0.5 mL 3 mg (0.5 mL) SUBCUT Q7D #2 mL 05/23/24 subcutaneous pen injector (Trulicity) levothyroxine 125 mcg tablet 125 mcg PO QAM #90 tabs 05/23/24 Allergies Allergy/AdvReac Type Severity Reaction Status Date / Time No Known Allergies Allergy Verified 08/22/24 15:10 Review of Systems Narrative: Constitutional symptoms: Negative except as documented in HPI. Skin symptoms: Negative except as documented in HPI. Eye symptoms: Negative except as documented in HPI. ENMT symptoms: Negative except as documented in HPI. Respiratory symptoms: Negative except as documented in HPI. Cardiovascular symptoms: Negative except as documented in HPI. Gastrointestinal symptoms: Negative except as documented in HPI. Genitourinary symptoms: Negative except as documented in HPI. Musculoskeletal symptoms: Negative except as documented in HPI. Neurologic symptoms: Negative except as documented in HPI. Psychiatric symptoms: Negative except as documented in HPI. Endocrine symptoms: Negative except as documented in HPI. 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) Lives independently: No Household members: children and other Details: [facility] Housing: House Marital status: Number of children: 2 Number of grandchildren: 0 Highest education level completed: High School Graduate Education level 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 Skin: Warm, dry. Head: Normocephalic, atraumatic. Neck: Supple, trachea midline. Eye: Extraocular movements are intact. Ears, nose, mouth and throat: Tacky oral mucosa Cardiovascular: Regular, Normal peripheral perfusion. Respiratory: Lungs are clear to auscultation, respirations are non-labored, breath sounds are equal, Symmetrical chest wall expansion. Gastrointestinal: Soft, Nontender, Non distended Musculoskeletal: Normal ROM, no deformity. Neurological: Alert and oriented, No focal neurological deficit observed. Psychiatric: Cooperative, appropriate mood & affect. Course Vital Signs: Vital signs: Vital Signs Pulse Rate 102 H 09/02/24 11:03 Respiratory Rate 18 09/02/24 11:03 Blood Pressure 109/77 09/02/24 11:03 Pulse Oximetry 98 09/02/24 11:03 Oxygen Delivery Me thod Room Air 09/02/24 11:03 MDM - Nausea/Vomiting/Diarrhea Medical Decision Making Medical decision making: Differential diagnosis for this patient with nausea and vomiting including but not limited to and based on the above HPI, review of systems and physical exam: Urinary tract infection. Appendicitis. Cholecystitis. Colitis. small bowel obstruction. crohn's flare. pancreatitis. gastritis. peptic ulcer. cyclic vomiting. Viral illness. Influenza. COVID. Orders placed to evaluate differential diagnosis based on the above differential, HPI and physical exam Lab Review: Laboratory results were reviewed and interpreted by myself the emergency room physician. No leukocytosis. No anemia. No renal failure. Glucose is elevated at 405. Serum ketones are positive. Urine is positive for serum ketones as well. Flu COVID and RSV are negative. Blood gas does not show acidosis. Ketones may just be from dehydration. I reviewed the patient's medical record. Reexamination: Patient continues to have vomiting despite multiple doses of Zofran. I am giving Compazine and Benadryl. We discussed admission. Given that she is prone to going into DKA and she is borderline for DKA today looking her lab work I think she should be admitted. Vomiting may be from a gastroenteritis or may be secondary to the Trulicity she was started on. Consultation: I spoke with Dr. Leigh who is on-call for the hospitalist service who agrees to admission. Placing her on observation for now. Assessment and plan: Intractable vomiting Dehydration Hyperglycemia ?2 L fluids. 1 started on ambulance and 1 here. Multiple doses of IV Zofran. Now given Compazine and Benadryl. -I discussed the patient with the hospitalist on-call who is admitting the patient. - Discussed findings and plan with patient. Answered any questions. - All laboratory values were reviewed and interpreted personally by myself, the ER physician - All imaging was reviewed and interpreted personally by myself, the ER physician. - Evaluation and treatment of this problem were appropriate in the emergency setting Lab Data 09/02/24 11:40 09/02/24 11:40 Laboratory Results WBC 10.22 10^3/uL (3.29-11.43) 09/02/24 11:40 RBC 4.30 10^6/uL (3.85-5.65) 09/02/24 11:40 Hgb 13.10 g/dL (11.27-16.99) 09/02/24 11:40 Hct 40.7 % (36-47) 09/02/24 11:40 MCV 94.7 fl (85-98) 09/02/24 11:40 MCH 30.5 pg (27-33) 09/02/24 11:40 MCHC 32.2 g/dL (30-55) 09/02/24 11:40 RDW 12.6 % (12.1-15.1) 09/02/24 11:40 Plt Count 312 10^3/cmm (157-399) 09/02/24 11:40 MPV 10.3 fL (7.4-10.4) 09/02/24 11:40 Neut % (Auto) 75.6 % 09/02/24 11:40 Lymph % (Auto) 17.4 % 09/02/24 11:40 [place] % (Auto) 4.9 % 09/02/24 11:40 Eos % (Auto) 1.4 % 09/02/24 11:40 Baso % (Auto) 0.5 % 09/02/24 11:40 Neut # (Auto) 7.73 10^3/uL (1.8-7.7) H 09/02/24 11:40 Lymph # (Auto) 1.8 10^3/uL (0.8-4.8) 09/02/24 11:40 [place] # (Auto) 0.5 10^3/uL (0.2-0.9) 09/02/24 11:40 Eos # (Auto) 0.1 10^3/uL (0.0-0.8) 09/02/24 11:40 Baso # (Auto) 0.1 10^3/uL (0.0-0.1) 09/02/24 11:40 Nucleated RBC % (auto) 0 % 09/02/24 11:40 Nucleated RBCs # 0.0 /100WBC 09/02/24 11:40 Specimen Type Arterial 09/02/24 12:10 Sample Site Radial, right 09/02/24 12:10 ABG pH 7.37 (7.35-7.45) 09/02/24 12:10 ABG pCO2 37.5 mmHg (35-45) 09/02/24 12:10 ABG pO2 77.3 mmHg (80.0-100.0) L 09/02/24 12:10 ABG PO2/FiO2 Ratio 368 09/02/24 12:10 ABG HCO3 21.8 mmol/L (22-26) L 09/02/24 12:10 ABG O2 Saturation 96.0 09/02/24 12:10 ABG Base Excess -3.0 mmol/L (-2.0-2.0) L 09/02/24 12:10 Cale Test Pos 09/02/24 12:10 A-a O2 Gradient 3.2 mmHg (5-10) L 09/02/24 12:10 Hematocrit 39.7 % (37-47) 09/02/24 12:10 Hgb O2 Saturation 94.1 % (95-100) L 09/02/24 12:10 Carboxyhemoglobin 1.7 %THgb (0.4-20.1) 09/02/24 12:10 Methemoglobin 0.3 % (0.4-1.5) L 09/02/24 12:10 Total Hemoglobin 13.0 g/dL (12-16) 09/02/24 12:10 Sodium 131.0 mmol/L (131-143) 09/02/24 12:10 Potassium 4.6 mmol/L (3.5-5.0) 09/02/24 12:10 Glucose 393.0 mg/dL (70-115) H 09/02/24 12:10 Ionized Calcium 1.2 mmol/L (1.1-1.4) 09/02/24 12:10 O2 Delivery Device Room air 09/02/24 12:10 FiO2 21.0 % 09/02/24 12:10 Material [employer] ID [place] 09/02/24 12:10 Sodium 128 mmol/L (136-145) L 09/02/24 11:40 Potassium 4.6 mmol/L (3.5-5.1) 09/02/24 11:40 Chloride 90 mmol/L (98-107) L 09/02/24 11:40 Carbon Dioxide 19 mmol/L (22-29) L 09/02/24 11:40 Anion Gap 23.6 (5-19) H 09/02/24 11:40 BUN 17 mg/dL (6-20) 09/02/24 11:40 Creatinine 1.0 mg/dL (0.5-0.9) H 09/02/24 11:40 GFR Calculation 62.1 mL/min (90-130) L 09/02/24 11:40 Glucose 405 mg/dL (65-115) H 09/02/24 11:40 POC Glucose 415 mg/dL (70-110) H 09/02/24 12:39 Calculated Osmolality 285 mOsm/kg (285-295) 09/02/24 11:40 Lactic Acid 1.5 mmol/L (0.5-2.2) 09/02/24 11:40 Calcium 9.4 mg/dL (8.5-10.5) 09/02/24 11:40 Total Bilirubin 0.8 mg/dL (0.15-1.2) 09/02/24 11:40 AST 11 U/L (0-32) 09/02/24 11:40 ALT 7 U/L (0-33) 09/02/24 11:40 Alkaline Phosphatase 59 U/L (35-105) 09/02/24 11:40 C-Reactive Protein 9.4 mg/L (0.0-4.9) H 09/02/24 11:40 Total Protein 8.3 g/dL (6.6-8.7) 09/02/24 11:40 Albumin 4.3 g/dL (3.5-5.2) 09/02/24 11:40 Globulin 4.0 g/dL (1.3-4.6) 09/02/24 11:40 Lipase 10 U/L (13-60) L 09/02/24 11:40 Urine Color Yellow (Yellow) 09/02/24 11:20 Urine Appearance Clear (CLEAR) 09/02/24 11:20 Urine pH 5 (5-7) 09/02/24 11:20 Ur Specific [place] 1.015 (1.005-1.030) 09/02/24 11:20 Urine Protein Neg (Negative) 09/02/24 11:20 Urine Glucose (UA) 4+ (Normal) H 09/02/24 11:20 Urine Ketones 2+ (Negative) H 09/02/24 11:20 Urine Blood Trace (Negative) H 09/02/24 11:20 Urine Nitrate Negative (Negative) 09/02/24 11:20 Urine Bilirubin Neg (Negative) 09/02/24 11:20 Urine Urobilinogen Neg mg/dL (Negative) 09/02/24 11:20 Ur Leukocyte Esterase Negative (Negative) 09/02/24 11:20 Urine RBC 0-2 /hpf (0-2) 09/02/24 11:20 Urine WBC 0-5 /hpf (0-5) 09/02/24 11:20 Ur Squamous Epith Cells 0-5 /hpf (0-5) 09/02/24 11:20 Amorphous Sediment Not Reportable 09/02/24 11:20 Urine Bacteria None seen /hpf (NONE) 09/02/24 11:20 Hyaline Casts 17.37 /lpf 09/02/24 11:20 Urine Opiates Screen Negative ng/mL (Negative) 09/02/24 11:20 Ur Barbiturates Screen Negative ng/mL (Negative) 09/02/24 11:20 Ur Phencyclidine Scrn Negative ng/mL (Negative) 09/02/24 11:20 Ur Amphetamines Screen Negative ng/mL (Negative) 09/02/24 11:20 U Benzodiazepines Scrn Negative ng/mL (Negative) 09/02/24 11:20 Urine Cocaine Screen Negative ng/mL (Negative) 09/02/24 11:20 U Marijuana (THC) Screen Negative ng/mL (Negative) 09/02/24 11:20 Serum Ketones Positive (Negative) H 09/02/24 11:40 Influenza A (PCR) Negative (Negative) 09/02/24 11:20 Influenza Type B (PCR) Negative (Negative) 09/02/24 11:20 RSV (PCR) Negative (Negative) 09/02/24 11:20 SARS-CoV-2 (PCR) Negative (Negative) 09/02/24 11:20 No radiology studies performed this visit Discharge Plan Discharge Patient Disposition: Placed in Observation Clinical Impression: Intractable vomiting, Dehydration, Hyperglycemia Coding Level of Care Code 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
[2024-09-02 11:46] LABS: Basophils # 0.1 10^3/uL (0.0-0.1); Basophils % 0.5 %; Eosinophils # 0.1 10^3/uL (0.0-0.8); Eosinophils % 1.4 %; Hematocrit 40.7 % (36-47); Lymphocytes # 1.8 10^3/uL (0.8-4.8); Lymphocytes % 17.4 %; Mean Corpuscular HGB Conc 32.2 g/dL (30-55); Mean Corpuscular Hemoglobin 30.5 pg (27-33); Mean Corpuscular Volume 94.7 fl (85-98); Mean Platelet Volume 10.3 fL (7.4-10.4); Monocytes # 0.5 10^3/uL (0.2-0.9); Monocytes % 4.9 %; Neutrophils # 7.73 10^3/uL (1.8-7.7); Neutrophils % 75.6 %; Nucleated Red Blood Cells % 0 %; Platelet Count 312 10^3/cmm (157-399); Red Cell Distribution Width 12.6 % (12.1-15.1); White Blood Count 10.22 10^3/uL (3.29-11.43)
[2024-09-02 11:52] LABS: Bilirubin Urine Neg (Negative); Blood Urine Trace (Negative); Glucose Urine UA 4+ (Normal); Ketones Urine 2+ (Negative); Leukocyte Esterase Urine Negative (Negative); Nitrate Urine Negative (Negative); Protein Urine Neg (Negative); Specific Gravity, Urine 1.015 (1.005-1.030); Urine Appearance Clear (CLEAR); Urine Color Yellow (Yellow); Urobilinogen Urine Neg (Negative); pH Urine 5 (5-7)
[2024-09-02 11:53] LABS: Bacteria Urine None Seen /hpf; Hyaline Casts Urine 17.37 /lpf; RBC Urine 0-2 /hpf (0-2); Squamous Epithelial Cell Urine 0-5 /hpf (0-5); WBC Urine 0-5 /hpf (0-5)
[2024-09-02 11:54] LABS: Ketone (Acetest) Serum Positive (Negative)
[2024-09-02 12:03] LABS: UA Slide Review UA Slide Review Perf
[2024-09-02] MEDS: ondansetron 2 mg/ML SDV 2 mL 8 MG IVP (12:06)
[2024-09-02 12:07] LABS: Alanine Aminotransferase 7 U/L (0-33); Albumin Level 4.3 g/dL (3.5-5.2); Alkaline Phosphatase 59 U/L (35-105); Anion Gap 23.6 (5-19); Aspartate Amino Transferase 11 U/L (0-32); Blood Urea Nitrogen 17 mg/dL (6-20); C Reactive Protein 9.4 mg/L (0.0-4.9); Calcium 9.4 mg/dL (8.5-10.5); Carbon Dioxide 19 mmol/L (22-29); Chloride 90 mmol/L (98-107); Glomerular Filtration Rate 62.1 mL/min (90-130); Glucose 405 mg/dL (65-115); Lipase 10 U/L (13-60); Osmolality Calculated 285 mOsm/kg (285-295); Potassium 4.6 mmol/L (3.5-5.1); Sodium 128 mmol/L (136-145); Total Bilirubin 0.8 mg/dL (0.15-1.2); Total Protein 8.3 g/dL (6.6-8.7)
[2024-09-02] MEDS: sodium chloride 0.9% 1,000 ML 999 ML IV (12:07)
[2024-09-02 12:08] LABS: Lactic Sepsis W/Reflex 1.5 mmol/L (0.5-2.2)
[2024-09-02 12:21] LABS: ABG PCO2 37.5 mmHg (35-45); ABG PH Result 7.37 (7.35-7.45); Alveolar-Arterial Oxygen Gradi 3.2 mmHg (5-10); Arterial Blood Gas Hematocrit 39.7 % (37-47); Blood Gas Allen Test Pos; Blood Gas Operator Identificat WALCI; Blood Gas Sample Site Radial, right; Blood Gas Sample Type Arterial; Carboxyhemoglobin 1.7 %THgb (0.4-20.1); HCO3 ABG 21.8 mmol/L (22-26); HGB O2 Sat 94.1 % (95-100); Ionized Calcium Level - ABG 1.2 mmol/L (1.1-1.4); Methemoglobin 0.3 % (0.4-1.5); Oxygen Device ROOM AIR; PO2 ABG 77.3 mmHg (80.0-100.0); PO2 FiO2 Ratio Arterial Blood 368; Potassium Level - ABG 4.6 mmol/L (3.5-5.0)
[2024-09-02 12:26] LABS: Influenza A NEGATIVE (Negative); Influenza B NEGATIVE (Negative); Respiratory Syncytial Virus Ce NEGATIVE (Negative); SARS-CoV-2 PCR NEGATIVE (Negative)
[2024-09-02 12:32] LABS: Amphetamines Screen Urine Negative (Negative); Barbiturates Screen Urine Negative (Negative); Benzodiazepines Screen Urine Negative (Negative); Cocaine Screen Urine Negative (Negative); Opiate Screen Urine Negative (Negative); PCP Screen Urine Negative (Negative); THC Screen Urine Negative (Negative)
[2024-09-02 12:41] LABS: Glucose Point of Care 415 mg/dL (70-110)
[2024-09-02] MEDS: diphenhydrAMINE 50 mg/mL SDV 1mL IVP (13:12)
[2024-09-02] MEDS: prochlorperazine 10 mg/2 mL Inj IVP (13:15)
[2024-09-02 17:46] LABS: Glucose Point of Care 343 mg/dL (70-110)
--- NOTE | 2024-09-02 17:48 | P.HP_ITS ---
Providers/Chief Complaint 2 Admitting Physician: Reagan Leigh DO Chief Complaint: n/v/d History of Present Illness Ling Humphrey is a 38 year old female with PMH of TIDM, recently started on Trulicity for weight loss presents with elevated Glucose, N/V/D. Symptoms started on Wednesday after receiving first dose of Trulicity. Has had nausea and vomiting since that time. Unable to eat or drink due to symptoms. Has taken otc medications without improvement. States that she has TIDM and is on long and short acting insulin. In the ER her glucose was 405 sodium was a little bit low to 128,, but corrects appropriately. Her potassium was within normal range at 4.6. She did have a 23.6 anion gap. Creatinine slightly elevated at 1.0. Lipase was normal. CRP slightly elevated to 9.4. She did have small amount of ketones present in the urine, with no other signs of infection. Was given a dose of Zofran in the ER, and states that she was ready to try to eat some crackers and sip on something to drink. No fevers or other symptoms reported. Review of Systems 2 General: Reports: 10 or more systems reviewed and unremarkable except in HPI and below Medications/Allergies Home Medications ?Medication ?Instructions ?Recorded ?Confirmed ?Last Taken ?Type glucagon HCl 1 mg solution for 1 mg IM Q20M PRN hypogl ycemia #1 ea 03/31/23 09/02/24 Unknown Rx injection (Glucagon (HCl) Emergency Kit) glucometer testing kit #1 ea 03/31/23 09/02/24 Unkn own Rx fluticasone propionate 50 2 spray intranasal DAILY PRN 04/07/23 09/02/24 Unknown History mcg/actuation nasal Allergy Symptoms spray,suspension (Flonase Allergy Relief) blood-glucose sensor (Dexcom G7 #3 ea 03/13/24 5 Unknown Rx Sensor device) insulin glargine 100 unit/mL (3 See Rx Instructions .R oute 05/10/24 09/02/24 09/01/24 Rx mL) subcutaneous pen (Lantus .COMPLEX #15 mL Solostar U-100 Insulin) insulin lispro 100 unit/mL 80 unit (0.8 mL) continuous 05/11/24 09/02/24 Unknown Rx subcutaneous solution (Humalog subcutaneous infusion D AILY #70 mL U-100 Insulin) dulaglutide 0.75 mg/0.5 mL 0.75 mg (0.5 mL) SUBCUT Q7D 1 05/23/24 09/02/24 08/30/24 Rx subcutaneous pen injector month #2 mL (Trulicity) dulaglutide 1.5 mg/0.5 mL 1.5 mg (0.5 mL) SUBCUT Q7D 1 month 05/23/24 09/02/24 Unknown Rx subcutaneous pen injector #2 mL (Trulicity) dulaglutide 3 mg/0.5 mL 3 mg (0.5 mL) SUBCUT Q7D #2 mL 05/23/24 09/02/24 Unknown Rx subcutaneous pen injector (Trulicity) levothyroxine 125 mcg tablet 125 mcg PO QAM #90 tabs 1 07/24/23 09/02/24 08/30/24 Rx ondansetron HCl 4 mg tablet 4 mg PO Q6H PRN Nausea And Vomiting 09/02/24 09/02/24 Unknown History Allergies Allergy/AdvReac Type Severity Reaction Status Date / Time No Known Allergies Allergy Verified 08/22/24 15:10 PFSH Acute 2 PFSH: Medical History Psychiatric care Methamphetamine abuse Psychiatric disorder Hypothyroidism Type 1 diabetes mellitus Surgical History H/O section H/O tubal ligation H/O kidney removal LEFT SIDE Family History Father Lung cancer Social History Smoking and tobacco/nicotine status: never used tobacco/nicotine Quit status (tobacco/nicotine): not considering quitting Second hand smoke exposure: Yes Alcohol intake: former Former alcohol use details: 08.20.23 Substance/Drug Use: former Date of last use: 04/03/23 Adopted: No 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) Lives independently: No Household members: children and other Details: [facility] Housing: House Marital status: Number of children: 2 Number of grandchildren: 0 Highest education level completed: High School Graduate 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, [employer] service: No Current occupational status: unemployed Current occupational exposures/hazards: No Pets and animals: No Leisure activites: reading and other Leisure activities details: 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, 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 Sexually active: No Do you think of yourself as: Straight/Heterosexual Current gender identity: Female Flavia/Zoroastrianism: Sabianism Special flavia needs: No Agree to transfusion: Yes Female Reproductive History: Para: 2 Spontaneous abortions: No Vitals/I&O/Wt Last Vital Signs Pulse 102 H 09/02/24 11:03 Resp 18 09/02/24 11:03 BP 109/77 09/02/24 11:03 Pulse Ox 98 09/02/24 11:03 O2 Del Method Room Air 09/02/24 11:03 09/02/24 09/02/24 09/02/24 06:59 14:59 22:59 Intake Total 1000 / 1000 Balance 1000 / 1000 Weight last 48 hrs Weight 169 lb 5 oz Weight 169 lb Physical Exam 2 Narrative: General: Cooperative patient in no apparent distress. Well developed. HEENT: Normocephalic, Atraumatic. External ears normal. Nasal passages patent without drainage. MMM. Heart: RRR. Resp: LCTA. No respiratory distress, no use of accessory muscles. Abd: Soft, non-tender. Non-distended. Extremities: No edema. Skin: No rash or lesions on exposed areas. Data 09/02/24 11:40 09/02/24 11:40 Micro: Microbiology 09/02/24 11:35 Blood Culture - Preliminary Blood SPECIMEN COLLECTED 09/02/24 11:40 Blood Culture - Preliminary Blood SPECIMEN COLLECTED A&P Assessment and plan (1) Type 1 diabetes mellitus: Qualifiers: Diabetes mellitus complication status: without complication Qualified Code(s): E10.9 - Type 1 diabetes mellitus without complications (2) Intractable vomiting: (3) Hyperglycemia: (4) Hypothyroidism: (5) Psychiatric disorder: (6) Dehydration: Plan 38-year-old female admitted for intractable nausea and vomiting. She has a history of type 1 diabetes. Admit overnight for observation. Will provide antiemetics, IV hydration, restart her insulins due to hyperglycemia. She had improvement in her nausea with Zofran. We will continue this throughout her stay. Will add IV hydration. Has a pseudohyponatremia which corrected to 133. K remains normal. Likely adverse response to medication after starting trulicity. Will stop medication and she will need to discuss this with her provider given that med is not recommended with TIDM. Recheck am labs. Continue lantus and add SSI for now. If improves overnight and tolerates oral intake well, consider discharging home. If worsening overnight, she may need to transfer to ICU for additional management, possibly insulin drip depending on sugars. PDMP PDMP Reviewed: Not Reviewed Attestations 2 Medical Necessity Statement*: Will place in observation for hyperglycemia, dehydration, increased anion gap, antiemetics and recheck on labs. Coding Level of Care Code Acute Code for Chg Fwd Moderate MDM includes number and complexity of problems actively addressed during encounter and amount and/or complexity of data reviewed/ordered as documented Diagnoses Type 1 diabetes mellitus without complication E10.9 Diabetes mellitus complication status: without complication Intractable vomiting R11.10 Hyperglycemia R73.9 Hypothyroidism E03.9 Psychiatric disorder F99 Dehydration E86.0
[2024-09-02 17:49] LABS: Glucose Point of Care 362 mg/dL (70-110)
[2024-09-02] MEDS: famotidine 20 mg Tablet PO (18:01)
[2024-09-02] MEDS: insulin lispro 100 unit/1 mL SUBCUT ×2 (18:01→20:54)
[2024-09-02] MEDS: sodium chloride 0.9% 1,000 ML 100 ML IV (18:29)
[2024-09-02 20:30] LABS: Glucose Point of Care 303 mg/dL (70-110)
[2024-09-02] MEDS: insulin glargine 100 units/1 mL 30 UNIT SUBCUT (20:54)
[2024-09-03] VITALS: BP 95/58; PULSE 81; RESP 16; TEMP 36.9; O2SAT 96
[2024-09-03] MEDS: sodium chloride 0.9% 1,000 ML 100 ML IV (03:33)
[2024-09-03 04:00] VITALS: BP 91/63; PULSE 77; RESP 20; TEMP 36.6; O2SAT 97
[2024-09-03 06:01] LABS: Basophils % 0.6 %; Eosinophils # 0.2 10^3/uL (0.0-0.8); Eosinophils % 3.1 %; Hematocrit 34.1 % (36-47); Lymphocytes # 1.9 10^3/uL (0.8-4.8); Lymphocytes % 26.6 %; Mean Corpuscular HGB Conc 34.6 g/dL (30-55); Mean Corpuscular Hemoglobin 31.1 pg (27-33); Monocytes # 0.6 10^3/uL (0.2-0.9); Monocytes % 8.6 %; Neutrophils # 4.36 10^3/uL (1.8-7.7); Neutrophils % 60.8 %; Nucleated Red Blood Cells % 0 %; Platelet Count 300 10^3/cmm (157-399); Red Blood Count 3.79 10^6/uL (3.85-5.65); Red Cell Distribution Width 12.6 % (12.1-15.1); White Blood Count 7.17 10^3/uL (3.29-11.43)
[2024-09-03 06:32] LABS: Alanine Aminotransferase 6 U/L (0-33); Albumin Level 3.7 g/dL (3.5-5.2); Alkaline Phosphatase 48 U/L (35-105); Anion Gap 14.9 (5-19); Aspartate Amino Transferase 12 U/L (0-32); Blood Urea Nitrogen 13 mg/dL (6-20); Calcium 8.7 mg/dL (8.5-10.5); Carbon Dioxide 23 mmol/L (22-29); Chloride 101 mmol/L (98-107); Globulin 2.6 g/dL (1.3-4.6); Glomerular Filtration Rate 80.3 mL/min (90-130); Glucose 73 mg/dL (65-115); Osmolality Calculated 279 mOsm/kg (285-295); Potassium 3.9 mmol/L (3.5-5.1); Sodium 135 mmol/L (136-145); Thyroid Stimulating Hormone 45.63 uIU/mL (0.27-4.20); Total Bilirubin 0.3 mg/dL (0.15-1.2); Total Protein 6.3 g/dL (6.6-8.7)
[2024-09-03 06:38] LABS: Glucose Point of Care 118 mg/dL (70-110)
[2024-09-03 06:58] LABS: Slide Review Slide Review Perform
[2024-09-03 07:36] LABS: Free T4 Free Thyroxine 0.81 ng/dL (0.82-1.77); T3 Free 1.3 PG/ML (2.0-4.4)
[2024-09-03 07:42] VITALS: BP 102/68; PULSE 80; RESP 18; TEMP 36.8; O2SAT 94
--- NOTE | 2024-09-03 08:55 | P.SS_ITS ---
Short Stay Summary Providers Date of Admit/Discharge: 09/04/24 Attending Provider: Reagan Leigh DO Chief Complaint: n/v/d HPI History of Present Illness Ling Humphrey is a 38 year old female with PMH of TIDM, recently started on Trulicity for weight loss presents with elevated Glucose, N/V/D. She initially presented to the ER with symptoms started last Wednesday after receiving her first dose of Trulicity. She has been unable to tolerate any oral intake since that time. She has had persistent nausea, vomiting, and diarrhea. She has taken some [id number] antiemetics but they have not helped with her symptoms. She is a type I diabetic. Upon presentation to the ER her glucose was noted to be 405. Her sodium was low at 128 but it corrected appropriately when considering her glucose. Potassium was normal range of 4.6. She did have a 23.6 anion gap. She was admitted for IV fluids, antiemetics, and pain control. Review of Systems General: Reports: 10 or more systems reviewed and unremarkable except in HPI and below Home Meds/Allergies Home Medications and Allergies Home Medications ?Medication ?Instructions ?Recorded ?Confirmed ?Type fluticasone propionate 50 2 spray intranasal DAILY PRN 04/07/23 09/04/24 History mcg/actuation nasal Allergy Symptoms spray,suspension (Flonase Allergy Relief) blood sugar diagnostic (OneTouch #10 ea 09/04/2409/04 History Verio test strips) dulaglutide 3 mg/0.5 mL mg SUBCUT 09/04/24 09/04/24 History subcutaneous pen injector (Trulicity) Allergies Allergy/AdvReac Type Severity Reaction Status Date / Time No Known Allergies Allergy Verified 09/04/24 14:55 PFSH Acute PFSH: Medical History Psychiatric care Methamphetamine abuse Psychiatric disorder Hypothyroidism Type 1 diabetes mellitus Surgical History H/O section H/O tubal ligation H/O kidney removal LEFT SIDE Family History Father Lung cancer Social History Smoking and tobacco/nicotine status: never used tobacco/nicotine Quit status (tobacco/nicotine): not considering quitting Second hand smoke exposure: Yes Alcohol intake: former Former alcohol use details: 08.20.23 Substance/Drug Use: former Date of last use: 04/03/23 Adopted: No 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) Lives independently: No Household members: children and other Details: lives at [facility] women's sobriety house - 6 women Housing: House Marital status: Number of children: 2 Number of grandchildren: 0 Highest education level completed: High School Graduate Education level details: 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, [employer] service: No Current occupational status: unemployed Current occupational exposures/hazards: No Pets and animals: No Leisure activites: reading and other Leisure activities details: 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, 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 Sexually active: No Do you think of yourself as: Straight/Heterosexual Current gender identity: Female Flavia/Latter-Day: Worship Special flavia needs: No Agree to transfusion: Yes Female Reproductive History: Para: 2 Spontaneous abortions: No Vitals/I&O/Wt Last Vital Signs Temp 98.2 F 09/03/24 07:42 Pulse 80 09/03/24 07:42 Resp 18 09/03/24 07:42 BP 102/68 09/03/24 07:42 Pulse Ox 94 09/03/24 07:42 O2 Del Method Room Air 09/03/24 07:42 09/02/24 09/03/24 09/03/24 22:59 06:59 14:59 Intake Total 700 / 1700 1075 / 2775 240 / 240 Balance 700 / 1700 1075 / 2775 240 / 240 Weight last 48 hrs Weight 178 lb 8 oz Weight 169 lb 5 oz Weight 169 lb Physical Exam Narrative: General: Cooperative patient in no apparent distress. Well developed. HEENT: Normocephalic, Atraumatic. External ears normal. Nasal passages patent without drainage. MMM. Heart: RRR. Resp: LCTA. No respiratory distress, no use of accessory muscles. Abd: Soft, non-tender. Non-distended. Extremities: No edema. Skin: No rash or lesions on exposed areas. Hospital Course Admission Diagnoses Intractable vomiting, hyperglycemia, hypothyroidism, dehydration. Hospital Course She was admitted overnight for observation. She received antiemetics, IV hydration, and her insulins were restarted due to her elevated glucose. She had improvement with her nausea and was able to tolerate oral intake. Her sodium was corrected 233 and her potassium or any normal throughout the rest of her stay. She was encouraged to avoid further dosing of Trulicity as this was likely the inciting event. Her labs remained stable. She was discharged in stable and improved condition. SSS Data Data Completed and Pending: Pending at discharge Category Date Time Status Blood Culture Sta t Lab 09/02/24 11:35 Results Diagnoses at Discharge Discharge Diagnosis (1) Type 1 diabetes mellitus: Status: Acute Qualifiers: Diabetes mellitus complication status: without complication Qualified Code(s): E10.9 - Type 1 diabetes mellitus without complications (2) Intractable vomiting: Status: Resolved (3) Hyperglycemia: Status: Acute (4) Hypothyroidism: Status: Acute (5) Psychiatric disorder: Status: Acute (6) Dehydration: Status: Resolved Discharge Plan Discharge Patient Disposition: Home Condition: Stable Prescriptions: Continued fluticasone propionate [Flonase Allergy Relief] 50 mcg/actuation spray,suspension 2 spray intranasal DAILY PRN (Reason: Allergy Symptoms) Rx Instructions: administer into each nostril levothyroxine 125 mcg tablet 125 mcg PO QAM Qty: 90 2RF (DME) Dexcom G7 Sensor Device See Rx Instructions .Route Qty: 3 1RF Rx Instructions: As directed Lantus Solostar U-100 Insulin 100 unit/mL (3 mL) insulin pen See Rx Instructions .ROUTE .COMPLEX Qty: 15 0RF Dose Instruction: INJECT 25 UNITS SUBCUTANEOUS EVERY MORNING AND 15 UNITS EVERY EVENING Rx Instructions: INJECT 25 UNITS SUBCUTANEOUS EVERY MORNING AND 15 UNITS EVERY EVENING insulin lispro [Humalog U-100 Insulin] 100 unit/mL solution 80 unit continuous subcutaneous infusion DAILY Qty: 70 1RF Rx Instructions: 80 units via insulin pump daily glucagon HCl [Glucagon (HCl) Emergency Kit] 1 mg recon soln 1 mg IM Q20M PRN (Reason: hypoglycemia) Qty: 1 0RF Rx Instructions: until target blood sugar attained (DME) glucometer testing kit See Rx Instructions .Route .MEDSUPPLY Qty: 1 0RF Rx Instructions: Glucometer testing kit Lancets #100 Strips #100 Discontinued Trulicity 0.75 mg/0.5 mL pen injector 0.75 mg SUBCUT Q7D 30 Days Qty: 2 0RF Rx Instructions: inject 0.75mg weekly for one month than increase to 1.5mg on Wednesday. Trulicity 1.5 mg/0.5 mL pen injector 1.5 mg SUBCUT Q7D 30 Days Qty: 2 0RF Rx Instructions: inject 1.5mg weekly for one month than increase to 3mg Trulicity 3 mg/0.5 mL pen injector 3 mg SUBCUT Q7D Qty: 2 0RF Rx Instructions: inject 3mg weekly No Action Trulicity 3 mg/0.5 mL pen injector SUBCUT (DME) OneTouch Verio test strips Strip See Rx Instructions .ROUTE .MEDSUPPLY Qty: 10 Rx Instructions: As directed Discharge Orders: Discharge Order (Routine); Ordered 09/03/24 Ordered By: Reagan Leigh Referrals: Pamela Carrasco MD [Physician] - 1-3 days (Please call your doctor's office tomorrow and make an appointment for 1 to 3 days. ) Discharge Diet: Advance as tolerated Patient Instructions: Dehydration - Adult, Acute Nausea and Vomiting (DC), Opioid Safety Attestations Medical Necessity Statement*: Patient to be discharged today after overnight observation stay. She was improved and stable condition. Time Spent in Patient Care*: less than 30 min Specific Discharge Activities: Specific discharge activities: educating patient, educating and/or supporting family/caregiver, discussing with pcp/other providers, documenting/other paperwork and evaluating patient/reviewing data Quality Metrics Clinical Quality Measures: [ No reported AMI, CVA or VTE this stay ] Coding Level of Care Code Acute Code for Chg Fwd Straight Forward/Low MDM includes number and complexity of problems actively addressed during encounter, amount and/or complexity of data reviewed/ordered and described risk of complication, morbidity or mortality of management as documented Diagnoses Type 1 diabetes mellitus without complication E10.9 Diabetes mellitus complication status: without complication Intractable vomiting R11.10 Hyperglycemia R73.9 Hypothyroidism E03.9 Psychiatric disorder F99 Dehydration E86.0
[2024-09-03 09:30] VITALS: BP 102/68; PULSE 80; RESP 16; TEMP 36.8; O2SAT 95
== END 2024-09-03 09:00 | disposition home or self-care (01) ==
LOC: ER 12:47 → MEDSURG 17:15
PROVIDERS: Admitting Provider Family Medicine; Emergency Provider Emergency Medicine; Visit Provider Family Medicine
DX: E86.0 Dehydration (principal); E10.65 Type 1 diabetes mellitus with hyperglycemia; R11.10 Vomiting, unspecified; R19.7 Diarrhea, unspecified; E03.9 Hypothyroidism, unspecified; F99 Mental disorder, not otherwise specified; Z79.4 Long term (current) use of insulin
CPT/HCPCS: 36415; 36416; 36600; 80051; 80053; 80306; 81001; 82009; 82330; 82805; 82962; 83605; 83690; 84439; 84443; 84481; 85025; 86140; 87040; 87637; 96372; G0378; J0780; J1200; J1815; J2405; J7030; J9999

== ENCOUNTER → 2024-09-05 10:24 | Outpatient (BNVA) | payer MEDICAID, SELFPAY ==
[2024-03-15 14:17] VITALS: BP 102/60; BMI 28.8
== END ==
PROVIDERS: Visit Provider Internal Medicine
DX: E10.9 Type 1 diabetes mellitus without complications (principal); E16.2 Hypoglycemia, unspecified; E03.9 Hypothyroidism, unspecified; Z90.5 Acquired absence of kidney
CPT/HCPCS: 83036

== ENCOUNTER → 2024-09-06 10:17 | Outpatient (BNVA) | payer MEDICAID, SELFPAY ==
[2024-03-15 14:17] VITALS: BP 102/60; BMI 28.8
== END ==
PROVIDERS: PCP Nurse Practitioner; Visit Provider Nurse Practitioner
DX: R30.0 Dysuria (principal); F32.A Depression, unspecified; N89.8 Other specified noninflammatory disorders of vagina
CPT/HCPCS: 81000; 82306; 87086

== ENCOUNTER → 2024-10-18 11:30 | Outpatient (BNVA) | payer MEDICAID, SELFPAY ==
[2024-03-15 14:17] VITALS: BP 102/60; BMI 28.8
== END ==
PROVIDERS: PCP Nurse Practitioner; Visit Provider Nurse Practitioner
DX: R73.9 Hyperglycemia, unspecified (principal); E03.9 Hypothyroidism, unspecified
CPT/HCPCS: 84439; 84443

== ENCOUNTER → 2024-12-21 09:10 | Outpatient (BNVA) | payer MEDICAID, SELFPAY ==
[2024-03-15 14:17] VITALS: BP 102/60; BMI 28.8
== END ==
PROVIDERS: PCP Nurse Practitioner; Visit Provider Internal Medicine
DX: E16.2 Hypoglycemia, unspecified (principal); E10.9 Type 1 diabetes mellitus without complications; E03.9 Hypothyroidism, unspecified; Z90.5 Acquired absence of kidney
CPT/HCPCS: 36415; 80053; 80061; 82044; 83036; 84439; 84443

== ENCOUNTER → 2025-01-08 11:18 | Outpatient (BNVA) | payer MEDICAID, SELFPAY ==
[2024-03-15 14:17] VITALS: BP 102/60; BMI 28.8
== END ==
PROVIDERS: PCP Nurse Practitioner; Visit Provider Nurse Practitioner
DX: Z78.9 Other specified health status (principal); Z12.4 Encounter for screening for malignant neoplasm of cervix
CPT/HCPCS: 88175

== ENCOUNTER 2025-03-20 13:47 | Outpatient (CLI) | payer MEDICAID, SELFPAY ==
[2024-03-15 14:17] VITALS: BP 102/60; BMI 28.8
[2025-03-20 16:15] LABS: Estmated Average Glucose 217; Hemoglobin A1C 9.2 % (4.0-6.0)
[2025-03-20 16:37] LABS: Creatinine Urine, Random 156 mg/dL (28-217); Microalbum Creatinine Ratio Ur 13 mg/dL (0-20)
[2025-03-20 19:04] LABS: Alanine Aminotransferase 13 U/L (0-33); Albumin Level 4.3 g/dL (3.5-5.2); Alkaline Phosphatase 53 U/L (35-105); Anion Gap 15.9 (5-19); Aspartate Amino Transferase 17 U/L (0-32); Blood Urea Nitrogen 17 mg/dL (6-20); Calcium 9.2 mg/dL (8.5-10.5); Carbon Dioxide 27 mmol/L (22-29); Chloride 95 mmol/L (98-107); Cholesterol 143 mg/dL (0-200); Globulin 3.3 g/dL (1.3-4.6); Glucose 328 mg/dL (65-115); HDL Cholesterol 53 mg/dL (60-100); Osmolality Calculated 292 mOsm/kg (285-295); Potassium 3.9 mmol/L (3.5-5.1); Sodium 134 mmol/L (136-145); Thyroid Stimulating Hormone 1.76 uIU/mL (0.27-4.20); Total Protein 7.6 g/dL (6.6-8.7); Triglycerides 95 mg/dL (0-150)
[2025-03-20 21:04] LABS: Free T4 Free Thyroxine 1.51 ng/dL (0.82-1.77)
== END 2025-03-20 13:48 | disposition home or self-care (01) ==
LOC: LAB 13:49
PROVIDERS: PCP Nurse Practitioner; Visit Provider Internal Medicine
DX: E10.9 Type 1 diabetes mellitus without complications (principal)
CPT/HCPCS: 36415; 80053; 80061; 82044; 83036; 84439; 84443